=== PATIENT | female | born 1955 | race Caucasian/White ===

== ENCOUNTER 2019-07-06 14:00 | Outpatient (CLI) | payer MEDICARE, SELFPAY ==
--- NOTE | ~2019-07-06 | XR_ITS ---
XR tibia fibula RT 2V DATE: 07/06/2019 14:38 INDICATION: Pain, swelling at the posterior mid calf TECHNIQUE: AP and lateral views COMPARISON: None FINDINGS: There is enthesopathy of the superior pole of the patella at the quadriceps tendon insertio n. There is minimal periarticular spurring of the patella consistent with osteoarthritis. Minimal plantar calcaneal enthesopathy. No fracture, dislocation, periosteal reaction or bone destruction is detected. Normal alignment at th e knee and ankle joints. IMPRESSION: No radiographic etiology for posterior mid calf pain is identified Reviewed, dictated and finalized at location A.
--- NOTE | ~2019-07-06 | US_ITS ---
EXAMINATION: US venous doppler LE RT DATE: 07/06/2019 14:34 INDICATION: Lower limb pain, cramps and spasms TECHNIQUE: Grayscale ultrasound images without and with compression and Doppler ultrasound images of the right lower extremity veins were obtained. COMPARISON: None. FINDINGS: The visualized portions of right common femoral vein, profunda (deep) femoral vein, femoral vein, pop liteal vein, peroneal trunk, posterior tibial veins, peroneal veins, gastrocnemius vein and greater s aphenous vein outflow are patent. IMPRESSION: 1. No deep venous thrombosis in the right lower limb. Reviewed, dictated and finalized at location A.
[2019-07-06 14:56] LABS: Basophils Absolute Auto 0.1 K/mm3 (0.0-0.1); Basophils Percent Auto 0.8 % (0.2-1.2); Eosinophils Absolute Auto 0.3 K/mm3 (0-0.3); Eosinophils Percent Auto 2.4 % (0-4.4); Hematocrit 43.8 % (37.0-47.0); Immature Granulocyte Absolute 0.04 K/mm3 (0.00-0.031); Immature Granulocyte Percent A 0.3 % (0-0.5); Lymphocytes Absolute Auto 3.17 K/mm3 (0.9-3.2); Lymphocytes Percent Auto 27.3 % (18.3-44.2); Mean Corpuscular Hemoglobin 28.7 pg (26-34); Mean Corpuscular Volume 89.9 fl (80-100); Mean Platelet Volume 10.2 fl (7.4-10.4); Monocytes Absolute Auto 0.6 K/mm3 (0.1-0.6); Monocytes Percent Auto 5.1 % (2.6-8.5); Neutrophils Absolute Auto 7.5 K/mm3 (1.3-6.7); Neutrophils Percent Auto 64.1 % (45.5-73.1); Platelet Count Result 382 k/mm3 (150-375); Red Blood Count 4.87 M/mm3 (4.2-5.4); Red Cell Distribution Width 13.8 % (11.5-14.5); White Blood Count 11.6 K/mm3 (4.5-10.0)
[2019-07-06 15:05] LABS: Alanine Aminotransferase 92 U/L (4-35); Albumin Level 4.3 g/dL (3.5-5.1); Alkaline Phosphatase 110 U/L (38-126); Aspartate Amino Transferase 125 U/L (14-36); Bilirubin,Total 0.4 mg/dL (0.2-1.3); Blood Urea Nitrogen 16 mg/dL (7-17); CRP 2.5 mg/dL (<1.0); Carbon Dioxide 25 mmol/L (22-30); Chloride 105 mmol/L (98-107); Creatine Kinase 45 U/L (30-135); Estimated Glomerular Filt Rate > 60; Glucose 85 mg/dL (65-105); Lactate Dehydrogenase 658 U/L (313-618); Potassium 4.2 mmol/L (3.4-5.0); Sodium 138 mmol/L (137-145); Uric Acid 8.4 mg/dL (2.5-7.5)
[2019-07-06 15:45] LABS: Erythrocyte Sedimentation Rate 24 mm/hr (0-20)
[2019-07-10 02:12] LABS: Aldolase 14.1 U/L (<=8.1)
== END 2019-07-06 14:01 | disposition home or self-care (01) ==
PROVIDERS: PCP Family Medicine Adolescent Medicine; Visit Provider Internal Medicine
DX: M19.90 Unspecified osteoarthritis, unspecified site (principal); R25.2 Cramp and spasm; R89.9 Unspecified abnormal finding in specimens from other organs, systems and tissues; M79.89 Other specified soft tissue disorders
CPT/HCPCS: 36415; 73590; 80053; 82085; 82550; 83615; 83735; 84550; 85025; 85652; 86140; 93971

== ENCOUNTER 2019-07-14 08:29 | Outpatient (CLI) | payer MEDICARE, SELFPAY ==
--- NOTE | ~2019-07-14 | MR_ITS ---
EXAMINATION: MR lower leg RT wo/w con DATE: 07/14/2019 10:55 INDICATION: Right calf pain. TECHNIQUE: Magnetic resonance imaging (MRI) of the right tibia and fibula was performed without and w ith 19 mL MultiHance intravenous contrast. Sequences included coronal, axial, and sagittal T1-weighte d FSE and STIR FSE, axial T1-weighted FS FSE, and postcontrast axial and sagittal T1-weighted FS FSE. COMPARISON: Right tibia and fibula radiographs 07/06/2019 FINDINGS: Bone alignment is normal. No fracture. There is mild osteoarthritis of the knees. The muscl es are normal. There is subcutaneous edema at the anterior and lateral aspects of the right lower leg . IMPRESSION: 1. No etiology for right calf pain. Reviewed, dictated and finalized at location A.
--- NOTE | ~2019-07-14 | US_ITS ---
EXAMINATION: US abdomen complete DATE: 07/14/2019 11:11 INDICATION: Abnormal liver function tests. TECHNIQUE: Multiple grayscale and Doppler ultrasound images of the abdomen were obtained. COMPARISON: Chest CT 11/01/2018 FINDINGS: Abdominal aorta is normal in caliber. The visualized portions of the head, body, and tail o f the pancreas are normal. The inferior vena cava is normal. There is diffuse hepatic steatosis. Ther e is normal flow in main portal vein. The gallbladder is normal in size and contains sludge. No galls tones or gallbladder wall thickening. There was no sonographic Calero sign. The common duct is normal and measures 4 mm. The kidneys are normal in size. The spleen is normal in size. IMPRESSION: 1. Diffuse hepatic steatosis. 2. Gallbladder sludge. No evidence of acute cholecystitis. Reviewed, dictated and finalized at location A.
[2019-07-14 09:57] LABS: Estimated Glomerular Filt Rate > 60
== END 2019-07-14 08:30 | disposition home or self-care (01) ==
PROVIDERS: PCP Family Medicine Adolescent Medicine; Visit Provider Internal Medicine
DX: R25.2 Cramp and spasm (principal); R89.9 Unspecified abnormal finding in specimens from other organs, systems and tissues; M79.661 Pain in right lower leg; K76.0 Fatty (change of) liver, not elsewhere classified; K83.9 Disease of biliary tract, unspecified
CPT/HCPCS: 36415; 73720; 76700; 84182; 86235; A9577

== ENCOUNTER 2019-11-15 14:53 | Outpatient (CLI) | payer MEDICARE, SELFPAY ==
--- NOTE | ~2019-11-15 | CT_ITS ---
EXAMINATION:CT lung screening DATE: 11/15/2019 15:22 INDICATION: Personal history of tobacco dependence. Smoker who quit 5 years ago with 54 pack year his tory. TECHNIQUE: Computed tomography (CT) of the chest was performed without intravenous contrast. Automate d exposure control and iterative reconstruction technique were employed. The dose-length product (DLP ) was 163.19 mGy-cm. COMPARISON: Chest CT 11/01/2018 FINDINGS: There is mild emphysema. There is a 4 mm nodule in right lower lobe without change. There i s mild atelectasis bilaterally. There is a 4 mm nodule in lingula without change. No pleural effusion . The heart size is normal. There are coronary artery calcifications. No pericardial effusion. There is mild thoracic spondylosis. IMPRESSION: 1. Lung-RADS category 2: Benign appearance or behavior. Continue annual screening with noncontrast lo w-dose chest CT in 12 months. Reviewed, dictated and finalized at location A. IMPRESSION: 1. Lung-RADS category 2: Benign appearance or behavior. Continue annual screeni ng with noncontrast low-dose chest CT in 12 months.
== END 2019-11-15 14:54 | disposition home or self-care (01) ==
PROVIDERS: PCP Family Medicine Adolescent Medicine; Visit Provider Internal Medicine Critical Care Medicine
DX: Z12.2 Encounter for screening for malignant neoplasm of respiratory organs (principal); Z87.891 Personal history of nicotine dependence
CPT/HCPCS: G0297

== ENCOUNTER 2019-11-23 15:10 | Inpatient (IN) | payer MEDICARE, SELFPAY ==
[2019-11-23] VITALS (15 sets, daily range): BP systolic 120–163; BP diastolic 64–90; PULSE 71–96; RESP 14–19; TEMP 36.3–36.8; O2SAT 96–100; BMI 41.1
--- NOTE | ~2019-11-23 | XR_ITS ---
EXAMINATION: XR chest 1V portable INDICATION: Shortness of breath, STEMI TECHNIQUE: Portable AP chest at 0849 hours COMPARISON: 07/06/2017 FINDINGS: The lungs are free of acute opacities. There is no pleural effusion or pneumothorax. The ca rdiomediastinal silhouette is normal. Mild osteoarthritis is noted in the shoulders. IMPRESSION: 1. No acute cardiopulmonary abnormality. Reviewed, dictated and finalized at location B.
--- NOTE | 2019-11-23 15:13 | ECG_ITS ---
Measurements Intervals [place] Rate: 89 P: 91 [place]: 185 QRS: 101 QRSD: 94 T: 75 QT: 371 QTc: 452 Interpretive Statements SINUS RHYTHM LIMB LEAD REVERSAL RSR' IN V1 OR V2, CONSIDER RIGHT VENTRICULAR HYPERTROPHY OR RIGHT VCD BORDERLINE ST ABNORMALITY- ANTEROLATERAL LEADS BASELINE ARTIFACT- V1 BORDERLINE ECG Electronically Signed On 11-23-2019 16:02:12 CDT by Naveen Gant D.O.
--- NOTE | 2019-11-23 15:21 | ED.CHESTPAIN ---
HPI - Chest Pain General Chief Complaint: Chest Pain Stated Complaint: STEMI Source: RN notes reviewed History of Present Illness HPI narrative: Patient presents emergency department via EMS for chest pain. Patient states pain began approximately an hour ago located in the midsternal chest. Patient states pain is described as a pressure with radiation to left arm of the jaw. Patient became diaphoretic with the pain. States taking 324 mg aspirin prior to arrival. When EMS arrived EKG showed elevation in leads III and aVF with depression in leads I and V6 and STEMI was called. Patient denies any previous cardiac history Related Data Home Medications Medication Instructions Recorded Confirmed Lactobacillus acidophilus PO 02/04/19 ascorbic acid-multivit,mins 18 mg PO 02/04/19 1,000 mg-multivitamin with minerals no.18 tablet aspirin 81 mg tablet,delayed 81 mg PO DAILY 02/04/19 release fluticasone 232 mcg-salmeterol 14 1 puff INHALATION BID 02/04/19 mcg/actuation breath activated powdr fluticasone propionate 50 2 spray NASAL DAILY 02/04/19 mcg/actuation nasal spray,suspension furosemide 20 mg tablet 20 mg PO QAM 02/04/19 magnesium PO 02/04/19 potassium chloride PO 02/04/19 Allergies Allergy/AdvReac Type Severity Reaction Status Date / Time No Known Allergies Allergy Unverified 07/05/19 11:53 Review of Systems Review of Systems: Narrative: Gen.: Denies fevers or chills reports diaphoresis Eyes: Denies eye pain or visual change ENT: Denies congestion Respiratory: Reports shortness of breath CV: See HPI GI: Denies abdominal pain nausea, emesis or diarrhea Musculoskeletal: Denies back pain or muscle pain Neuro: Denies numbness, tingling, weakness or focal weakness Skin: Denies rash Except as documented, all other systems reviewed and negative FOR[facility]LY [facility] Past Medical History Medical History COPD (chronic obstructive pulmonary disease) Inflammatory arthritis Muscle cramps (~12/2018) RT lower extremity Surgical History Surgical History H/O: hysterectomy Family History Family History Mother Lung cancer Grandparent COPD (chronic obstructive pulmonary disease) Social History Social History Smoking packs per day: 1 Smoking cigarettes per day: 20.0 Years smoked: 54 Smoking pack-years: 54.00 Smoking status: Former smoker Alcohol intake: never Exam Narrative: Exam Narrative: APPEARANCE: No acute distress, nontoxic, resting in bed EYES: EOMI HEENT: Normocephalic, atraumatic, OMM RESPIRATORY: No respiratory distress Clear to auscultation bilaterally with no rhonchi wheezing or rales. CARDIOVASCULAR: Regular rate and rhythm without murmurs rubs or gallops. ABDOMINAL: Soft, nontender, nondistended, no rebound or guarding MUSCULOSKELETAl: Moves all extremities. No clubbing, cyanosis or edema. NEURO: Awake and alert. Following commands, speech normal, no focal deficits SKIN:: Warm, dry. No rashes lesions or abrasions PSYCHIATRIC: Normal affect/mood, Course Course Emergency Course: Code STEMI called upon EMS initial call. Dr goodwin and Dr. Burk are in the emergency department around the patient arrival to evaluate the patient. After review of the patient EKG and the patient's current symptoms Dr. Goodwin will take the patient to the Hospice Home Care Coordinator This with patient plan for Hospice Home Care Coordinator in agreement Vital Signs Vital signs: Vital Signs Temperature 97.6 F 11/23/19 15:10 Pulse Rate 90 11/23/19 15:10 Respiratory Rate 16 11/23/19 15:10 Blood Pressure 144/68 H 11/23/19 15:10 Pulse Oximetry 98 11/23/19 15:10 Temperature 97.6 F 11/23/19 15:10 Pulse Rate 88 11/23/19 15:21 Respiratory Rate 19 11/23/19 15:21 Blood Pressure 139/80 11/23/19 15:21 Pulse Oximetry
[2019-11-23 15:29] LABS: Basophils Absolute Auto 0.1 K/mm3 (0.0-0.1); Basophils Percent Auto 0.5 % (0.2-1.2); Eosinophils Absolute Auto 0.2 K/mm3 (0-0.3); Eosinophils Percent Auto 1.5 % (0-4.4); Hematocrit 42.2 % (37.0-47.0); Hemoglobin 13.8 g/dL (12.0-15.0); Immature Granulocyte Absolute 0.05 K/mm3 (0.00-0.031); Immature Granulocyte Percent A 0.5 % (0-0.5); Mean Corpuscular HGB Conc 32.7 g/dl (32-36); Mean Corpuscular Hemoglobin 29.4 pg (26-34); Mean Platelet Volume 10.3 fl (7.4-10.4); Monocytes Absolute Auto 0.6 K/mm3 (0.1-0.6); Monocytes Percent Auto 5.2 % (2.6-8.5); Neutrophils Percent Auto 72.3 % (45.5-73.1); Platelet Count Result 325 k/mm3 (150-375); Red Blood Count 4.69 M/mm3 (4.2-5.4); Red Cell Distribution Width 13.7 % (11.5-14.5)
--- NOTE | 2019-11-23 15:31 | PM.IMHP ---
H&P: HPI History of Present Illness Date/Time: 11/23/19 15:31 Chief complaint: STEMI Narrative: Date of service-11/23/2019 chief complaint: Chest pain HPI: Heather Solorzano is a 64 year old female with COPD;history of tobacco abuse; no known prior cardiac history. Patient was brought to [facility] ER on 11/23/2019 with complaints of chest discomfort. Patient states that she started having chest discomfort couple of days ago which lasted for about 15 minutes. Today, she had severe recurrent chest discomfort that started about an hour prior to arrival to the ER. She described the chest pain as severe chest discomfort in the anterior chest with radiation to the left arm and jaw. Her symptoms are associated with severe dizziness without syncope; diaphoresis, Nausea and dry heaves. Patient's EMS EKG showed sinus rhythm, subtle ST elevation in the inferior leads with ST depression in leads 1 and aVL. Repeat EKG in the ER did not show any significant ST-T abnormality. Due to patient's ongoing severe chest discomfort, cardiac catheterization lab was activated. Emergent coronary angiogram showed occluded proximal -mid [id number]-[id number]-[id number] vessel; no significant obstructive disease in the left coronary system. She underwent primary PCI/ YOLY x2 of proximal-mid RCA with episcopalian of YVAN 3 flow. Left ventriculogram showed overall preserved LV systolic function with inferior wall hypokinesis. Patient's chest pain improved after successful PCI. Review of Systems Review of Systems: Narrative: General: Negative for fever, chills, fatigue Psychological: Negative for anxiety, depression Ophthalmic: negative for loss of vision ENT: Negative for epistaxis, headaches Allergy and immunology: Negative for hives, nasal congestion Hematologic and lymphatic: Negative for overt bleeding problems Endocrine: Negative for hot flashes, palpitations Respiratory: Negative for cough, hemoptysis Cardiovascular: Positive for chest pain, shortness of breath, dizziness Gastrointestinal: Negative for abdominal pain, positive for nausea and dry heaves Musculoskeletal: Negative for myalgia, joint pains Neurological: Negative for weakness Dermatological: Negative for rash, skin discoloration PMFSH Past Medical History Medical History COPD (chronic obstructive pulmonary disease) Inflammatory arthritis Muscle cramps (~12/2018) RT lower extremity Surgical History Surgical History H/O: hysterectomy Family History Family History Mother Lung cancer Grandparent COPD (chronic obstructive pulmonary disease) Social History Social History Smoking packs per day: 1 Smoking cigarettes per day: 20.0 Years smoked: 54 Smoking pack-years: 54.00 Smoking status: Former smoker Alcohol intake: never Meds Home Medications and Allergies Home Medications Medication Instructions Recorded Confirmed Type Lactobacillus acidophilus PO 02/04/19 History ascorbic acid-multivit,mins 18 mg PO 02/04/19 History 1,000 mg-multivitamin with minerals no.18 tablet aspirin 81 mg tablet,delayed 81 mg PO DAILY 02/04/19 History release fluticasone 232 mcg-salmeterol 14 1 puff INHALATION BID 02/04/19 History mcg/actuation breath activated powdr fluticasone propionate 50 2 spray NASAL DAILY 02/04/19 History mcg/actuation nasal spray,suspension furosemide 20 mg tablet 20 mg PO QAM 02/04/19 History magnesium PO 02/04/19 History potassium chloride PO 02/04/19 History Allergies Allergy/AdvReac Type Severity Reaction Status Date / Time No Known Allergies Allergy Unverified 07/05/19 11:53 Exam Narrative: Exam Narrative: PHYSICAL EXAMINATION: GENERAL: obese, Alert, oriented, distress due to ongoing ch
[2019-11-23 15:39] LABS: Partial Thromboplastin Time 23.2 SECONDS (22.3-36.8); Prothrombin Time 13.2 Seconds (11.1-14.7)
[2019-11-23 15:40] LABS: Alanine Aminotransferase 114 U/L (4-35); Albumin Level 4.1 g/dL (3.5-5.1); Alkaline Phosphatase 108 U/L (38-126); Anion Gap 9 mmol/L (8-16); Aspartate Amino Transferase 160 U/L (14-36); Bilirubin,Total 0.3 mg/dL (0.2-1.3); Blood Urea Nitrogen 11 mg/dL (7-17); Calcium 9.2 mg/dL (8.4-10.2); Carbon Dioxide 25 mmol/L (22-30); Chloride 104 mmol/L (98-107); Estimated Glomerular Filt Rate 56; Glucose 126 mg/dL (65-105); Lipase 186 U/L (23-300); Potassium 3.7 mmol/L (3.4-5.0); Sodium 138 mmol/L (137-145)
--- NOTE | 2019-11-23 15:55 | PC.NURSE ---
1502 Stemi called overhead from the field via EMS 1510 Pt. arrived 1511 O2 placed on Pt. via nasal cannula at 2LPM 1512 EKG completed and shown to EDP 1513 Bag of NS was initiated at TKO rate via EMS IV 1514 paddles placed on Pt. chest 1515 second IV obtained, first IV obtained by EMS 1517 Pt. shaved bilaterally in groin area 1521 blood sent to lab 1521 Pt. left department with laboratory mechanical technician Pt. took a full strength aspirin (324mg) approx 1400 when their chest pain started.
[2019-11-23 16:07] LABS: Troponin I 0.402 ng/mL (0.000-0.034)
--- NOTE | 2019-11-23 16:23 | WPDCARDPROC ---
Cardiac Cath Procedure Note Date of procedure:: 11/23/19 Performing physician:: Jordan Hernandez MD Procedure Procedure note:: EMERGENT CARDIAC CATHETERIZATION AND PERCUTANEOUS CORONARY INTERVENTION REPORT DATE OF PROCEDURE: 11/23/2019 INDICATION FOR PROCEDURE: Acute coronary syndrome -inferior ST-elevation microinfarction BRIEF CLINICAL HISTORY:Heather Solorzano is a 64 year old female with COPD;history of tobacco abuse; no known prior cardiac history. Patient was brought to [facility] ER on 11/23/2019 with complaints of chest discomfort. Patient states that she started having chest discomfort couple of days ago which lasted for about 15 minutes. Today, she had severe recurrent chest discomfort that started about an hour prior to arrival to the ER. She described the chest pain as severe chest discomfort in the anterior chest with radiation to the left arm and jaw. Her symptoms are associated with severe dizziness without syncope; diaphoresis, Nausea and dry heaves. Patient's EMS EKG showed sinus rhythm, subtle ST elevation in the inferior leads with ST depression in leads 1 and aVL. Repeat EKG in the ER did not show any significant ST-T abnormality. Due to patient's ongoing severe chest discomfort, cardiac catheterization lab was activated for primary PCI. PROCEDURES PERFORMED: 1. Emergent Left heart catheterization- Selective left and right coronary angiogram; left ventriculogram and hemodynamic assessment 2. Primary percutaneous coronary intervention- balloon angioplasty and stenting of totally occluded proximal -mid RCA using 2 sirolimus eluting stents in an overlapping fashion ( 3.5 x 30 mm; 4.0 x 35 mm) with buddhism of YVAN 3 flow. 3. Selective right common femoral angiogram and deployment of Angio-Seal hemostatic device 4. Moderate sedation-CPT code 71587 MODERATE SEDATION: Midazolam 1 mg; fentanyl 25 mcg. Start time 1535 , Stop time 1615 ; Total owug-yr-wmbg time 40 minutes; Larry Lee RN was trained observer for moderate sedation. ACCESS SITE: Right common femoral artery PROCEDURE NOTE: After obtaining informed consent, patient was emergently brought to catheterization lab and prepped and draped in a usual sterile manner. After local anesthesia with lidocaine, right common femoral artery access was taken with micropuncture needle followed by insertion of a 6 Grenadian sheath. Selective left and right coronary angiogram was performed using 5 Grenadian JL4 diagnostic catheter and JR4 guide catheters respectively. Orthogonal views were taken. After completion of PCI, a 5 Grenadian pigtail catheter was advanced in the LV cavity and was flushed with normal saline. LV pressure measurement was performed. After this, left ventriculogram was performed. The catheter was flushed again, and gradient across the aortic valve was measured on the pullback of the catheter. Selective right common femoral angiogram was performed after PCI followed by successful deployment of Angio-Seal vascular closure device. Patient tolerated procedure well without any immediate procedure related complications. FINDINGS: LEFT MAIN CORONARY: the left main coronary artery is a medium caliber vessel, no significant focal stenosis seen. LEFT ANTERIOR DESCENDING ARTERY: The LAD is a medium caliber vessel, tortuous, tapers distally and reaches the LV apex. Diagonal branches are tortuous vessels. No significant focal stenosis is seen LEFT CIRCUMFLEX ARTERY: the LCX is the small to medium caliber, gives rise to medium caliber OM1 branch and small size OM2 branch. No significant focal stenosis seen. RIGHT CORONARY ARTERY: The right coronary artery is totally occluded in the proximal-mid nmkwuhq-jffiycq-[id number] vessel. There is also diffuse stenosis in the lower part of the mid segment and also proximal to the total occlusion. After PCI, the vessel is a large caliber vessel, dominant , and gives rise to medium-sized PDA and PL 1-PL 3 branches. LEFT VENTRICU
--- NOTE | 2019-11-23 17:55 | PC.NURSE ---
This patient, Heather Solorzano, was admitted to Intensive Care Unit-12. Patient/family oriented to hospital policies and general routines including ID bracelet, bed and alarms, visiting hours, pain management, procedures, bathroom and other care routines, personal items, smoking policy, room service/diet, and visiting hours. Valuables list has been completed. Information on how to activate the Rapid Response Team has been discussed. Patient/Family are encouraged to report perceived risks to care and to ask questions if they do not understand what they are told or what they should do.
[2019-11-23] MEDS: SODIUM CHLORIDE 0.9% IV 1,000 ML 125 ML IV CONT (18:42)
[2019-11-23] MEDS: TICAGRELOR 90 MG TABLET PO (20:35)
[2019-11-23] MEDS: METOPROLOL TARTRATE 12.5 MG TABLET PO (20:35)
[2019-11-24] VITALS (18 sets, daily range): BP systolic 67–128; BP diastolic 45–68; PULSE 57–95; RESP 12–25; TEMP 35.6–36.8; O2SAT 94–100
[2019-11-24] MEDS: NITROGLYCERIN SL 0.4 MG TABLET SUBLINGUAL (04:02)
[2019-11-24] MEDS: SODIUM CHLORIDE 0.9% IV 250 ML 999 ML IV CONT (04:05)
[2019-11-24 04:45] LABS: Anion Gap 5 mmol/L (8-16); Blood Urea Nitrogen 11 mg/dL (7-17); Calcium 8.4 mg/dL (8.4-10.2); Carbon Dioxide 24 mmol/L (22-30); Chloride 111 mmol/L (98-107); Estimated CRCL calculation 74 ml/min; Estimated Glomerular Filt Rate > 60; Glucose 93 mg/dL (65-105); Potassium 4.1 mmol/L (3.4-5.0); Sodium 140 mmol/L (137-145)
--- NOTE | 2019-11-24 08:00 | ECG_ITS ---
Measurements Intervals [place] Rate: 63 P: 77 DE: 176 QRS: 47 QRSD: 84 T: -23 QT: 437 QTc: 448 Interpretive Statements SINUS RHYTHM CANNOT RULE OUT SEPTAL INFARCT, AGE INDETERMINATE T WAVE ABNORMALITY IN INFERIOR LEADS- CONSIDER ISCHEMIA ABNORMAL ECG Electronically Signed On 11-24-2019 9:12:49 CDT by Naveen Gant D.O.
[2019-11-24] MEDS: ATORVASTATIN 40 MG TABLET 80 MG PO (08:23)
[2019-11-24] MEDS: ASPIRIN 81 MG ENTERIC TABLET PO (08:23)
[2019-11-24] MEDS: TICAGRELOR 90 MG TABLET PO ×2 (08:24→20:38)
--- NOTE | 2019-11-24 08:52 | ECHO_ITS ---
Patient Info Name: Heather Solorzano Age: 64 years : 1955 Gender: Female Ht: 64 in Wt: 239 lbs BSA: 2.27 m2 BP: 95 / 51 mmHg Heart Rhythm: Sinus Rhythm Technical Quality: Good Exam Date: 11/24/2019 9:38 AM Exam Location: [facility] Pulmonary Patient Status: Inpatient Admit Date: 11/23/2019 Staff Ordering Physician: Cathy Grove MD Stamp Pad Finisher: John Calero, GEORGINA, RT Attending Provider: Jordan Hernandez MD Exam Type: CA echo dop color flow w con Study Info Complete two-dimensional, color flow and Doppler transthoracic echocardiogram is performed with contrast to opacify the left ventricle and to improve the deliniation of the left ventricle endocardial borders. Summary 1. Left ventricular systolic function is normal, estimated at 65-70%. 2. There is mildly increased left ventricular wall thickness. 3. Hypokinesis of the basal inferior wall. 4. The left ventricular diastolic function is grade I diastolic dysfunction. 5. There is mild mitral valve stenosis. 6. There is trace tricuspid valve regurgitation. 7. No pulmonary hypertension, estimated pulmonary arterial systolic pressure is 34 mmHg. Left Ventricle Left ventricular chamber dimension is normal. Left ventricular systolic function is normal, estimated at 65-70%. There is mildly increased left ventricular wall thickness. The left ventricular diastolic function is grade I diastolic dysfunction. Hypokinesis of the basal inferior wall. Right Ventricle Right ventricular chamber dimension is normal. Right ventricular systolic function is normal. Left Atria Left atrial chamber dimension is normal. Right Atria Right atrial chamber dimension is normal. Aortic Valve The aortic valve is not well visualized. There is no aortic valve stenosis. There is no aortic valve regurgitation. Pulmonic Valve The pulmonic valve is not well visualized. Mitral Valve The mitral valve has normal leaflets. There is mild mitral valve stenosis. The mitral valve annulus is mildly calcified. Tricuspid Valve The tricuspid valve leaflets are normal. There is trace tricuspid valve regurgitation. No pulmonary hypertension, estimated pulmonary arterial systolic pressure is 34 mmHg. Pericardium/Pleural The pericardium appears normal. There is trivial pericardial effusion. Inferior Vena Cava Dilated inferior vena cava with >50% collapse upon inspiration consistent with elevated right atrial pressure, 10 mmHg. Aorta The aortic root size at the sinus of Valsalva is normal. There is mild aortic atherosclerosis. Left Ventricular Outflow Tract Name Value Normal LVOT 2D LVOT Diameter 1.87 cm LVOT Doppler LVOT Peak Gradient 6 mmHg LVOT Mean Gradient 3 mmHg LVOT VTI 25.20 cm LVOT VTI/AV VTI Ratio 0.66 LVOT Stroke Volume 69.12 ml LVOT CO 4.35 l/min LVOT CI 1.92 L/min/m2 Pulmonic Valve
[2019-11-24] MEDS: SODIUM CHLORIDE 0.9% IV 500 ML 999 ML (08:56)
[2019-11-24 09:15] LABS: Basophils Absolute Auto 0.1 K/mm3 (0.0-0.1); Basophils Percent Auto 0.5 % (0.2-1.2); Eosinophils Absolute Auto 0.1 K/mm3 (0-0.3); Eosinophils Percent Auto 1.2 % (0-4.4); Hematocrit 37.3 % (37.0-47.0); Hemoglobin 11.8 g/dL (12.0-15.0); Immature Granulocyte Absolute 0.03 K/mm3 (0.00-0.031); Immature Granulocyte Percent A 0.3 % (0-0.5); Lymphocytes Absolute Auto 2.05 K/mm3 (0.9-3.2); Lymphocytes Percent Auto 18.6 % (18.3-44.2); Mean Corpuscular HGB Conc 31.6 g/dl (32-36); Mean Corpuscular Hemoglobin 28.8 pg (26-34); Mean Platelet Volume 10.8 fl (7.4-10.4); Monocytes Absolute Auto 0.6 K/mm3 (0.1-0.6); Monocytes Percent Auto 5.2 % (2.6-8.5); Neutrophils Absolute Auto 8.2 K/mm3 (1.3-6.7); Neutrophils Percent Auto 74.2 % (45.5-73.1); Platelet Count Result 289 k/mm3 (150-375)
[2019-11-24 09:28] LABS: Lactic Acid Reflex 2.5 mmol/L (0.7-2.1)
[2019-11-24 09:30] LABS: Magnesium 1.9 mg/dL (1.6-2.3); Phosphorus 2.9 mg/dL (2.5-4.5)
[2019-11-24 09:32] LABS: Anion Gap 7 mmol/L (8-16); Blood Urea Nitrogen 10 mg/dL (7-17); Calcium 8.1 mg/dL (8.4-10.2); Carbon Dioxide 20 mmol/L (22-30); Chloride 112 mmol/L (98-107); Estimated CRCL calculation 74 ml/min; Estimated Glomerular Filt Rate > 60; Glucose 112 mg/dL (65-105); Sodium 139 mmol/L (137-145)
[2019-11-24] MEDS: PERFLUTREN LIPID MICROSPHERES 1.5 ML VIAL DILUTED TO 10 ML TOTAL VOLUME IV PUSH (10:24)
--- NOTE | 2019-11-24 11:07 | PM.PNCARD ---
Progress Note: A&P Assessment and Plan (1) ST elevation (STEMI) myocardial infarction: Code(s): I21.3 - ST elevation (STEMI) myocardial infarction of unspecified site Status: Acute Assessment and Plan: in regards of STEMI, status post 2 drug-eluting stent to proximal and mid RCA. Continue aspirin and Brilinta. she is having chest pain however repeat EKG does not show any ST elevations. no indication to repeat cardiac catheterization. please avoid sublingual nitroglycerin the due to hypotension. may use morphine as needed. awaiting echocardiogram. continue lisinopril and beta claudio blood pressure levels today. (2) COPD (chronic obstructive pulmonary disease): Code(s): J44.9 - Chronic obstructive pulmonary disease, unspecified Status: Acute Assessment and Plan: patient does have COPD and therefore recommend bronchodilators add albuterol add fluticasone salmeterol Subjective Date/time seen: Date of service:11/24/19 11:07 Interval history: patient states that since cardiac evaluation she feels some chest tightness 4/10 which is constant with no aggravating or relieving factors. Apparently last night received sublingual nitroglycerin and dropped down her blood pressure. Blood pressure currently 89/50. EKG this morning shows sinus rhythm with no ST elevation. Review of Systems Constitutional: Constitutional: Denies chills, Denies fever(s) and Denies poor appetite Eyes: Eyes: Denies eye discharge, Denies loss of vision, Denies eye pain and Denies photophobia ENT: Denies dizziness, Denies epistaxis, Denies nasal congestion and Denies sore throat Cardiovascular: Cardiovascular: Reports chest pain, Denies syncope, Denies pedal edema, Denies leg edema, Denies palpitations, Denies dyspnea, Denies dyspnea on exertion and Denies orthopnea Respiratory: Respiratory: Denies cough, Denies dyspnea, Denies dyspnea on exertion and Denies wheezing Gastrointestinal: Gastrointestinal: Denies abdominal pain, Denies diarrhea, Denies nausea and Denies vomiting Genitourinary: Genitourinary: Denies hematuria, Denies genital lesions and Denies dysuria Musculoskeletal: Musculoskeletal: Denies arthralgias, Denies joint swelling and Denies numbness Integumentary/Breasts: Skin/Breast: Denies pruritus and Denies rash Neurologic: Denies dizziness, Denies syncope, Denies loss of vision and Denies numbness Psychiatric: Psychiatric: Denies anxiety and Denies depression Endocrine: Endocrine: Denies cold intolerance, Denies heat intolerance and Denies palpitations Hematologic/Lymphatic: Hematologic/Lymphatic: Denies easy bleeding and Denies easy bruising Allergic/Immunologic: Allergic/Immunologic: Denies urticaria and Denies wheezing Exam Const: General: cooperative, comfortable, no acute distress, alert and awake Nutritional Appearance: well nourished Orientation/consciousness: patient oriented x3 HENMT: Head: normal to inspection, normocephalic and atraumatic Ears: hearing grossly normal bilaterally General nose exam: Normal external nose present, Normal nares present and no nasal discharge noted Face and sinus: normal facial exam and no erythema Mouth: No drooling and No restricted motion Throat: uvula midline Eyes: General: appearance normal, both eyes and all related structures Alignment and Position: position normal Conjunctivae: conjunctivae normal Sclera: sclerae normal Direct Ophthalmoscopy: No photophobia Neck: Neck: normal visual inspection and no JVD Thyroid: thyroid normal Carotids: no bruits Lymphatic: lymphedema not noted Chest: Chest palpation & inspection: normal inspection of the chest and no tenderness Resp: Effort & Inspection: normal respiratory effort and no nasal flaring Auscultation: clear to auscultation bilaterally, no crackles, no rales and no wheezes Cardio: Jugular venous distension: no JVD Rate: regular rate Rhythm: regular rhythm Heart sounds: S1 normal heart so
[2019-11-24 12:12] LABS: Reflex Lactic Acid Yes or No Add Lactic
[2019-11-24 13:14] LABS: Lactic Acid 1.6 mmol/L (0.7-2.1)
--- NOTE | 2019-11-24 13:48 | WPDCNINT ---
Assessment and Plan Assessment and plan (1) ST elevation (STEMI) myocardial infarction: Code(s): I21.3 - ST elevation (STEMI) myocardial infarction of unspecified site Status: Acute Assessment and Plan: patient presented with chest pain, retrosternal pressure radiating to left arm and jaw along with diaphoresis, shortness breath. Patient taken to the cardiac brine room laborer where she was found to have 100% occlusion RCA, status post successful PTCA/ PCI with YOLY x2 to proximal mid RCA, EF of 55-60% - continue Brilinta and aspirin, - patient also started on GHANSHYAM-inhibitor and beta-claudio which was held secondary to low blood pressure - static echocardiogram has been done and report is pending, concern for RV infarct given low blood pressures. Patient has been fluid-resuscitated - lactic acid is normal, patient is not anemic - no tachycardia noted (2) COPD (chronic obstructive pulmonary disease): Code(s): J44.9 - Chronic obstructive pulmonary disease, unspecified Status: Acute Assessment and Plan: patient with history of COPD continue albuterol and fluticasone inhalers (3) Hypotension: Qualifiers: Hypotension type: unspecified hypotension type Qualified Code(s): I95.9 - Hypotension, unspecified Code(s): I95.9 - Hypotension, unspecified Status: Acute Assessment and Plan: patient hypotensive post STEMI status post stent x2 to RCA. concern for RV infarct, echocardiogram has been done and pending results. - patient adequately fluid-resuscitated, will give additional IV fluid bolus - Repeat EKG did not show any acute ST-T changes - lactic acid is normal - discussed with cardiology Additional Plan discussed with patient at length and updated with her condition and plan of care. I answered all questions discuss with cardiology at length regarding a hypotension. code status: Full code critical care time spent: 47 minutes Due to a high probability of clinically significant, life threatening deterioration, the patient required my highest level of preparedness to intervene emergently and I personally spent this critical care time directly and personally managing the patient. This critical care time included obtaining a history; examining the patient; pulse oximetry; ordering and review of studies; arranging urgent treatment with development of a management plan; evaluation of patient's response to treatment; frequent reassessment; and discussions with other providers. It was exclusive of separately billable procedures and treating other patients and teaching time. Please see Assessment and Plan section and the rest of the note for further information on patient assessment and treatment Liquor Commissioner Consult Note Consult date: 11/24/19 Time Seen: 07:09 Reason for consult: STEMI status post PTCA/PCI with YOLY x2 to proximal mid RCA, EF 55-60% HPI: Heather Solorzano is a 64 year old female a past medical history of COPD, inflammatory arthritis presented to the ED via EMS on 11/23/2019 with complains chest pain that began hour prior to arrival to the hospital, midsternal with radiation to left arm and jaw. Patient also complained of diaphoresis and shortness of breath. EKG showed ST-elevation in leads 3 and AVF, patient was taken to the cardiac brine room laborer where she was found to under% occlusion of the RCA status post PTCA/PCI with YOLY x2 to proximal mid RCA, EF 55-60%. Patient was transfer the ICU for further management. Overnight patient did have some chest pain, , received nitroglycerin dropped her blood pressure. Received 750 mL in fluids overnight and received a 500 mL In IV fluids this morning. patient complained of some chest pressure but denies any shortness of breath, diaphoresis, nausea vomiting at this time. Review of Systems Review of Systems: All systems reviewed & are unremarkable except as noted in HPI and below PMFSH Past Medical History Medical History (Revi
[2019-11-24] MEDS: hetaSTARCH 6%/NACL 500 ML 250 ML IV CONT (14:12)
[2019-11-24] MEDS: ALPRAZolam 0.25 MG TABLET PO (14:48)
[2019-11-24] MEDS: ALBUTEROL SULFATE (*SP) AEROSOL 1 PUFF 2 PUFF INHALATION ×2 (14:52→20:19)
--- NOTE | 2019-11-24 19:31 | PC.NURSE ---
This patient, Heather Solorzano, was transferred to [[id number]] on 11/24/19 at 1931. Personal belongings sent with patient. Belongings list checked and signed with receiving [ ]. Report given to [FAY RN]. Appropriate documentation sent with patient.
[2019-11-24] MEDS: FLUTICASONE/SALMETEROL 230-21 MCG INHALER 1 PUFF 2 PUFF INHALATION (20:19)
[2019-11-24] MEDS: ACETAMINOPHEN 500 MG TABLET 1000 MG PO (20:38)
[2019-11-25] VITALS (12 sets, daily range): BP systolic 112–148; BP diastolic 49–77; PULSE 57–94; RESP 16–22; TEMP 35.8–36.6; O2SAT 94–99
--- NOTE | 2019-11-25 00:55 | PC.NURSE ---
This patient, Heather Solorzano, was received from ICU-12 on 11/24/19 at 1935. Personal belongings list checked and signed. Patient/family oriented to unit policies and routines
[2019-11-25 04:29] LABS: Basophils Absolute Auto 0.1 K/mm3 (0.0-0.1); Basophils Percent Auto 0.6 % (0.2-1.2); Eosinophils Absolute Auto 0.2 K/mm3 (0-0.3); Eosinophils Percent Auto 2.2 % (0-4.4); Hematocrit 35.4 % (37.0-47.0); Hemoglobin 11.2 g/dL (12.0-15.0); Immature Granulocyte Absolute 0.03 K/mm3 (0.00-0.031); Immature Granulocyte Percent A 0.4 % (0-0.5); Lymphocytes Absolute Auto 2.38 K/mm3 (0.9-3.2); Lymphocytes Percent Auto 28.8 % (18.3-44.2); Mean Corpuscular HGB Conc 31.6 g/dl (32-36); Mean Corpuscular Hemoglobin 29.5 pg (26-34); Mean Corpuscular Volume 93.2 fl (80-100); Mean Platelet Volume 10.6 fl (7.4-10.4); Monocytes Absolute Auto 0.5 K/mm3 (0.1-0.6); Monocytes Percent Auto 6.4 % (2.6-8.5); Neutrophils Absolute Auto 5.1 K/mm3 (1.3-6.7); Neutrophils Percent Auto 61.6 % (45.5-73.1); Platelet Count Result 234 k/mm3 (150-375); Red Cell Distribution Width 14.1 % (11.5-14.5); White Blood Count 8.3 K/mm3 (4.5-10.0)
[2019-11-25 04:56] LABS: Anion Gap 2 mmol/L (8-16); Blood Urea Nitrogen 10 mg/dL (7-17); Calcium 8.2 mg/dL (8.4-10.2); Carbon Dioxide 24 mmol/L (22-30); Chloride 113 mmol/L (98-107); Estimated CRCL calculation 71 ml/min; Estimated Glomerular Filt Rate > 60; Glucose 89 mg/dL (65-105); Magnesium 1.9 mg/dL (1.6-2.3); Phosphorus 3.9 mg/dL (2.5-4.5); Sodium 139 mmol/L (137-145)
[2019-11-25] MEDS: ALBUTEROL SULFATE (*SP) AEROSOL 1 PUFF 2 PUFF INHALATION ×3 (06:30→21:15)
[2019-11-25] MEDS: FLUTICASONE/SALMETEROL 230-21 MCG INHALER 1 PUFF 2 PUFF INHALATION ×2 (08:10→21:15)
[2019-11-25] MEDS: ATORVASTATIN 40 MG TABLET 80 MG PO (08:56)
[2019-11-25] MEDS: ASPIRIN 81 MG ENTERIC TABLET PO (08:57)
[2019-11-25] MEDS: TICAGRELOR 90 MG TABLET PO ×2 (08:57→21:32)
--- NOTE | 2019-11-25 11:21 | PM.PNCARD ---
Progress Note: A&P Assessment and Plan (1) ST elevation (STEMI) myocardial infarction: Code(s): I21.3 - ST elevation (STEMI) myocardial infarction of unspecified site Status: Acute Assessment and Plan: Inferior STEMI, status post 2 drug-eluting stent to proximal and mid RCA. Continue aspirin and Brilinta. Discussed the utmost importance of compliance with this medication. Shortness of breath may be exacerbated by Brilinta. Discussed this mechanism in detail. Alternative clopidogrel if necessary but would recommend continuation of Brilinta for as long as possible/ tolerated. Patient verbalized understanding. - Avoid sublingual nitroglycerin due to hypotension. - RV size and function preserved on echo, preserved LV systolic function with basal inferior hypokinesis. -Resume Metoprolol 12.5mg BID today and observe tolerance -Continue statin goal LDL <70. Cardiac rehab as outpatient. -Follow up with Dr. Hernandez as outpatient. -Anticipate discharge tomorrow if tolerating medications. (2) COPD (chronic obstructive pulmonary disease): Code(s): J44.9 - Chronic obstructive pulmonary disease, unspecified Status: Acute Assessment and Plan: Sees Dr. Fierro for COPD, continue bronchodilators. Monitor BB tolerance. Subjective Date/time seen: Date of service: 11/25/19 11:21 Follow-up for inferior ST-elevation [place] Interval history: denies chest pain. Notes a vague sensation around her ribs and back. Complains of intermittent shortness of breath, faint wheezing. otherwise states she feels much better today. Eating well. Received anxiolytic last night slept much better which she feels sleep has made the difference for her. No dizziness, bleeding. Started back on inhalers yesterday which is helping her as well. Wants to walk more, tolerating activity much better. Review of Systems Review of Systems: All systems reviewed & are unremarkable except as noted in HPI and below Constitutional: Constitutional: Reports as per HPI, Reports no additional constitutional complaints, Denies chills, Denies fever(s) and Denies poor appetite Eyes: Eyes: Reports as per HPI, Reports no additional eye complaints, Denies eye discharge, Denies loss of vision, Denies eye pain and Denies photophobia ENT: Reports system reviewed and no additional complaints, except as documented, Reports as per HPI, Denies dizziness, Denies epistaxis, Denies nasal congestion and Denies sore throat Cardiovascular: Cardiovascular: Reports as per HPI, Reports no additional cardiovascular complaints, Denies chest pain, Denies syncope, Denies pedal edema, Denies leg edema, Denies palpitations, Denies dyspnea, Denies dyspnea on exertion and Denies orthopnea Respiratory: Respiratory: Reports as per HPI, Reports no additional respiratory complaints, Denies cough, Denies dyspnea, Denies dyspnea on exertion and Denies wheezing Gastrointestinal: Gastrointestinal: Denies abdominal pain, Denies diarrhea, Denies nausea and Denies vomiting Genitourinary: Genitourinary: Reports no additional female genitourinary complaints, Reports as per HPI, Denies hematuria, Denies genital lesions and Denies dysuria Musculoskeletal: Musculoskeletal: Reports no additional musculoskeletal complaints, Reports as per HPI, Reports arthralgias (R ankle), Denies joint swelling and Denies numbness Integumentary/Breasts: Skin/Breast: Reports system reviewed and no additional complaints, except as docu, Reports as per HPI, Denies pruritus and Denies rash Neurologic: Reports system reviewed and no additional complaints, except as documented, Reports as per HPI, Denies Abnormal speech present, Denies confusion, Denies dizziness, Denies syncope, Denies loss of vision and Denies numbness Psychiatric: Psychiatric: Reports no additional psychiatric complaints, Reports as per HPI, Reports anxiety, Denies confusion and Denies depression Endocrine: Endocrine: Denies cold intolerance, Denies heat in
[2019-11-25] MEDS: METOPROLOL TARTRATE 12.5 MG TABLET PO ×2 (14:43→21:32)
[2019-11-25] MEDS: ALPRAZolam 0.25 MG TABLET PO (17:18)
[2019-11-26] VITALS (9 sets, daily range): BP systolic 133–145; BP diastolic 53–65; PULSE 70–88; RESP 16–18; TEMP 36–36.5; O2SAT 93–100
[2019-11-26 05:37] LABS: Hematocrit 34.9 % (37.0-47.0); Hemoglobin 11.4 g/dL (12.0-15.0); Mean Corpuscular HGB Conc 32.7 g/dl (32-36); Mean Corpuscular Hemoglobin 29.2 pg (26-34); Mean Corpuscular Volume 89.3 fl (80-100); Mean Platelet Volume 10.8 fl (7.4-10.4); Platelet Count Result 260 k/mm3 (150-375); Red Blood Count 3.91 M/mm3 (4.2-5.4); Red Cell Distribution Width 13.8 % (11.5-14.5); White Blood Count 9.7 K/mm3 (4.5-10.0)
[2019-11-26 05:50] LABS: Potassium 3.7 mmol/L (3.4-5.0)
[2019-11-26 06:08] LABS: Anion Gap 6 mmol/L (8-16); Blood Urea Nitrogen 9 mg/dL (7-17); Calcium 8.3 mg/dL (8.4-10.2); Carbon Dioxide 23 mmol/L (22-30); Chloride 109 mmol/L (98-107); Estimated CRCL calculation 80 ml/min; Estimated Glomerular Filt Rate > 60; Glucose 92 mg/dL (65-105); Sodium 138 mmol/L (137-145)
--- NOTE | 2019-11-26 07:14 | PC.NURSE ---
This patient, Heather Solorzano, was transferred to room 261 on 11/26/19 at 0714 via wheelchair. Personal belongings sent with patient. Belongings list checked and signed with receiving. Report given to OLAYINKA Moreland. Appropriate documentation sent with patient.
--- NOTE | 2019-11-26 07:58 | PCDIET ---
pt transferred from [facility] at 0715.
[2019-11-26] MEDS: ATORVASTATIN 40 MG TABLET 80 MG PO (09:29)
[2019-11-26] MEDS: ASPIRIN 81 MG ENTERIC TABLET PO (09:29)
[2019-11-26] MEDS: METOPROLOL TARTRATE 12.5 MG TABLET PO (09:30)
[2019-11-26] MEDS: TICAGRELOR 90 MG TABLET PO (09:30)
[2019-11-26] MEDS: ALBUTEROL SULFATE (*SP) AEROSOL 1 PUFF 2 PUFF INHALATION (09:40)
[2019-11-26] MEDS: FLUTICASONE/SALMETEROL 230-21 MCG INHALER 1 PUFF 2 PUFF INHALATION (09:42)
--- NOTE | 2019-11-26 14:44 | PM.DS ---
DS: Admitting Diagnosis Admitting Diagnosis Admitting Diagnosis: STEMI DS: Summary Hospital Course Reason for hospitalization: Acute ST-elevation [place] Hospital Course: this is a 64-year-old patient who was presented to the emergency room on the day of admission with chest pain the patient was describing retrosternal pressure-like chest pain and had electrocardiographic evidence of subtle inferior current of injury. STEMI was activated and she was brought to the medical laboratory manager emergently by Dr. Hernandez performed emergency angiography and percutaneous revascularization of the RCA. According to the report the left coronary artery was not significantly disease. The right coronary artery was totally occluded and I believe 2 drug-eluting stents were deployed in the mid right coronary artery with ultimately a good angiographic anatomical result. The details of the procedure are the separately dictated catheterization report. Patient was kept in the hospital for 3 days following discharge with no significant problems. Because of some symptoms of lightheadedness and shortness of breath she was not discharged. She does have some exertional dyspnea that is still noticeable today it has been attributed to heal likely related to combination of her underlying COPD as well as Brilinta which she is taking as part of her dual anti-platelet therapy. Patient was started on modest dose of beta-claudio therapy a on the 2nd post [place] day she was not started on GHANSHYAM-inhibitor because of good left ventricular ejection fraction and low blood pressure. Today she appears to be essentially comfortable and appears to be a good candidate for discharge. Status at Discharge Functional status at discharge: independent ambulation Overall status at discharge: patient is back to baseline Time Spent with Patient Time attestation: Total time spent providing and/or coordinating discharge services: Time spent: Less than 30 minutes Exam Const: General: comfortable and no acute distress HENMT: Mouth: Yes moist mucous membranes Eyes: Sclera: sclerae normal Pupils: Equal, round and reactive pupils present Neck: Neck: supple and no JVD Thyroid: thyroid normal Resp: Effort & Inspection: normal respiratory effort Auscultation: clear to auscultation bilaterally Cardio: Rate: regular rate Rhythm: regular rhythm Other: No murmur no gallop no rub GI: GI Palp: Yes Soft to palpation Auscultation: normal bowel sounds Skin: General skin exam: normal color Neuro: Other: normal cognition Extrem: General: normal to inspection DS: Data Data Completed and Pending Labs on day of discharge: Labs from last 24 hours 11/26/19 11/26/19 04:58 04:58 WBC 9.7 RBC 3.91 L Hgb 11.4 L Hct 34.9 L MCV 89.3 MCH 29.2 MCHC 32.7 RDW 13.8 Plt Count 260 MPV 10.8 H Sodium 138 Potassium 3.7 Chloride 109 H Carbon Dioxide 23 Anion Gap 6 L BUN 9 Creatinine 0.70 Estim Creat Clear Calc 80 Estimated GFR > 60 Glucose 92 Calcium 8.3 L Discharge Plan Discharge Attending physician on discharge: Jordan Hernandez Consulting providers: Scooter Burk ; Cathy Grove ; Jere Onofre ; Ulises Benjamin ; Naveen Gant ; Jordan Hernandez Discharging Clinician: Dagoberto Corado Patient Disposition: Home, Self-Care Activity: no straining and other - see discharge instructions Diet: heart healthy Discharge Instructions: ACTIVITY: No driving until Thursday, November 30, 2019. This is for short distances only.No lifting, pushing or pulling more than 10 pounds for 1 week. No strenuous exercise or activity until you are released to do so. May start gentle walking program in 1 week. May shower but no tub baths or swimming pool for 1 week. Avoid commercial hot tubs. They are too hot. Avoid the heat of the day. DO NOT STOP YOUR MEDICATIONS! ONLY YOUR REAMING MACHINE TENDER CAN STOP THE FOLLOWING MEDICATIONS: Aspirin Brilinta Atorvastatin
== END 2019-11-26 16:55 | disposition home or self-care (01) | DRG 247 ==
LOC: ANHED 15:26 → ANHICU 21:53 → ANHIMU 11-25 03:31 → ANH2MED 11-26 14:52 → ANHICU 11-28 12:09 → ANHIMU 11-28 12:09
PROVIDERS: Internal Medicine; Internal Medicine Cardiovascular Disease; Admitting Provider Internal Medicine Cardiovascular Disease; Emergency Provider Emergency Medicine; PCP Family Medicine Adolescent Medicine; Visit Provider Specialist
PROC: 4A023N7 Measurement of Cardiac Sampling and Pressure, Left Heart, Percutaneous Approach (ICD-10-PCS; CPT 93452; principal; 2019-11-23 15:20)
PROC: 027035Z Dilation of Coronary Artery, One Artery with Two Drug-eluting Intraluminal Devices, Percutaneous Approach (ICD-10-PCS; 2019-11-23 15:20)
PROC: 027035Z Dilation of Coronary Artery, One Artery with Two Drug-eluting Intraluminal Devices, Percutaneous Approach (ICD-10-PCS; 2019-11-23 15:20)
DX: I21.3 ST elevation (STEMI) myocardial infarction of unspecified site (principal); J44.9 Chronic obstructive pulmonary disease, unspecified; M19.90 Unspecified osteoarthritis, unspecified site; I95.9 Hypotension, unspecified; E66.9 Obesity, unspecified; Z68.38 Body mass index [BMI] 38.0-38.9, adult; Z87.891 Personal history of nicotine dependence; Z90.710 Acquired absence of both cervix and uterus
CPT/HCPCS: 36415; 71045; 80048; 80076; 83605; 83690; 83735; 84100; 84484; 85025; 85027; 85610; 85730; 93005; 93458; 94640; 99291; A9270; C1725; C1760; C1769; C1874; C1887; C1894; C8929; C9606; G0269; J0583; J1644; J2250; J2405; J3010; J7030; J7040; J7050; Q9957

== ENCOUNTER 2019-12-09 10:22 | Outpatient (CLI) | payer MEDICARE, SELFPAY ==
--- NOTE | ~2019-12-09 | XR_ITS ---
EXAMINATION: XR chest 2V DATE: 12/09/2019 10:45 INDICATION: Dyspnea on exertion. TECHNIQUE: Frontal and lateral views of the chest were obtained. COMPARISON: Chest single view 11/24/2019 FINDINGS: The chest demonstrates clear lungs without pneumonia, pleural effusion, or pneumothorax. Th e heart size is normal. IMPRESSION: 1. No acute cardiopulmonary disease. Reviewed, dictated and finalized at location A.
[2019-12-09 12:20] LABS: Troponin I < 0.012 ng/mL (0.000-0.034)
== END 2019-12-09 10:23 | disposition home or self-care (01) ==
LOC: ANHIMG 10:32
PROVIDERS: PCP Family Medicine Adolescent Medicine; Visit Provider Nurse Practitioner Adult Health
DX: R06.00 Dyspnea, unspecified (principal)
CPT/HCPCS: 36415; 71046; 84484

== ENCOUNTER 2019-12-15 10:11 | Outpatient (CLI) | payer MEDICARE, SELFPAY ==
[2019-12-15 11:38] LABS: NT Pro B Type Natriuretic Pept 188 PG/ML (5-100)
== END 2019-12-15 10:12 | disposition home or self-care (01) ==
PROVIDERS: PCP Family Medicine Adolescent Medicine; Visit Provider Nurse Practitioner Adult Health
DX: R06.00 Dyspnea, unspecified (principal)
CPT/HCPCS: 36415; 83880

== ENCOUNTER 2019-12-16 16:53 | Outpatient (CLI) | payer MEDICARE, SELFPAY ==
--- NOTE | ~2019-12-16 | CT_ITS ---
EXAMINATION: CTA chest PE protocol DATE: 12/16/2019 17:45 INDICATION: Shortness of breath. Cough. Dyspnea on exertion. TECHNIQUE: Computed tomography (CT) pulmonary angiogram of the chest was performed with 100 mL Omnipa que-350 intravenous contrast. Additional 3D reconstructions utilizing coronal maximum intensity proje ction (MIP) were performed. Automated exposure control and iterative reconstruction technique were em ployed. The dose-length product was 815.37 mGy-cm. COMPARISON: 11/15/2019 and 11/01/2018 FINDINGS: Excellent contrast opacification of the pulmonary arteries. There is mild streak artifact from dense contrast in the superior vena cava and right atrium. Mild scattered respiratory motion artifact does not significantly limit evaluation. No pulmonary embolism. Mild emphysema. Unchanged 4 mm nodule in t he right lower lobe. No pneumonia, pulmonary edema, pleural effusion or pneumothorax. Heart size is n ormal. Atherosclerotic coronary artery calcification. No pericardial effusion. Thoracic aorta is norm al in caliber with no dissection. No pathologically enlarged thoracic lymphadenopathy. Visualized upp er abdomen is unremarkable. Mild thoracic spondylosis. IMPRESSION: 1. No pulmonary embolism or other acute cardiopulmonary disease. 2. Mild emphysema. Reviewed, dictated and finalized at location A.
[2019-12-16 17:35] LABS: Estimated Glomerular Filt Rate > 60
[2019-12-16 18:30] LABS: D Dimer 0.46 ug/mL (<0.48)
== END 2019-12-16 16:54 | disposition home or self-care (01) ==
PROVIDERS: PCP Family Medicine Adolescent Medicine; Visit Provider Nurse Practitioner Adult Health
DX: R06.00 Dyspnea, unspecified (principal); J43.9 Emphysema, unspecified
CPT/HCPCS: 36415; 71275; 85380; Q9967

== ENCOUNTER 2020-02-08 11:03 | Outpatient (CLI) | payer MEDICARE, SELFPAY ==
[2020-02-08 11:40] LABS: Basophils Absolute Auto 0.1 K/mm3 (0.0-0.1); Basophils Percent Auto 0.6 % (0.2-1.2); Eosinophils Absolute Auto 0.3 K/mm3 (0-0.3); Eosinophils Percent Auto 2.7 % (0-4.4); Hematocrit 40.9 % (37.0-47.0); Hemoglobin 13.5 g/dL (12.0-15.0); Immature Granulocyte Absolute 0.04 K/mm3 (0.00-0.031); Immature Granulocyte Percent A 0.4 % (0-0.5); Lymphocytes Percent Auto 25.3 % (18.3-44.2); Mean Corpuscular Hemoglobin 29.5 pg (26-34); Mean Corpuscular Volume 89.5 fl (80-100); Mean Platelet Volume 10.2 fl (7.4-10.4); Monocytes Absolute Auto 0.6 K/mm3 (0.1-0.6); Monocytes Percent Auto 5.3 % (2.6-8.5); Neutrophils Absolute Auto 7.3 K/mm3 (1.3-6.7); Neutrophils Percent Auto 65.7 % (45.5-73.1); Platelet Count Result 369 k/mm3 (150-375); Red Blood Count 4.57 M/mm3 (4.2-5.4); Red Cell Distribution Width 14.4 % (11.5-14.5); White Blood Count 11.1 K/mm3 (4.5-10.0)
[2020-02-08 11:55] LABS: Alanine Aminotransferase 42 U/L (4-35); Albumin Level 4.1 g/dL (3.5-5.1); Alkaline Phosphatase 105 U/L (38-126); Anion Gap 9 mmol/L (8-16); Aspartate Amino Transferase 54 U/L (14-36); Bilirubin,Total 0.7 mg/dL (0.2-1.3); Blood Urea Nitrogen 13 mg/dL (7-17); Calcium 9.7 mg/dL (8.4-10.2); Carbon Dioxide 28 mmol/L (22-30); Chloride 103 mmol/L (98-107); Estimated Glomerular Filt Rate > 60; Glucose 132 mg/dL (65-105); Sodium 140 mmol/L (137-145)
[2020-02-08 12:02] LABS: Potassium 4.6 mmol/L (3.4-5.0)
== END 2020-02-08 11:04 | disposition home or self-care (01) ==
LOC: ANHLAB 11:05
PROVIDERS: PCP Family Medicine Adolescent Medicine; Visit Provider Internal Medicine Cardiovascular Disease
DX: I25.2 Old myocardial infarction (principal)
CPT/HCPCS: 36415; 80053; 85025

== ENCOUNTER 2020-03-18 11:57 | Emergency (ER) | payer MEDICARE, SELFPAY ==
--- NOTE | ~2020-03-18 | XR_ITS ---
EXAMINATION: XR chest 1V portable DATE: 03/18/2020 12:54 INDICATION: Shortness of breath and mid chest pressure TECHNIQUE: frontal view of the chest was obtained. COMPARISON: Chest radiograph dated 12/09/[address] dated 12/16/2019 FINDINGS: Mild hyperexpansion of lungs consistent with mild emphysema but appreciated on prior CT . No focal ai rspace opacities, pulmonary edema, pleural effusion or pneumothorax. Cardiomediastinal silhouette is normal with small bilateral paracardial fat pads. IMPRESSION: 1. Mild emphysema. No acute cardiopulmonary disease. Reviewed, dictated and finalized at location A. EDGE PAINTER
--- NOTE | 2020-03-18 11:59 | ECG_ITS ---
Measurements Intervals [place] Rate: 92 P: 76 SC: 164 QRS: 54 QRSD: 82 T: 65 QT: 334 QTc: 414 Interpretive Statements SINUS RHYTHM POSSIBLE LEFT ATRIAL ENLARGEMENT BORDERLINE ST-T WAVE ABNORMALITY- DIFFUSE LEADS BORDERLINE ECG Electronically Signed On 03-18-2020 12:27:37 DATA PROCESSING AUDITOR by Naveen Gant D.O.
[2020-03-18 12:06] VITALS: BP 132/74; PULSE 87; RESP 20; TEMP 36.5; O2SAT 96
--- NOTE | 2020-03-18 12:21 | ED.CHESTPAIN ---
HPI - Chest Pain General Chief Complaint: Chest Pain Stated Complaint: chest pressure Time Seen by Provider: 03/18/20 12:17 Source: patient History of Present Illness HPI narrative: Patient is 64 years old white female presents with chest pressure, retrosternal for the last 5 days, constant. Patient denies any fever, chills, nausea, vomiting, shortness of breath, sore throat, headache, back pain. History of 2 coronary stents 4 months ago. Patient denies any aggravating factors. Patient report that the pain gets better with walking. Patient's daughter was tested positive for Covid yesterday. Last time were together on March 09 and the daughter had headache at that time. MD complaint: chest pain Related Data Home Medications Medication Instructions Recorded Confirmed ascorbic acid (vit C) 1,000 1,000 mg PO DAILY 02/04/19 02/06/20 mg-multivitamin with minerals no.18 tablet aspirin 81 mg tablet,delayed 81 mg PO DAILY 02/04/19 02/06/20 release albuterol sulfate 90 mcg INHALATION QID PRN 11/23/19 02/06/20 clopidogrel 75 mg tablet 75 mg PO DAILY 12/21/19 02/06/20 docusate sodium [Colace] mg PO 01/16/20 02/06/20 magnesium PO 01/16/20 02/06/20 Allergies Allergy/AdvReac Type Severity Reaction Status Date / Time CILANTRO Allergy Vomiting Verified 03/18/20 13:34 Review of Systems Review of Systems: Narrative: CONSTITUTIONAL: Denies fever, chills, or sweats. EYES: Denies visual changes, redness, or discharge. ENT: Denies rhinorrhea, congestion, sore throat, or otalgia. CARDIOVASCULAR: Denies chest pain, palpitations, or edema. RESPIRATORY: Denies cough or dyspnea. GASTROINTESTINAL: Denies abdominal pain, nausea, vomiting, or diarrhea. GENITOURINARY: Denies dysuria or hematuria. SKIN: Denies rash or itching. MUSCULOSKELETAL: Denies back pain, joint pain, or myalgia. NEUROLOGIC: Denies headache, numbness, or weakness. PSYCHIATRIC: Denies anxiety or depression. [facility] Past Medical History Medical History (Updated 03/18/20 @ 15:10 by Henrry Light MD) COPD (chronic obstructive pulmonary disease) Inflammatory arthritis Muscle cramps (~12/2018) RT lower extremity Surgical History Surgical History H/O: hysterectomy Family History Family History Mother Lung cancer Grandparent COPD (chronic obstructive pulmonary disease) Father Acute myocardial infarction Lung cancer Grandparent Congestive heart failure Social History Social History Smoking packs per day: 2 Smoking cigarettes per day: 40.0 Years smoked: 40 Smoking pack-years: 80.00 Smoking status: Current every day smoker Tobacco type: cigarettes Alcohol intake: never Substance use: never Spiritual care concerns: No Exam Narrative: Exam Narrative: General appearance: Well-developed, well-nourished Skin: Normal color Head: Normocephalic, nontraumatic Eyes: Clear conjunctiva ENT: Oropharynx normal, ears normal, nose normal Neck: Supple, nontender Chest and respiratory: Airway patent, no respiratory distress, no accessory muscle use Heart: Regular rate/rhythm Abdomen: Soft, nontender, no organomegaly, quiet bowel sounds Vascular: Normal peripheral pulses, normal capillary refill. Musculoskeletal: Normal range of motion, nontender back Neurologic: Alert and oriented ?3, MEASUREMENT SUPERINTENDENT is normal as tested, no gross motor deficit Course Course Emergency Course: Stable Consultations Consultation #1: Dr. Burk. Patient can go home and follow-up with her family physician as outpatient. Date: 03/18/20 Time:
[2020-03-18 12:29] VITALS: PULSE 91
[2020-03-18 12:37] LABS: Basophils Absolute Auto 0.1 K/mm3 (0.0-0.1); Basophils Percent Auto 0.7 % (0.2-1.2); Eosinophils Absolute Auto 0.3 K/mm3 (0-0.3); Eosinophils Percent Auto 2.7 % (0-4.4); Hematocrit 41.9 % (37.0-47.0); Hemoglobin 13.6 g/dL (12.0-15.0); Immature Granulocyte Absolute 0.03 K/mm3 (0.00-0.031); Immature Granulocyte Percent A 0.3 % (0-0.5); Lymphocytes Absolute Auto 2.95 K/mm3 (0.9-3.2); Lymphocytes Percent Auto 29.3 % (18.3-44.2); Mean Corpuscular HGB Conc 32.5 g/dl (32-36); Mean Corpuscular Hemoglobin 28.8 pg (26-34); Mean Corpuscular Volume 88.6 fl (80-100); Mean Platelet Volume 10.3 fl (7.4-10.4); Monocytes Absolute Auto 0.5 K/mm3 (0.1-0.6); Monocytes Percent Auto 4.8 % (2.6-8.5); Neutrophils Absolute Auto 6.3 K/mm3 (1.3-6.7); Neutrophils Percent Auto 62.2 % (45.5-73.1); Platelet Count Result 351 k/mm3 (150-375); Red Blood Count 4.73 M/mm3 (4.2-5.4); Red Cell Distribution Width 13.7 % (11.5-14.5); White Blood Count 10.1 K/mm3 (4.5-10.0)
[2020-03-18 12:46] LABS: INR 0.9; Prothrombin Time 13.1 Seconds (11.1-14.7)
[2020-03-18 12:47] LABS: Partial Thromboplastin Time 24.9 SECONDS (22.3-36.8)
[2020-03-18 12:48] LABS: Alanine Aminotransferase 37 U/L (4-35); Albumin Level 4.2 g/dL (3.5-5.1); Alkaline Phosphatase 102 U/L (38-126); Anion Gap 12 mmol/L (8-16); Aspartate Amino Transferase 50 U/L (14-36); Bilirubin,Total 0.5 mg/dL (0.2-1.3); Blood Urea Nitrogen 13 mg/dL (7-17); Calcium 9.7 mg/dL (8.4-10.2); Carbon Dioxide 24 mmol/L (22-30); Chloride 103 mmol/L (98-107); Estimated CRCL calculation 57 ml/min; Estimated Glomerular Filt Rate 56; Glucose 162 mg/dL (65-105); Potassium 4.2 mmol/L (3.4-5.0); Sodium 139 mmol/L (137-145)
[2020-03-18 12:49] LABS: D Dimer 0.34 ug/mL (<0.48)
[2020-03-18 13:00] LABS: NT Pro B Type Natriuretic Pept 51 PG/ML (5-100); Troponin I < 0.012 ng/mL (0.000-0.034)
[2020-03-18 13:09] VITALS: BP 130/70; PULSE 86; RESP 19; O2SAT 98
[2020-03-18] MEDS: ASPIRIN 81 MG CHEWABLE TABLET 324 MG PO (13:10)
[2020-03-18 14:20] VITALS: BP 122/72; PULSE 79; RESP 16; O2SAT 95
[2020-03-18 14:34] LABS: D Dimer 0.39 ug/mL (<0.48)
[2020-03-18 15:00] VITALS: BP 113/69; PULSE 77; RESP 17; O2SAT 95
[2020-03-18 15:26] VITALS: BP 116/57; PULSE 80; RESP 18; O2SAT 98
[2020-03-18 15:44] LABS: Troponin I < 0.012 ng/mL (0.000-0.034)
[2020-03-19 18:50] LABS: SARS-CoV-2 RNA PCR Negative
== END 2020-03-18 15:35 | disposition home or self-care (01) ==
PROVIDERS: Emergency Provider Emergency Medicine; PCP Family Medicine Adolescent Medicine
DX: R07.89 Other chest pain (principal); Z20.822 Contact with and (suspected) exposure to COVID-19; J43.9 Emphysema, unspecified; M19.90 Unspecified osteoarthritis, unspecified site; Z95.5 Presence of coronary angioplasty implant and graft; Z79.82 Long term (current) use of aspirin; F17.210 Nicotine dependence, cigarettes, uncomplicated; R94.31 Abnormal electrocardiogram [ECG] [EKG]
CPT/HCPCS: 36415; 71045; 80053; 83880; 84484; 85025; 85380; 85610; 85730; 93005; 99284; A9270; C9803; U0003

== ENCOUNTER 2020-03-20 18:59 | Emergency (ER) | payer MEDICARE, SELFPAY ==
[2020-03-20 19:04] VITALS: BP 172/72; PULSE 86; RESP 18; O2SAT 98
--- NOTE | 2020-03-20 19:32 | ED.GENADULT ---
HPI - General Adult General Chief complaint: Chest Pain <Javi Cook PA-C - Last Filed: 03/20/20 20:05> Stated complaint: HTN <Javi Cook PA-C - Last Filed: 03/20/20 20:05> Time Seen by Provider: 03/20/20 19:10 <Javi Cook PA-C - Last Filed: 03/20/20 20:05> Source: patient <Javi Cook PA-C - Last Filed: 03/20/20 20:05> Mode of arrival: ambulatory <DEMETRIS Sanders Last Filed: 03/20/20 20:05> Limitations: no limitations <DEMETRIS Sanders Last Filed: 03/20/20 20:05> History of Present Illness HPI narrative: Patient presents with chief complaint of elevated blood pressure reading while at home. Patient states that she noticed that her blood pressure was 168/86 and she was not sure if she was supposed to take her 0.1 mg clonidine as it was prescribed to her prior to having her 2 stents placed 4 months ago. Patient states she is not here for chest pain as her retrosternal pain has actually improved and has been worked up by her conference center manager as well as the emergency department on 03-18-2020. Patient denies any diaphoresis, fever, chills, nausea, vomiting, diarrhea, shortness of breath, syncope or any other emergent symptoms. <DEMETRIS Sanders Last Filed: 03/20/20 20:05> Related Data Home medications: Home Medications Medication Instructions Recorded Confirmed ascorbic acid (vit C) 1,000 1,000 mg PO DAILY 02/04/19 02/06/20 mg-multivitamin with minerals no.18 tablet aspirin 81 mg tablet,delayed 81 mg PO DAILY 02/04/19 02/06/20 release albuterol sulfate 90 mcg INHALATION QID PRN 11/23/19 02/06/20 clopidogrel 75 mg tablet 75 mg PO DAILY 12/21/19 02/06/20 docusate sodium [Colace] mg PO 01/16/20 02/06/20 magnesium PO 01/16/20 02/06/20 <Javi Cook PA-C - Last Filed: 03/20/20 20:05> Allergies/adverse reactions: Allergies Allergy/AdvReac Type Severity Reaction Status Date / Time CILANTRO Allergy Vomiting Verified 03/18/20 13:34 <Javi Cook PA-C - Last Filed: 03/20/20 20:05> Review of Systems Review of Systems: Narrative: CONSTITUTIONAL: Denies fever, chills, or sweats. EYES: Denies visual changes, redness, or discharge. ENT: Denies rhinorrhea, congestion, sore throat, or otalgia. CARDIOVASCULAR: Denies chest pain, palpitations, or edema. RESPIRATORY: Denies cough or dyspnea. GASTROINTESTINAL: Denies abdominal pain, nausea, vomiting, or diarrhea. GENITOURINARY: Denies dysuria or hematuria. SKIN: Denies rash or itching. MUSCULOSKELETAL: Denies back pain, myalgia, or joint pain NEUROLOGIC: Denies headache, numbness, dizziness, or weakness. PSYCHIATRIC: Denies anxiety or depression. <Javi Cook PA-C - Last Filed: 03/20/20 20:05> [facility] Past Medical History Medical History: Medical History (Updated 03/20/20 @ 19:56 by Javi Cook PA-C) COPD (chronic obstructive pulmonary disease) Inflammatory arthritis Muscle cramps (~12/2018) RT lower extremity <Javi Cook PA-C - Last Filed: 03/20/20 20:05> Surgical History Surgical History: Surgical History H/O: hysterectomy <Javi Cook PA-C - Last Filed: 03/20/20 20:05> Family History Family History: Family History Mother Lung cancer Grandparent COPD (chronic obstructive pulmonary disease) Father Acute myocardial infarction Lung cancer Grandparent Congestive heart failure <Javi Cook PA-C - Last Filed: 03/20/20 20:05> Social History Social History: Social History Smoking packs per day: 2 Smoking cigarettes per day: 40.0 Years smoked: 40 Smoking pack-years: 80.00 Smoking status: Current every day smoker Tobacco type: cigarettes Alcohol intake: never Substance use: never Gender identity (if verbalized by the patient): Female Spiritual care demarcus
--- NOTE | 2020-03-20 19:36 | ECG_ITS ---
Measurements Intervals [place] Rate: 82 P: 82 SC: 170 QRS: 52 QRSD: 90 T: 40 QT: 359 QTc: 422 Interpretive Statements SINUS RHYTHM NONSPECIFIC ST & T-WAVE ABNORMALITY- INF/LAT LEADS BASELINE ARTIFACT- AVR, AVL, V1 BORDERLINE ECG Electronically Signed On 03-20-2020 20:31:52 PRESS BREAKER by Naveen Gant D.O.
[2020-03-20 19:50] VITALS: BP 136/71; PULSE 82; RESP 18; O2SAT 98
== END 2020-03-20 20:13 | disposition home or self-care (01) ==
PROVIDERS: Emergency Provider General Practice; PCP Family Medicine Adolescent Medicine
DX: R03.0 Elevated blood-pressure reading, without diagnosis of hypertension (principal); J44.9 Chronic obstructive pulmonary disease, unspecified; M19.90 Unspecified osteoarthritis, unspecified site
CPT/HCPCS: 93005; 99283

== ENCOUNTER 2020-04-12 16:30 | Outpatient (RCR) | payer MEDICARE, SELFPAY ==
[2020-01-16 12:24] VITALS: PULSE 78
--- NOTE | 2020-01-25 15:19 | PCCPR ---
Addendum entered by Vicky Velez RN 01/30/20 09:42: Elaina called with an update she is still on antibiotics for a couple of more days. She still has a cough and runny nose. Encouraged her to hold off for a couple more days to see if the symptoms go away. Original Note: Absent-per patient MD diagnosed her with a sinus infection. She is on antibiotics. She states her MD did not think she needed to be COVID tested but we asked that she be symptom free for alteast 24 hours before she returns as COVID symptoms are very broad.
--- NOTE | 2020-02-02 14:42 | PCCPR ---
Amy Delaney called states she had a in her family hopes to return on Thursday.
--- NOTE | 2020-02-07 16:08 | PCCPR ---
Pt called and LM, plans to suspend CR until she is approved for FA. Attempted to call patient back; will move her to a hold status until she plans to return.
--- NOTE | 2020-03-06 15:19 | PCCPR ---
called to check on FA brendon status. Pt states she turned everything in, but has not heard back. Emailed Tianna Soliz for update on status of FA.
--- NOTE | 2020-03-07 10:52 | PCCPR ---
Spoke to Tianna Soliz Pt has completed the FA brendon and it is under review. Review could take up to 6 weeks. Updated pt on status.
== END 2020-04-12 23:59 | disposition home or self-care (01) ==
LOC: ANHCPREHAB 16:30
PROVIDERS: PCP Family Medicine Adolescent Medicine; Visit Provider Nurse Practitioner Adult Health
DX: Z95.5 Presence of coronary angioplasty implant and graft (principal); I25.2 Old myocardial infarction
CPT/HCPCS: 93798; 97150; G0424

== ENCOUNTER 2020-04-13 09:06 | Outpatient (CLI) | payer MEDICARE, SELFPAY ==
--- NOTE | 2020-04-15 13:43 | WPDSIXMINUTE ---
Six Minute Walk Six Minute Walk: The patients O2 sats started at 96% and dropped as low as 91% Total walk distance 335.28 meters conclusion: This patient does not qualify for home oxygen therapy.
== END 2020-04-13 09:07 | disposition home or self-care (01) ==
PROVIDERS: PCP Family Medicine Adolescent Medicine; Visit Provider Nurse Practitioner Family
DX: R06.02 Shortness of breath (principal)
CPT/HCPCS: 94618

== ENCOUNTER 2020-04-16 14:54 | Outpatient (RCR) | payer MEDICARE, SELFPAY ==
--- NOTE | 2020-04-25 14:29 | PCCPR ---
Absent-weather is affecting her breathing/COPD
--- NOTE | 2020-04-30 13:20 | PCCPR ---
Absent today due to inclement weather.
--- NOTE | 2020-05-03 14:37 | PCCPR ---
Absent due to not feeling well Elaina called LM with our Coordinator she received a flu shot yesterday and has a runny nose .
--- NOTE | 2020-05-14 15:39 | PCCPR ---
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
--- NOTE | 2020-05-17 14:28 | PCCPR ---
Pt cxl today due to having an apt during class time.
--- NOTE | 2020-05-30 14:17 | PCCPR ---
Heather called today, she received her covid vaccine yesterday and is not feeling well. She will be absent today and tomorrow.
--- NOTE | 2020-06-14 17:09 | PCCPR ---
Absent-no call/no show all week (06/11-06/14). Left patient a message to check in.
--- NOTE | 2020-06-21 15:14 | PCCPR ---
Absent- called & spoke to Brenda and stated she is SOB. Brenda encouraged her to call her MD.
== END 2020-07-12 17:10 | disposition home or self-care (01) ==
LOC: ANHCPREHAB 14:54
PROVIDERS: PCP Family Medicine Adolescent Medicine; Visit Provider Nurse Practitioner Adult Health
DX: Z95.5 Presence of coronary angioplasty implant and graft (principal)
CPT/HCPCS: 99199

== ENCOUNTER 2020-07-12 14:10 | Outpatient (CLI) | payer MEDICARE, SELFPAY ==
--- NOTE | ~2020-07-12 | XR_ITS ---
EXAMINATION: XR chest 2V 07/12/2020 14:54 INDICATION: Chronic obstructive pulmonary disease PROCEDURE: 2 view chest COMPARISON: No prior studies for comparison. FINDINGS: The lungs are clear. The cardiomediastinal silhouette is within normal limits. There are no pleural effusions. There is no pneumothorax suspected. IMPRESSION: 1: NO ACUTE CARDIOPULMONARY DISEASE. Reviewed, dictated and finalized at location B.
--- NOTE | ~2020-07-12 | MM_ITS ---
EXAMINATION: MM screening chris BI w claire HISTORY: Screening mammogram TECHNIQUE: Craniocaudal and mediolateral oblique 3-D tomosynthesis images were obtained and synthetic 2-D images were generated. CAD analysis was submitted and interpreted. COMPARISON: 07/05/2018, 07/02/2017, 01/24/2015 bilateral digital screening mammogram examinations BREAST PARENCHYMAL COMPOSITION: The breasts are almost entirely fatty. FINDINGS: There is no evidence of suspicious mass, calcification, or architectural distortion to sugg est malignancy in either breast. There has been no suspicious interval change. IMPRESSION: 1. No mammographic evidence of malignancy. 2. Recommend routine screening mammography in one year. BI-RADS Category 1: Negative Reviewed, dictated and finalized at location A.
== END 2020-07-12 14:11 | disposition home or self-care (01) ==
PROVIDERS: PCP Family Medicine Adolescent Medicine; Referring Provider Internal Medicine Critical Care Medicine; Visit Provider Family Medicine Adolescent Medicine
DX: Z12.31 Encounter for screening mammogram for malignant neoplasm of breast (principal); J44.9 Chronic obstructive pulmonary disease, unspecified; R06.02 Shortness of breath
CPT/HCPCS: 71046; 77063; 77067

== ENCOUNTER 2020-11-28 20:22 | Emergency (ER) | payer MEDICARE, SELFPAY ==
--- NOTE | ~2020-11-28 | XR_ITS ---
XR chest 1V portable DATE: 11/28/2020 23:14 INDICATION: Dyspnea and viral symptoms for 3 days TECHNIQUE: Portable AP chest on 11/26/2020 at 2311 hours COMPARISON: 07/12/2020 2 view chest FINDINGS: Heart size is normal. Aortic arch calcification. No hilar or mediastinal enlargement. No pulmonary infiltrate or consolidation, pleural effusion or pulmonary vascular congestion or pneumo thorax. IMPRESSION: No active cardiopulmonary disease Reviewed, dictated and finalized at location A.
--- NOTE | ~2020-11-28 | CT_ITS ---
EXAMINATION: CTA chest PE protocol DATE: 11/29/2020 01:33 INDICATION: Elevated d-dimer, upper respiratory infection TECHNIQUE: Computed tomography angiography (CTA) of the chest was performed with 100 mL Omnipaque-350 intravenous contrast timed to evaluate the pulmonary arteries. Coronal maximum intensity projection 3D-reconstructions were created by the technologist. The dose-length product (DLP) was 928.97 mGy-cm. Automated exposure control and iterative reconstruction technique were employed. COMPARISON: 12/16/2019 FINDINGS: Respiratory motion artifact somewhat limits the examination. The pulmonary arteries are wel l-opacified. No pulmonary embolism is identified. There is moderate emphysema. There is a new 6 mm no dule of the right upper lobe on image 48. A 4 mm nodule of the right lower lobe on image 64 previousl y measured 3 mm. There is a mildly enlarged right axillary lymph node. The heart size is normal. Ther e is no pleural effusion or pneumothorax. There is moderate thoracic spondylosis. IMPRESSION: 1. No pulmonary embolism identified, sensitivity limited by respiratory motion artifact. 2. Right lung nodules which may be infectious or inflammatory. Follow-up CT in 3-6 months is recommen ded. 3. Mildly enlarged right axillary lymph node, possibly reactive. Recommend correlation for recent COV ID vaccination in the right arm which can cause transient lymphadenopathy. Attention on follow-up exa mination is recommended. Reviewed, dictated and finalized at location A. IMPRESSION: 1. No pulmonary embolism identified, sensitivity limited by respiratory motion artifact. 2. Right lung nodules which may be infectious or inflammatory. Follow-up CT in 3-6 months is recommended. 3. Mildly enlarged right axillary lymph node, possibly reactive. Recommend marshall elation for recent COVID vaccination in the right arm which can cause transient lymphadenopathy. Attention on follow-up examination is recommended.
[2020-11-28 20:26] VITALS: BP 202/88; PULSE 102; RESP 20; TEMP 37.1; O2SAT 98
--- NOTE | 2020-11-28 20:30 | ECG_ITS ---
Measurements Intervals [place] Rate: 76 P: 62 VA: 156 QRS: 46 QRSD: 92 T: 26 QT: 386 QTc: 436 Interpretive Statements SINUS RHYTHM CANNOT RULE OUT SEPTAL INFARCT, AGE INDETERMINATE ABNORMAL ECG Electronically Signed On 11-29-2020 7:52:48 CDT by Naveen Gant D.O.
--- NOTE | 2020-11-28 23:01 | ED.URI ---
HPI - URI/Sore Throat General Chief Complaint: Upper Respiratory Infection Stated Complaint: SOB, COVID SYMPTOMS SINCE THURSDAY Time Seen by Provider: 11/28/20 23:01 Source: patient Mode of arrival: ambulatory Limitations: no limitations History of Present Illness HPI Narrative: Patient is a 65-year-old female with a history of COPD, coronary artery disease, myocardial infarction in 2019, who presents for evaluation of fever, cough, shortness of breath. Patient states she has been feeling unwell over the past 5 days. Initially started with rhinorrhea, nasal congestion, progressed to vomiting and diarrhea Thursday, now with a cough and shortness of breath. SHe reports muscle pain 'all over. 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 She is vaccinated with the Moderna vaccine. She reports fever of 100 Fahrenheit, chills, myalgias. She reports mild headache. No recent known sick contacts. Related Data Home Medications Medication Instructions Recorded Confirmed ascorbic acid (vit C) 1,000 1,000 mg PO DAILY 02/04/19 04/26/20 mg-multivitamin with minerals no.18 tablet aspirin 81 mg tablet,delayed 81 mg PO DAILY 02/04/19 04/26/20 release albuterol sulfate 90 mcg INHALATION QID PRN 11/23/19 04/26/20 clopidogrel 75 mg tablet 75 mg PO DAILY 12/21/19 04/26/20 docusate sodium [Colace] 100 mg PO DAILY 01/16/20 04/26/20 magnesium 500 mg PO DAILY 01/16/20 04/26/20 fluticasone furoate-vilanterol 1 inh INHALATION DAILY 04/26/20 04/26/20 [Breo Ellipta] metoprolol tartrate 25 mg PO Q12HR 04/26/20 04/26/20 Allergies Allergy/AdvReac Type Severity Reaction Status Date / Time CILANTRO Allergy Vomiting Verified 11/15/20 11:48 Review of Systems Review of Systems: CONSTITUTIONAL: Reports fever and chills EYES: Denies visual changes, redness, or discharge. ENT: Reports rhinorrhea, congestion CARDIOVASCULAR: Reports mild chest achiness without palpitations or edema RESPIRATORY: Reports cough and shortness of breath GASTROINTESTINAL: Denies current abdominal pain, nausea, vomiting, or diarrhea. GENITOURINARY: Denies dysuria or hematuria. SKIN: Denies rash or itching. MUSCULOSKELETAL: Denies back pain, joint pain, reports diffuse myalgias NEUROLOGIC: Reports headache without numbness, or weakness. [facility] Past Medical History Medical History COPD (chronic obstructive pulmonary disease) Inflammatory arthritis Muscle cramps (~12/2018) RT lower extremity Obstructive sleep apnea Shortness of Breath SOB (shortness of breath) Surgical History Surgical History H/O: hysterectomy Family History Family History Mother Lung cancer Grandparent COPD (chronic obstructive pulmonary disease) Father Acute myocardial infarction Lung cancer Grandparent Congestive heart failure Social History Social History Social History: Quit 2016 Smoking packs per day: 2 Smoking cigarettes per day: 40.0 Years smoked: 40 Smoking pack-years: 80.00 Smoking status: Never smoker Tobacco type: cigarettes Alcohol intake: never Substance use: never Gender identity (if verbalized by the patient): Female Spiritual care concerns: No Exam Narrative: GENERAL: Awake, alert, conversant, fatigued appearing HEAD: Normocephalic, atraumatic. EYES: PERRLA and EOMI. ENT: Nares clear, no rhinorrhea or epistaxis. Mucous membranes moist. NECK: Supple. CHEST: No respiratory distress, breathing even and non labored, lungs are clear to auscultation bilaterally without wheezing, rales, no rhonchi HEART: Tachycardic, sinus rhythm ABDOMEN:Non distended, non tender EXTREMITIES: Normal range of motion. No edema. SKIN: Warm, dry, no rash. NEURO:No focal deficits. Alert and oriented x3
[2020-11-28] MEDS: ACETAMINOPHEN 500 MG TABLET 1000 MG PO (23:46)
[2020-11-28] MEDS: IBUPROFEN 400 MG TABLET PO (23:47)
[2020-11-28] MEDS: SODIUM CHLORIDE 0.9% IV 1,000 ML 999 ML IV CONT (23:55)
[2020-11-29 00:27] LABS: Basophils Percent Auto 0.6 % (0.2-1.2); Eosinophils Absolute Auto 0.1 K/mm3 (0-0.3); Eosinophils Percent Auto 1.4 % (0-4.4); Hematocrit 40.9 % (37.0-47.0); Immature Granulocyte Absolute 0.03 K/mm3 (0.00-0.031); Immature Granulocyte Percent A 0.4 % (0-0.5); Lymphocytes Absolute Auto 1.81 K/mm3 (0.9-3.2); Lymphocytes Percent Auto 25.9 % (18.3-44.2); Mean Corpuscular HGB Conc 31.8 g/dl (32-36); Mean Corpuscular Hemoglobin 28.9 pg (26-34); Mean Corpuscular Volume 90.9 fl (80-100); Mean Platelet Volume 10.6 fl (7.4-10.4); Monocytes Absolute Auto 0.6 K/mm3 (0.1-0.6); Monocytes Percent Auto 8.6 % (2.6-8.5); Neutrophils Absolute Auto 4.4 K/mm3 (1.3-6.7); Neutrophils Percent Auto 63.1 % (45.5-73.1); Platelet Count Result 321 k/mm3 (150-375); Red Cell Distribution Width 15.4 % (11.5-14.5)
[2020-11-29 00:29] VITALS: O2SAT 95
[2020-11-29 00:39] LABS: Alanine Aminotransferase 21 U/L (4-35); Albumin Level 4.1 g/dL (3.5-5.1); Alkaline Phosphatase 102 U/L (38-126); Anion Gap 11 mmol/L (8-16); Aspartate Amino Transferase 27 U/L (14-36); Bilirubin,Total 0.7 mg/dL (0.2-1.3); Blood Urea Nitrogen 12 mg/dL (7-17); Calcium 9.2 mg/dL (8.4-10.2); Carbon Dioxide 25 mmol/L (22-30); Chloride 106 mmol/L (98-107); Estimated CRCL calculation 66 ml/min; Estimated Glomerular Filt Rate > 60; Glucose 101 mg/dL (65-110); Potassium 3.8 mmol/L (3.4-5.0); Sodium 142 mmol/L (137-145)
[2020-11-29 00:50] LABS: D Dimer 0.54 ug/mL (<0.48)
[2020-11-29 00:51] LABS: Troponin I 0.019 ng/mL (0.000-0.034)
[2020-11-29 02:06] LABS: Troponin I 0.018 ng/mL (0.000-0.034)
[2020-11-29 02:21] VITALS: BP 142/70; PULSE 77; RESP 14; O2SAT 94
[2020-11-29 02:53] VITALS: BP 153/72; PULSE 73; RESP 14; O2SAT 94
[2020-11-29 19:52] LABS: SARS-CoV-2 RNA PCR Negative
== END 2020-11-29 02:52 | disposition home or self-care (01) ==
PROVIDERS: Emergency Provider Emergency Medicine; PCP Family Medicine Adolescent Medicine
DX: J06.9 Acute upper respiratory infection, unspecified (principal); J44.9 Chronic obstructive pulmonary disease, unspecified; Z20.822 Contact with and (suspected) exposure to COVID-19; I25.10 Atherosclerotic heart disease of native coronary artery without angina pectoris; I25.2 Old myocardial infarction; G47.33 Obstructive sleep apnea (adult) (pediatric); M19.90 Unspecified osteoarthritis, unspecified site; Z79.82 Long term (current) use of aspirin; R94.31 Abnormal electrocardiogram [ECG] [EKG]; R91.8 Other nonspecific abnormal finding of lung field
CPT/HCPCS: 36415; 71045; 71275; 80053; 84484; 85025; 85380; 93005; 96360; 99284; A9270; C9803; J7030; Q9967; U0003; U0005

== ENCOUNTER 2020-12-12 10:27 | Outpatient (CLI) | payer MEDICARE, SELFPAY ==
--- NOTE | ~2020-12-12 | XR_ITS ---
EXAMINATION: XR chest 2V 12/12/2020 11:07 INDICATION: Shortness of breath PROCEDURE: 2 View chest COMPARISON: Comparison to multiple prior studies sequentially, with oldest reviewed study dated 12/08. FINDINGS: The lungs are clear. The cardiomediastinal silhouette is within normal limits. There are no pleural effusions. There is no pneumothorax suspected. IMPRESSION: 1: NO ACUTE CARDIOPULMONARY DISEASE. Reviewed, dictated and finalized at location A.
--- NOTE | ~2020-12-12 | NM_ITS ---
EXAMINATION: NM pulmonary perfusion DATE: 12/12/2020 11:29 INDICATION: Shortness of breath TECHNIQUE: 5.5 mCi Tc-99m MAA by intravenous route. Scintigraphic images of the chest were obtained. COMPARISON: Chest radiograph dated 12/12/2020 FINDINGS: There is relatively homogeneous perfusion throughout the lungs. No discrete perfusion defects identi fied. IMPRESSION: 1. Low probability for pulmonary embolism. Reviewed, dictated and finalized at location A.
== END 2020-12-12 10:28 | disposition home or self-care (01) ==
PROVIDERS: PCP Family Medicine Adolescent Medicine; Visit Provider Internal Medicine Critical Care Medicine
DX: R06.02 Shortness of breath (principal)
CPT/HCPCS: 71046; 78580; A9540

== ENCOUNTER 2020-12-16 16:47 | Emergency (ER) | payer MEDICARE, SELFPAY ==
[2020-12-16] VITALS (16 sets, daily range): BP systolic 104–149; BP diastolic 71–75; PULSE 87–130; RESP 15–27; TEMP 37.6–38.5; O2SAT 94–99
--- NOTE | ~2020-12-16 | XR_ITS ---
EXAMINATION: XR chest 2V DATE: 12/16/2020 17:23 INDICATION: Shortness of breath, fever and chills TECHNIQUE: AP and lateral views of the chest are obtained. COMPARISON: 12/12/2020 FINDINGS: Airspace opacities have developed in the left upper lobe. There is no pleural effusion or p neumothorax. The cardiomediastinal silhouette is normal. There is mild thoracic spondylosis. IMPRESSION: 1. New airspace opacities of the left upper lobe, consistent with pneumonia. Reviewed, dictated and finalized at location A.
--- NOTE | 2020-12-16 16:54 | ECG_ITS ---
Measurements Intervals [place] Rate: 119 P: 73 [place]: 208 QRS: 53 QRSD: 81 T: 63 QT: 296 QTc: 417 Interpretive Statements SINUS TACHYCARDIA POSSIBLE LEFT ATRIAL ENLARGEMENT DELAYED PRECORDIAL R/S TRANSITION BORDERLINE ST-T WAVE ABNORMALITY- INFERIOR LEADS BASELINE ARTIFACT- V5 ABNORMAL ECG Electronically Signed On 12-16-2020 19:47:17 CDT by Naveen Gant D.O.
[2020-12-16 17:03] LABS: Basophils Absolute Auto 0.1 K/mm3 (0.0-0.1); Basophils Percent Auto 0.3 % (0.2-1.2); Eosinophils Absolute Auto 0.1 K/mm3 (0-0.3); Eosinophils Percent Auto 0.3 % (0-4.4); Hemoglobin 12.4 g/dL (12.0-15.0); Immature Granulocyte Absolute 0.09 K/mm3 (0.00-0.031); Immature Granulocyte Percent A 0.5 % (0-0.5); Lymphocytes Absolute Auto 1.38 K/mm3 (0.9-3.2); Mean Corpuscular HGB Conc 32.6 g/dl (32-36); Mean Corpuscular Hemoglobin 29.1 pg (26-34); Mean Corpuscular Volume 89.2 fl (80-100); Monocytes Absolute Auto 1.5 K/mm3 (0.1-0.6); Monocytes Percent Auto 7.7 % (2.6-8.5); Neutrophils Absolute Auto 16.7 K/mm3 (1.3-6.7); Neutrophils Percent Auto 84.2 % (45.5-73.1); Platelet Count Result 323 k/mm3 (150-375); Red Blood Count 4.26 M/mm3 (4.2-5.4); Red Cell Distribution Width 15.4 % (11.5-14.5); White Blood Count 19.8 K/mm3 (4.5-10.0)
[2020-12-16 17:12] LABS: Anion Gap 11 mmol/L (8-16); Blood Urea Nitrogen 9 mg/dL (7-17); Calcium 8.9 mg/dL (8.4-10.2); Carbon Dioxide 21 mmol/L (22-30); Chloride 103 mmol/L (98-107); Estimated CRCL calculation 61 ml/min; Estimated Glomerular Filt Rate > 60; Glucose 152 mg/dL (65-110); Potassium 4.1 mmol/L (3.4-5.0); Sodium 135 mmol/L (137-145)
[2020-12-16 17:24] LABS: Troponin I < 0.012 ng/mL (0.000-0.034)
--- NOTE | 2020-12-16 18:02 | ED.SOB ---
HPI - SOB/Dyspnea General Chief Complaint: Shortness of Breath/Dyspnea Stated Complaint: difficulty breathing/fever Time Seen by Provider: 12/16/20 17:22 Source: patient Mode of arrival: ambulatory Limitations: no limitations History of Present Illness HPI Narrative: 65-year-old female with history of COPD, CAD and NH in 2019 arrives complaining of fever, and productive cough. For the last 2 days, or since this morning. Patient called her primary doctor who started her on Levaquin for presumed pneumonia. Patient denies chest pain, denies wheezing, she is not currently on prednisone and she is not out of any of her medications. Patient had Covid vaccination x2 and no history of Covid diagnosis. Patient arrives febrile and tachycardic speaking full sentences without difficulty. Shortness of breath worse with exertion, improves with rest. Not worse with lying flat. 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 MD elicited complaint: shortness of breath and cough Pertinent past history: COPD, pneumonia and other (CAD) Onset (ago): day(s) (2) Related Data Home Medications Medication Instructions Recorded Confirmed ascorbic acid (vit C) 1,000 1,000 mg PO DAILY 02/04/19 04/26/20 mg-multivitamin with minerals no.18 tablet aspirin 81 mg tablet,delayed 81 mg PO DAILY 02/04/19 04/26/20 release albuterol sulfate 90 mcg INHALATION QID PRN 11/23/19 04/26/20 clopidogrel 75 mg tablet 75 mg PO DAILY 12/21/19 04/26/20 docusate sodium [Colace] 100 mg PO DAILY 01/16/20 04/26/20 magnesium 500 mg PO DAILY 01/16/20 04/26/20 fluticasone furoate-vilanterol 1 inh INHALATION DAILY 04/26/20 04/26/20 [Breo Ellipta] metoprolol tartrate 25 mg PO Q12HR 04/26/20 04/26/20 levofloxacin 500 mg 12/16/20 Allergies Allergy/AdvReac Type Severity Reaction Status Date / Time CILANTRO Allergy Vomiting Verified 12/16/20 18:09 Review of Systems Review of Systems: CONSTITUTIONAL: positive for fever, no weight loss, no confusion EYES: no vision changes, no eye pain ENT: no rhinorrhea, no sore throat, no difficulty swallowing CARDIOVASCULAR: no chest pain, no leg edema, no palpitations RESPIRATORY: positive for cough, positive for shortness of breath, no hemoptysis GASTROINTESTINAL: no abdominal pain, no nausea, no vomiting, no diarrhea GENITOURINARY: no flank pain, no dysuria, no hematuria SKIN: no rash, no jaundice MUSCULOSKELETAL: no back pain, no trauma NEUROLOGIC: No headache, no dizziness, no focal weakness PSYCHIATRIC: No hallucinations, no suicidal ideation PMFSH Past Medical History Medical History COPD (chronic obstructive pulmonary disease) Inflammatory arthritis Muscle cramps (~12/2018) RT lower extremity Obstructive sleep apnea Shortness of Breath SOB (shortness of breath) Surgical History Surgical History H/O: hysterectomy Family History Family History Mother Lung cancer Grandparent COPD (chronic obstructive pulmonary disease) Father Acute myocardial infarction Lung cancer Grandparent Congestive heart failure Social History Social History Social History: Quit 2016 Smoking packs per day: 2 Smoking cigarettes per day: 40.0 Years smoked: 40 Smoking pack-years: 80.00 Smoking status: Never smoker Tobacco type: cigarettes Alcohol intake: never Substance use: never Gender identity (if verbalized by the patient): Female Spiritual care concerns: No Exam Narrative: General: alert, febrile, answering all questions appropriately Head: normocephalic, atraumatic Eyes: EOMI bilaterally, anicteric, no injection ENT: moist mucous membranes, oropharynx patent, no rhinorrhea Neck: supple, trachea midline, no JVD Chest: equal chest rise bilaterally, no chest wall trauma no
[2020-12-16] MEDS: ACETAMINOPHEN 500 MG TABLET 1000 MG PO (18:08)
[2020-12-16] MEDS: LACTATED RINGERS 1,000 ML 999 ML IV CONT (18:08)
[2020-12-16 18:30] LABS: Lactic Acid Reflex 1.5 mmol/L (0.7-2.1)
[2020-12-16 18:41] LABS: Troponin I < 0.012 ng/mL (0.000-0.034)
[2020-12-16 18:44] LABS: INR 1.1; Prothrombin Time 13.9 Seconds (11.1-14.7)
[2020-12-16 18:45] LABS: Partial Thromboplastin Time 28.2 SECONDS (22.3-36.8)
[2020-12-16] MEDS: ONDANSETRON INJ 4 MG/2 ML VIAL IV PUSH (18:56)
== END 2020-12-16 21:33 | disposition home or self-care (01) ==
PROVIDERS: Emergency Medicine; Emergency Provider Emergency Medicine; PCP Family Medicine Adolescent Medicine
DX: J18.9 Pneumonia, unspecified organism (principal); I25.10 Atherosclerotic heart disease of native coronary artery without angina pectoris; J44.9 Chronic obstructive pulmonary disease, unspecified; I25.2 Old myocardial infarction; M19.90 Unspecified osteoarthritis, unspecified site; G47.33 Obstructive sleep apnea (adult) (pediatric); Z87.891 Personal history of nicotine dependence; R00.0 Tachycardia, unspecified; R94.31 Abnormal electrocardiogram [ECG] [EKG]; Z79.82 Long term (current) use of aspirin; R06.02 Shortness of breath
CPT/HCPCS: 36415; 71046; 80048; 83605; 84484; 85025; 85610; 85730; 87040; 93005; 96365; 96367; 96375; 99284; A9270; J0456; J0696; J2405; J7120

== ENCOUNTER 2021-01-19 14:09 | Emergency (ER) | payer MEDICARE, SELFPAY ==
--- NOTE | ~2021-01-19 | US_ITS ---
US venous doppler [facility] DATE: 01/19/2021 15:31 INDICATION: Swelling of lower extremities TECHNIQUE: Real-time and color flow imaging and Doppler analysis of the veins of the lower examinatio ns COMPARISON: None FINDINGS: There is spontaneous and phasic flow and normal augmentation and color flow signal and norm al compression of the deep veins of the lower extremities. The greater saphenous veins are patent. IMPRESSION: Negative examination; no evidence of deep venous thrombosis of the lower extremities Reviewed, dictated and finalized at Location A. Reviewed, dictated and finalized at location A.
--- NOTE | ~2021-01-19 | XR_ITS ---
XR chest 2V DATE: 01/19/2021 15:36 INDICATION: Lower extremity edema. COPD. Hypertension. History of microinfarction. TECHNIQUE: AP and lateral views COMPARISON: 12/16/2020 AP and lateral chest FINDINGS: There is minimal residual infiltrate or atelectasis in the left mid lung, improved since . The lungs are moderately hyperinflated but otherwise clear of infiltrate or consolidation. No pleural effusion or pulmonary vascular congestion or pneumothorax is detected. Normal heart size. Aortic arch calcification. Diffuse osteopenia. IMPRESSION: Minimal residual infiltrate, atelectasis or scarring in the left midlung, left upper lobe Reviewed, dictated and finalized at location A. IMPRESSION: Minimal residual infiltrate, atelectasis or scarring in the left mi dlung, left upper lobe
[2021-01-19 14:18] VITALS: BP 133/76; PULSE 77; RESP 18; TEMP 36.6; O2SAT 96
--- NOTE | 2021-01-19 14:46 | ED.LOWEXIN ---
HPI - Extremity Injury (Lower) General Chief Complaint: Extremity Injury, Lower Stated Complaint: leg swelling, pain Time Seen by Provider: 01/19/21 14:28 Source: patient Mode of arrival: ambulatory Limitations: no limitations History of Present Illness HPI Narrative: This is a 65 year old female that presents to the ER for lower extremity myalgias. Ongoing over the last week. Also reports swelling to the lower extremities. Denies fever, chest pain, shortness of breath, erythema, or recent travel or surgery. Related Data Home Medications Medication Instructions Recorded Confirmed ascorbic acid (vit C) 1,000 1,000 mg PO DAILY 02/04/19 04/26/20 mg-multivitamin with minerals no.18 tablet aspirin 81 mg tablet,delayed 81 mg PO DAILY 02/04/19 04/26/20 release albuterol sulfate 90 mcg INHALATION QID PRN 11/23/19 04/26/20 clopidogrel 75 mg tablet 75 mg PO DAILY 12/21/19 04/26/20 docusate sodium [Colace] 100 mg PO DAILY 01/16/20 04/26/20 magnesium 500 mg PO DAILY 01/16/20 04/26/20 fluticasone furoate-vilanterol 1 inh INHALATION DAILY 04/26/20 04/26/20 [Breo Ellipta] metoprolol tartrate 25 mg PO Q12HR 04/26/20 04/26/20 levofloxacin 500 mg 12/16/20 Allergies Allergy/AdvReac Type Severity Reaction Status Date / Time CILANTRO Allergy Vomiting Verified 12/16/20 18:09 nitroglycerin AdvReac Hypotension Verified 01/19/21 14:26 Review of Systems Review of Systems: CONSTITUTIONAL: Denies fever CARDIOVASCULAR: Reports edema. Denies chest pain RESPIRATORY: Denies dyspnea. MUSCULOSKELETAL: Reports myalgia. NEUROLOGIC: Denies numbness All systems reviewed & are unremarkable except as noted in HPI and below PMFSH Past Medical History Medical History COPD (chronic obstructive pulmonary disease) Inflammatory arthritis Muscle cramps (~12/2018) RT lower extremity Obstructive sleep apnea Shortness of Breath SOB (shortness of breath) Surgical History Surgical History H/O: hysterectomy Family History Family History Mother Lung cancer Grandparent COPD (chronic obstructive pulmonary disease) Father Acute myocardial infarction Lung cancer Grandparent Congestive heart failure Social History Social History Social History: Quit 2016 Smoking packs per day: 2 Smoking cigarettes per day: 40.0 Years smoked: 40 Smoking pack-years: 80.00 Smoking status: Never smoker Tobacco type: cigarettes Alcohol intake: never Substance use: never Gender identity (if verbalized by the patient): Female Spiritual care concerns: No Exam Narrative: GENERAL: Well-appearing, well-nourished, and in no acute distress. HEAD: Normocephalic, atraumatic. EYES: EOMI. CHEST: Clear to auscultation. No respiratory distress. No wheezes rales or rhonchi HEART: Regular rate and rhythm. No murmur heard. Normal peripheral pulses. EXTREMITIES: Normal range of motion. No edema or erythema. Normal DP pulses. Normal sensation. Tender to palpation of the calf musculature bilaterally. Compartments are soft. SKIN: Warm, dry, no rash. NEURO: No focal deficits. Alert and oriented x3. PSYCH: Normal mood and affect Course Consultations Consultation #1: Spoke with Dr. Murillo about patient and work-up. Agrees with trial of stopping atorvastatin to see if this is causing her myalgias. She is to follow-up in clinic. Date: 01/19/21 Time: 16:34 Vital Signs Vital signs: Vital Signs Temperature 97.9 F 01/19/21 14:18 Pulse Rate 77 01/19/21 14:18 Respiratory Rate 18 01/19/21 14:18 Blood Pressure 133/76 01/19/21 14:18 Pulse Oximetry 96 01/19/21 14:18 Temperature 97.9 F 01/19/21 14:18 Pulse Rate 77 01/19/21 14:18 Respiratory Rate 18 01/19/21 14:18 Blood Pressure 133/76 01/19/21 14
[2021-01-19] MEDS: HYDROcodone/acetaminophen (*CRX) 5-325 MG TABLET 1 TAB PO (14:57)
[2021-01-19 15:09] LABS: Add Urine Microscopic? YES; Appearance Urine Cloudy (Clear); Bilirubin Urine Negative (Negative); Blood Urine Negative (Negative); Color Urine Yellow (Yellow); Glucose Urine UA Negative (Negative); Ketones Urine Negative (Negative); Leukocyte Esterase Ur Negative LEU/UL (Negative); Mucus Urine Rare /lpf; Nitrate Urine Negative (Negative); Protein Urine Negative (Negative); Specific Grav Ur 1.016 (1.001-1.035); Squamous Epithelial Cell Urine Few /hpf (Few); WBC Urine 0-3 /hpf
[2021-01-19 15:15] LABS: Basophils Absolute Auto 0.1 K/mm3 (0.0-0.1); Basophils Percent Auto 0.7 % (0.2-1.2); Eosinophils Absolute Auto 0.2 K/mm3 (0-0.3); Eosinophils Percent Auto 1.6 % (0-4.4); Hematocrit 39.3 % (37.0-47.0); Hemoglobin 12.5 g/dL (12.0-15.0); Immature Granulocyte Absolute 0.03 K/mm3 (0.00-0.031); Immature Granulocyte Percent A 0.2 % (0-0.5); Lymphocytes Percent Auto 23.3 % (18.3-44.2); Mean Corpuscular HGB Conc 31.8 g/dl (32-36); Mean Corpuscular Hemoglobin 28.9 pg (26-34); Mean Corpuscular Volume 90.8 fl (80-100); Mean Platelet Volume 10.2 fl (7.4-10.4); Monocytes Absolute Auto 0.7 K/mm3 (0.1-0.6); Monocytes Percent Auto 6.1 % (2.6-8.5); Neutrophils Absolute Auto 8.2 K/mm3 (1.3-6.7); Neutrophils Percent Auto 68.1 % (45.5-73.1); Platelet Count Result 325 k/mm3 (150-375); Red Blood Count 4.33 M/mm3 (4.2-5.4); Red Cell Distribution Width 14.9 % (11.5-14.5)
[2021-01-19 15:25] LABS: Partial Thromboplastin Time 24.8 SECONDS (22.3-36.8); Prothrombin Time 13.1 Seconds (11.1-14.7)
[2021-01-19 15:30] LABS: Alanine Aminotransferase 21 U/L (4-35); Albumin Level 4.2 g/dL (3.5-5.1); Alkaline Phosphatase 99 U/L (38-126); Anion Gap 9 mmol/L (8-16); Aspartate Amino Transferase 26 U/L (14-36); Bilirubin,Total 0.7 mg/dL (0.2-1.3); Blood Urea Nitrogen 14 mg/dL (7-17); Calcium 9.6 mg/dL (8.4-10.2); Carbon Dioxide 28 mmol/L (22-30); Chloride 105 mmol/L (98-107); Creatine Kinase 39 U/L (30-135); Estimated CRCL calculation 56 ml/min; Estimated Glomerular Filt Rate 55; Glucose 95 mg/dL (65-110); Magnesium 1.8 mg/dL (1.6-2.3); Potassium 3.9 mmol/L (3.4-5.0); Sodium 142 mmol/L (137-145)
[2021-01-19 15:54] LABS: NT Pro B Type Natriuretic Pept 179 pg/mL (5-100)
== END 2021-01-19 16:42 | disposition home or self-care (01) ==
PROVIDERS: Physician Assistant; Emergency Provider Emergency Medicine; PCP Family Medicine Adolescent Medicine
DX: M79.10 Myalgia, unspecified site (principal); J44.9 Chronic obstructive pulmonary disease, unspecified; G47.33 Obstructive sleep apnea (adult) (pediatric); Z87.891 Personal history of nicotine dependence; M79.89 Other specified soft tissue disorders; Z79.82 Long term (current) use of aspirin
CPT/HCPCS: 36415; 71046; 80053; 81001; 82550; 83735; 83880; 85025; 85610; 85730; 93970; 99284; A9270

== ENCOUNTER 2021-02-18 10:14 | Outpatient (CLI) | payer MEDICARE, SELFPAY ==
--- NOTE | ~2021-02-18 | CT_ITS ---
EXAMINATION: CT diagnostic chest wo con DATE: 02/18/2021 10:32 INDICATION: Solitary pulmonary nodule TECHNIQUE: Computed tomography (CT) of the chest was performed without intravenous contrast. The dose -length product (DLP) was 191.44 mGy-cm. Automated exposure control and iterative reconstruction tech nique were employed. COMPARISON: 11/29/2020, 12/16/2019 FINDINGS: An 8 mm nodule of the right upper lobe persists and demonstrates slight increase in size (i mage 48). There is a stable 4 mm nodule of the right lower lobe. There is mild atelectasis of the yesica gula. Mild emphysema is noted. The previously described mildly enlarged right axillary lymph node is no longer identified. No pathologically enlarged thoracic lymph nodes are present. The heart size is normal. There is calcified coronary artery atherosclerosis. There is moderate thoracic spondylosis. IMPRESSION: 1. Right upper lobe nodule with slight increase in size. CT-guided biopsy is recommended. Reviewed, dictated and finalized at location A. EED MEAT PRESSER IMPRESSION: 1. Right upper lobe nodule with slight increase in size. CT-guided biopsy is re commended.
== END 2021-02-18 10:15 | disposition home or self-care (01) ==
LOC: ANHIMG 10:17
PROVIDERS: PCP Family Medicine Adolescent Medicine; Visit Provider Nurse Practitioner Family
DX: R91.1 Solitary pulmonary nodule (principal); I25.10 Atherosclerotic heart disease of native coronary artery without angina pectoris
CPT/HCPCS: 71250

== ENCOUNTER 2021-03-04 08:36 | Outpatient (CLI) | payer MEDICARE, SELFPAY ==
[2021-02-22 12:08] VITALS: BMI 34.3
--- NOTE | 2021-02-22 12:23 | PC.NURSE ---
Report to the Outpatient Waiting Room, entrance under the green pavilion located off [facility], at time 0900 on date 03/04/21. OR Time: 1100. - You and your visitor will be asked a series of questions to screen for COVID 19 for your protection. - A mask is required within the hospital. - Only one visitor is allowed at this time. Patient visitors will be guided where to wait when not with patient. Preoperative COVID Testing Requirements: No COVID Test needed if: (proof is required; if not received patient will have Rapid Test prior to entry) - Patient has received COVID Vaccine at least 14 days prior to procedure date or - Patient has positive COVID test result within last 90 days of surgery date. COVID Test needed if above criteria is not met If not COVID vaccinated a COVID test must be conducted within 72 hours of surgery and patient is asked to isolate self from time of testing until procedure. You will go to the [facility] for your COVID testing. The [facility] site is located at the corner of [address] [facility]. You will only be called if COVID results are positive and your surgeon may reschedule your elective surgery date. - No food OR DRINK FOR 6 HOURS PRIOR TO PROCEDURE Take the following medications with a SIP of water the morning of surgery: INHALERS IF NEEDED Medications to discontinue per physician: ASPIRIN 7 DAYS PRIOR TO PROCEDURE, PLAVIX 5 DAYS PRIOR TO PROCEDURE Please no make-up, nail serbian, hairspray, perfume, deodorant, or body powder the day of surgery. No jewelry (including any body piercings) or valuables the day of surgery, leave them at home. Please take a shower or bath the night before, or the morning of, surgery with an antibacterial soap. Wear comfortable, loose fitting clothing. Children are encouraged to wear pajamas. - Jewelry must be removed prior to entering the operating room. Rings and piercings that are not removed may be cut off. - The hospital will not accept responsibility for valuables. - Please leave all valuables, including medications, at home the day of surgery. If you are going home after surgery, a licensed ready mix truck driver must drive you home. - NO public transportation without another adult. - We recommend that an adult stay with you for 24 hours following discharge. - We also recommend that you do not drive, make important decision, drink alcoholic beverages, or take any drugs that were not prescribed by your health care provider for at least 24 hours after your discharge time. Follow any additional instructions given to you from your surgeon. Telephone instructions given to BLANCA CHURCHILL and asked if any additional questions and then verbalized understanding. Patient advised to call surgeon office or pre surgery nurse liaison [phone] if any additional questions.
[2021-03-04] VITALS (10 sets, daily range): BP systolic 116–148; BP diastolic 64–80; PULSE 72–82; RESP 16–18; TEMP 36.2; O2SAT 97–100
--- NOTE | ~2021-03-04 | XR_ITS ---
EXAMINATION: XR chest 1V DATE: 03/04/2021 10:44 INDICATION: Right lung nodule status post percutaneous biopsy. TECHNIQUE: A single frontal view of the chest was obtained. COMPARISON: Chest 2 views 01/19/2021 FINDINGS: There is a nodule in right lung upper lobe. No pleural effusion or pneumothorax. The heart size is normal. IMPRESSION: 1. Nodule in right lung upper lobe, consistent with postbiopsy hemorrhage. Reviewed, dictated and finalized at location A. OWS SERVER ADMINISTRATOR
--- NOTE | ~2021-03-04 | CT_ITS ---
EXAMINATION: CT biopsy lung w/imaging DATE: 03/04/2021 10:41 INDICATION: Solitary pulmonary nodule. TECHNIQUE: The procedure including the risks, benefits, and alternatives and possibility of chest tub e placement were discussed with the patient. Risks discussed included infection, approximately 1/20 r isk of symptomatic hemorrhage beyond mild hemoptysis, approximately 1/3 risk of pneumothorax, approxi mately 1/10 risk of pneumothorax severe enough to warrant chest tube placement, and rarely . The patient understood the risks and agreed to proceed. The patient was placed supine. The skin overlyi ng the right lung was prepped and draped in sterile fashion. Anesthetic was administered with 1% lid ocaine subcutaneously. A 19 gauge outer needle was advanced under CT guidance to the lesion of inter est. A 20 gauge core biopsy needle was then used to obtain 3 core biopsy specimens. The needle was re moved and the entry site was cleaned and dressed. The mA was adjusted according to patient size. Iter ative reconstruction technique was employed. The dose-length product was 171.57 mGy-cm. There were n o immediate complications. FINDINGS: CT images demonstrate the outer needle tip adjacent to a 9 mm nodule in right upper lobe. IMPRESSION: 1. CT-guided core needle biopsy of a 9 mm nodule in right lung upper lobe. Reviewed, dictated and finalized at location A. PLATE PLYWOOD PRESS FEEDER
--- NOTE | ~2021-03-04 | XR_ITS ---
EXAMINATION: XR chest 1V portable DATE: 03/04/2021 13:53 INDICATION: Right lung nodule status post percutaneous biopsy. TECHNIQUE: A single frontal view of the chest was obtained. COMPARISON: Chest single view at 11:36 AM FINDINGS: There is a nodule in right upper lobe. No pleural effusion or pneumothorax. The heart size is normal. IMPRESSION: 1. Stable nodule in right lung upper lobe, consistent post biopsy hemorrhage. Reviewed, dictated and finalized at location A. S BUCKER
--- NOTE | ~2021-03-04 | XR_ITS ---
XR chest 1V portable 03/04/2021 11:44 Indication: Post image guided biopsy Procedure: AP portable chest Comparison: Comparison to multiple prior studies sequentially, with oldest reviewed study dated 08/2020. Findings: Stable right upper lobe nodule. Heart size normal. No acute focal pneumonia, edema or pneum othorax. No significant pleural effusion. Impression: 1: No pneumothorax identified post biopsy right upper lobe nodule. Reviewed, dictated and finalized at location A. RVISOR VENEER Impression: 1: No pneumothorax identified post biopsy right upper lobe nodule.
--- NOTE | 2021-03-04 13:18 | SUR.PHASEII ---
1310- Patient called this RN into room and complaining of pain to middle of chest and back. Notified Dr. Ibrahim of patient's complaints and he will evaluate at bedside. 1318- Dr. Ibrahim at bedside and evaluating patient. Vitals are stable at this time. He said OK for patient to change positions in stretcher for what is more comfortable and to see how the patient's next scheduled chest x-ray looks at 1340.
--- NOTE | 2021-03-04 13:54 | SUR.PHASEII ---
1354- Notified Dr. Ibrahim patient's 3 hour chest x-ray complete at this time. Per Dr. Ibrahim imaging looks good and patient is OK for discharge home.
== END 2021-03-04 13:59 | disposition home or self-care (01) ==
PROVIDERS: Radiology Diagnostic Radiology; PCP Family Medicine Adolescent Medicine; Visit Provider Internal Medicine Critical Care Medicine
PROC: BB24ZZZ Computerized Tomography (CT Scan) of Bilateral Lungs (ICD-10-PCS; CPT 32408; principal; 2021-03-04 11:00)
DX: R91.1 Solitary pulmonary nodule (principal); C34.11 Malignant neoplasm of upper lobe, right bronchus or lung
CPT/HCPCS: 32408; 71045; 88305; 88342

== ENCOUNTER 2021-07-22 15:15 | Outpatient (CLI) | payer MEDICARE, SELFPAY ==
--- NOTE | ~2021-07-22 | US_ITS ---
EXAMINATION: US venous doppler [facility] DATE: 07/22/2021 16:06 INDICATION: Right lower limb pain TECHNIQUE: Grayscale ultrasound images without and with compression and Doppler ultrasound images of the bilateral lower extremity veins were obtained. COMPARISON: None. FINDINGS: The visualized portions of right common femoral vein, profunda (deep) femoral vein, femoral vein, pop liteal vein, posterior tibial veins, peroneal veins, gastrocnemius vein, lesser saphenous vein and gr eater saphenous vein outflow are patent. The visualized portions of left common femoral vein, profunda femoral vein, femoral vein, popliteal v ein, posterior tibial veins, peroneal veins, gastrocnemius vein, lesser saphenous vein and greater sa phenous vein outflow are patent. IMPRESSION: 1. No deep venous thrombosis in either lower limb. Reviewed, dictated and finalized at location A.
== END 2021-07-22 15:16 | disposition home or self-care (01) ==
LOC: ANHIMG 15:18
PROVIDERS: PCP Family Medicine Adolescent Medicine; Visit Provider Physician Assistant
DX: M79.661 Pain in right lower leg (principal); M79.662 Pain in left lower leg
CPT/HCPCS: 93970

== ENCOUNTER 2021-07-27 08:28 | Outpatient (CLI) | payer MEDICARE, SELFPAY ==
--- NOTE | ~2021-07-27 | MM_ITS ---
EXAMINATION: MM screening chris BI w claire HISTORY: Screening mammogram TECHNIQUE: Craniocaudal and mediolateral oblique 3-D tomosynthesis images were obtained and synthetic 2-D images were generated. CAD analysis was submitted and interpreted. COMPARISON: 07/12/2020, 07/05/2018, 07/02/2017 bilateral screening mammogram examinations BREAST PARENCHYMAL COMPOSITION: The breasts are almost entirely fatty.. FINDINGS: Benign stable calcification noted on the right. There is no evidence of suspicious mass, ca lcification, or architectural distortion to suggest malignancy in either breast. There has been no marcos spicious interval change. IMPRESSION: 1. No mammographic evidence of malignancy. 2. Recommend routine screening mammography in one year. BI-RADS Category 1: Negative Reviewed, dictated and finalized at location A.
== END 2021-07-27 08:29 | disposition home or self-care (01) ==
PROVIDERS: PCP Family Medicine Adolescent Medicine; Visit Provider Family Medicine Adolescent Medicine
DX: Z12.31 Encounter for screening mammogram for malignant neoplasm of breast (principal)
CPT/HCPCS: 77063; 77067

== ENCOUNTER 2021-09-11 18:18 | Emergency (ER) | payer MEDICARE, SELFPAY ==
--- NOTE | ~2021-09-11 | CT_ITS ---
EXAMINATION: CTA chest PE protocol DATE: 09/12/2021 07:33 CDT INDICATION: Chest heaviness. TECHNIQUE: Computed tomographic angiography (CTA) of the chest was performed with 100 mL Omnipaque-35 0 intravenous contrast. The dose-length product was 575.87 mGy-cm. Maximum intensity projection 3D-re constructions of the aorta and other arteries were constructed by the technologist on a separate work station. Automated exposure control and iterative reconstruction technique were employed. COMPARISON: CT dated 02/18/2021. FINDINGS: No significant change to 6 mm nodule right upper lobe there is a 5 mm nodule in the right l ower lobe, image 61, which may be slightly larger than on prior examination, although this could be r elated to partial volume averaging. No endobronchial lesions. There are groundglass opacities in the right upper lobe, suspicious for pneumonia. No endobronchial lesions. No pneumothorax. Study is techn ically adequate without evidence for pulmonary embolism. No significant pleural or pericardial effusi on. No thoracic lymphadenopathy. The upper abdomen is unremarkable. IMPRESSION: 1. Groundglass opacities right upper lobe with nodular configuration abutting the fissure, suspicious for pneumonia. 2: Right upper and lower lobe nodules. Right lower lobe nodule slightly increased in size compared wi th prior study, possibly related to technique. Follow-up low dose CT chest in 6 months recommended to assess stability of these nodules and the resolution of nodular consolidation in the right upper lob e. 3: No evidence for pulmonary embolism. Reviewed, dictated and finalized at location A. IMPRESSION: 1. Groundglass opacities right upper lobe with nodular configuration abutting t he fissure, suspicious for pneumonia. 2: Right upper and lower lobe nodules. Right lower lobe nodule slightly increas ed in size compared with prior study, possibly related to technique. Follow-up low dose CT chest in 6 months recommended to assess stability of these nodules and the resolution of nodular consolidation in the right upper lobe. 3: No evidence for pulmonary embolism.
--- NOTE | ~2021-09-11 | XR_ITS ---
EXAMINATION: XR chest 2V Exam Date/Time: 09/11/2021 18:40 CDT HISTORY: CP AND SOB, HX PR, 2 STENTS PLACED, COPD Comparison: 03/04/2021. RESULT: Lines, tubes, and devices: None. Lungs and pleura: Clear. Cardiomediastinal silhouette: Stable cardiomediastinal silhouette. Other: No acute osseous or upper abdominal finding. IMPRESSION: No acute cardiopulmonary process. Reviewed, dictated and finalized at location K.
--- NOTE | 2021-09-11 18:19 | ECG_ITS ---
Measurements Intervals [place] Rate: 82 P: 73 PA: 162 QRS: 57 QRSD: 91 T: 52 QT: 363 QTc: 426 Interpretive Statements SINUS RHYTHM COMPARED TO ECG 12/16/2020 17:04:44 SINUS RHYTHM NOW PRESENT Electronically Signed On 09-11-2021 22:51:31 CDT by Kezia Orta M.D.
[2021-09-11 18:21] VITALS: BP 153/71; PULSE 84; RESP 18; TEMP 36.7; O2SAT 98
[2021-09-11 18:51] LABS: Basophils Absolute Auto 0.1 K/mm3 (0.0-0.1); Basophils Percent Auto 0.6 % (0.2-1.2); Eosinophils Absolute Auto 0.2 K/mm3 (0-0.3); Eosinophils Percent Auto 1.7 % (0-4.4); Hemoglobin 13.4 g/dL (12.0-15.0); Immature Granulocyte Absolute 0.03 K/mm3 (0.00-0.031); Immature Granulocyte Percent A 0.2 % (0-0.5); Lymphocytes Absolute Auto 2.54 K/mm3 (0.9-3.2); Lymphocytes Percent Auto 20.2 % (18.3-44.2); Mean Corpuscular HGB Conc 31.9 g/dl (32-36); Mean Corpuscular Hemoglobin 28.2 pg (26-34); Mean Corpuscular Volume 88.4 fl (80-100); Monocytes Absolute Auto 0.6 K/mm3 (0.1-0.6); Monocytes Percent Auto 4.8 % (2.6-8.5); Neutrophils Absolute Auto 9.1 K/mm3 (1.3-6.7); Neutrophils Percent Auto 72.5 % (45.5-73.1); Platelet Count Result 317 k/mm3 (150-375); Red Blood Count 4.75 M/mm3 (4.2-5.4); Red Cell Distribution Width 14.1 % (11.5-14.5); White Blood Count 12.6 K/mm3 (4.5-10.0)
[2021-09-11 19:02] LABS: Prothrombin Time 13.1 Seconds (11.1-14.7)
[2021-09-11 19:03] LABS: Partial Thromboplastin Time 25.9 SECONDS (22.3-36.8)
[2021-09-11 19:05] LABS: Alanine Aminotransferase 23 U/L (6-35); Albumin Level 4.5 g/dL (3.5-5.1); Alkaline Phosphatase 99 U/L (38-126); Anion Gap 10 mmol/L (8-16); Aspartate Amino Transferase 32 U/L (14-36); Bilirubin,Total 0.5 mg/dL (0.2-1.3); Blood Urea Nitrogen 12 mg/dL (7-17); Calcium 9.6 mg/dL (8.4-10.2); Carbon Dioxide 28 mmol/L (22-30); Chloride 103 mmol/L (98-107); Estimated CRCL calculation 58 ml/min; Estimated Glomerular Filt Rate > 60; Glucose 118 mg/dL (65-110); Lipase 118 U/L (23-300); Sodium 141 mmol/L (137-145)
[2021-09-11 19:15] LABS: Troponin I < 0.012 ng/mL (0.000-0.034)
[2021-09-12 00:18] LABS: Troponin I < 0.012 ng/mL (0.000-0.034)
[2021-09-12 00:21] VITALS: BP 134/82; PULSE 79; RESP 18; O2SAT 100
[2021-09-12 00:24] VITALS: PULSE 80; O2SAT 100
--- NOTE | 2021-09-12 00:33 | ED.CHESTPAIN ---
HPI - Chest Pain General Chief Complaint: Chest Pain Stated Complaint: chest pain, dyspnea Time Seen by Provider: 09/12/21 00:21 History of Present Illness HPI narrative: 66-year-old female with history of coronary disease, hypertension presented to the emergency department for evaluation of of substernal chest pain and chest tightness since 5 PM. Patient states she was at rest when she had onset of the chest pain. Patient states she does not describe it as a pain but states it is more of a chest tightness. Patient did have an MS approximately 2 years ago and received 2 stents. Patient follows up with Dr. Saab. Patient also had lung cancer and had her last radiation therapy in May. Patient just received the information that she is cancer free. Related Data Home Medications Medication Instructions Recorded Confirmed aspirin 81 mg tablet,delayed 81 mg PO DAILY 02/04/19 07/22/21 release (Adult Aspirin Regimen) metoprolol tartrate 25 mg tablet 25 mg PO BID 07/22/21 07/22/21 multivitamin (Daily Multi-Vitamin 1 tablet PO DAILY 07/22/21 07/22/21 tablet) rosuvastatin 40 mg tablet 40 mg PO DAILY 07/22/21 07/22/21 Allergies Allergy/AdvReac Type Severity Reaction Status Date / Time CILANTRO Allergy Vomiting Verified 07/22/21 13:36 nitroglycerin AdvReac Hypotension Verified 07/22/21 13:36 Review of Systems Review of Systems: CONSTITUTIONAL: Denies fever, chills, or sweats. EYES: Denies visual changes, redness, or discharge. ENT: Denies rhinorrhea, congestion, sore throat, or otalgia. CARDIOVASCULAR: See HPI RESPIRATORY: Denies cough or dyspnea. GASTROINTESTINAL: Denies abdominal pain, nausea, vomiting, or diarrhea. GENITOURINARY: Denies dysuria or hematuria. SKIN: Denies rash or itching. MUSCULOSKELETAL: Denies back pain, joint pain, or myalgia. NEUROLOGIC: Denies headache, numbness, or weakness. [facility] Past Medical History Medical History COPD (chronic obstructive pulmonary disease) Inflammatory arthritis Muscle cramps (~12/2018) RT lower extremity Obstructive sleep apnea Shortness of Breath SOB (shortness of breath) Surgical History Surgical History H/O: hysterectomy Family History Family History Mother Lung cancer Grandparent COPD (chronic obstructive pulmonary disease) Father Acute myocardial infarction Lung cancer Grandparent Congestive heart failure Social History Social History (Updated 07/22/21 @ 13:45 by Bette Woods MA) Social History: Quit 2016 Smoking packs per day: 2 Smoking cigarettes per day: 40.0 Years smoked: 30 Smoking pack-years: 60.00 Smoking status: Former smoker Tobacco type: cigarettes Second hand tobacco smoke exposure: No Smoking end date: 03/16/16 Alcohol intake: never Substance use: never Substance use type: does not use Gender identity (if verbalized by the patient): Female Sexual Orientation (if Verbalized by the Patient): Straight or Heterosexual Spiritual care concerns: No Agree to blood products: Yes Exam Narrative: APPEARANCE: Well appearing, no pain, no distress, well-nourished. HEAD: normocephalic, atraumatic. EYES: PERRLA/EOMI, conjunctivae clear. NOSE: Normal no drainage THROAT: Pharynx clear, no exudate. NECK: Supple. No adenopathy, no masses. RESPIRATORY: Airway patent, respirations nonlabored. Clear to auscultation bilaterally, no rales, rhonchi, wheezing. CARDIOVASCULAR: Regular rate and rhythm without murmurs rubs or gallops. ABDOMINAL: Soft, nontender, nondistended, normal bowel sounds MUSCULOSKELETAL: Moves all extremities. Strength/ROM intact, No edema, No calf tenderness. NEURO: Alert. Cranial nerves II through XII intact. Grossly intact SKIN: Warm, dry. Normal Color Course Course Emergency Course: Patient will be treated with as
[2021-09-12] MEDS: ASPIRIN 81 MG CHEWABLE TABLET 324 MG PO (00:35)
[2021-09-12] MEDS: MORPHINE SULFATE (*CRX) 4 MG/ML INJ IV PUSH (01:17)
[2021-09-12 02:14] VITALS: BP 133/74; PULSE 70; RESP 18; O2SAT 94
[2021-09-12 02:24] LABS: SARS-CoV-2 RNA PCR Negative
[2021-09-12 03:37] VITALS: BP 134/70; PULSE 69; RESP 18; O2SAT 95
[2021-09-12 04:32] VITALS: BP 127/56; PULSE 75; RESP 18; O2SAT 96
[2021-09-12 05:08] VITALS: BP 127/56; PULSE 78; RESP 18; O2SAT 98
== END 2021-09-12 05:09 | disposition home or self-care (01) ==
PROVIDERS: Emergency Medicine; Emergency Provider Emergency Medicine; PCP Family Medicine Adolescent Medicine
DX: J18.9 Pneumonia, unspecified organism (principal); R09.1 Pleurisy; Z20.822 Contact with and (suspected) exposure to COVID-19; J44.9 Chronic obstructive pulmonary disease, unspecified; M19.90 Unspecified osteoarthritis, unspecified site; G47.30 Sleep apnea, unspecified
CPT/HCPCS: 36415; 71046; 71275; 80053; 83690; 84484; 85025; 85610; 85730; 93005; 96365; 96375; 99284; A9270; C9803; J0456; J2270; Q9967; U0003; U0005

== ENCOUNTER 2021-10-14 11:09 | Emergency (ER) | payer MEDICARE, SELFPAY ==
[2021-10-14 11:19] VITALS: BP 98/83; PULSE 68; RESP 16; TEMP 36.9; O2SAT 98
--- NOTE | 2021-10-14 11:37 | ED.NAVMDI ---
HPI - Nausea/Vomiting/Diarrhea General Chief complaint: Nausea/Vomiting/Diarrhea Stated complaint: Throwing Up,Chills Time Seen by Provider: 10/14/21 11:37 Source: patient and RN notes reviewed Mode of arrival: ambulatory Limitations: no limitations History of Present Illness HPI Narrative: 66 y/o female presented for c/o nausea and vomiting since yesterday. About 5 -6 episodes of vomiting yesterday. Able to tolerate toast last night and oatmeal today without vomiting. Low grade fever under 100 yesterday. No emesis today but continues to endorse nausea and abdominal cramping. Endorses fatigue and ear ringing with headache. Denies sick contacts . Hx lung cancer remission for 3 months. Denies cough, sob, wheezing. Related Data Home Medications Medication Instructions Recorded Confirmed aspirin 81 mg tablet,delayed 81 mg PO DAILY 02/04/19 10/14/21 release (Adult Aspirin Regimen) metoprolol tartrate 25 mg tablet 25 mg PO BID 07/22/21 10/14/21 multivitamin (Daily Multi-Vitamin 1 tablet PO DAILY 07/22/21 10/14/21 tablet) rosuvastatin 40 mg tablet 40 mg PO DAILY 07/22/21 10/14/21 Allergies Allergy/AdvReac Type Severity Reaction Status Date / Time CILANTRO Allergy Vomiting Verified 10/14/21 11:20 nitroglycerin AdvReac Hypotension Verified 10/14/21 11:20 Review of Systems Review of Systems: CONSTITUTIONAL: Denies body aches ENT: Denies rhinorrhea, congestion CARDIOVASCULAR: Denies chest pain, palpitations, or edema. RESPIRATORY: Denies cough or dyspnea. GASTROINTESTINAL: Endorses abdominal pain, nausea, vomiting, Denies hematochezia, melena, hematemesis, diarrhea. GENITOURINARY: Denies dysuria, hematuria, or CVA tenderness. SKIN: Denies rash, itching, or wounds. MUSCULOSKELETAL: Denies back pain, joint pain, or myalgia. NEUROLOGIC: Denies headache, numbness, tingling, or weakness. All systems reviewed & are unremarkable except as noted in HPI and below PMFSH Past Medical History Medical History COPD (chronic obstructive pulmonary disease) Inflammatory arthritis Muscle cramps (~12/2018) RT lower extremity Obstructive sleep apnea Shortness of Breath SOB (shortness of breath) Surgical History Surgical History H/O: hysterectomy Family History Family History Mother Lung cancer Grandparent COPD (chronic obstructive pulmonary disease) Father Acute myocardial infarction Lung cancer Grandparent Congestive heart failure Social History Social History Social History: Quit 2016 Smoking packs per day: 2 Smoking cigarettes per day: 40.0 Years smoked: 30 Smoking pack-years: 60.00 Smoking status: Former smoker Tobacco type: cigarettes Second hand tobacco smoke exposure: No Smoking end date: 03/16/16 Alcohol intake: never Substance use: never Substance use type: does not use Gender identity (if verbalized by the patient): Female Sexual Orientation (if Verbalized by the Patient): Straight or Heterosexual Spiritual care concerns: No Agree to blood products: Yes Comments At time of signature, I have reviewed and agree with nursing past medical, surgical, social and family history unless otherwise noted. Please see nursing chart for further information. There is no relevant family history pertinent to the presenting complaint Exam Narrative: GENERAL: ill-appearing, nontoxic in no acute distress. EYES: EOMI. Conjunctivae normal. ENT: Mucous membranes pink and moist. CHEST: No respiratory distress. Clear to auscultation. HEART: Regular rate and rhythm. No murmur appreciated. Normal peripheral pulses. ABDOMEN: abd soft, nondistended,decreased active bowel sounds. Tender abdomen to bilateral upper quadrants and epigastric area; No guarding, rebound t
[2021-10-14] MEDS: ONDANSETRON HCL ODT 4 MG TABLET SUBLINGUAL (11:47)
== END 2021-10-14 12:13 | disposition home or self-care (01) ==
PROVIDERS: Emergency Provider Nurse Practitioner Family; PCP Family Medicine Adolescent Medicine
DX: R11.2 Nausea with vomiting, unspecified (principal); Z20.822 Contact with and (suspected) exposure to COVID-19; Z87.891 Personal history of nicotine dependence; J44.9 Chronic obstructive pulmonary disease, unspecified; M13.80 Other specified arthritis, unspecified site; G47.33 Obstructive sleep apnea (adult) (pediatric)
CPT/HCPCS: 87426; 99213; A9270; C9803; G0463

== ENCOUNTER 2021-11-05 09:57 | Outpatient (CLI) | payer MEDICARE, SELFPAY ==
[2021-11-05 10:41] LABS: Appearance Urine Clear (Clear); Bilirubin Urine Negative (Negative); Blood Urine Trace-lysed (Negative); Color Urine Yellow (Yellow); Glucose Urine UA Negative (Negative); Ketones Urine Negative (Negative); Leukocyte Esterase Ur Negative LEU/UL (Negative); Nitrate Urine Negative (Negative); Protein Urine Negative (Negative); Urobilinogen Urine 0.2 mg/dL (<2.0); pH Urine 5.5 (5.0-9.0)
[2021-11-05 10:42] LABS: Hematocrit 40.8 % (37.0-47.0); Hemoglobin 12.7 g/dL (12.0-15.0); Mean Corpuscular HGB Conc 31.1 g/dl (32-36); Mean Corpuscular Hemoglobin 28.4 pg (26-34); Mean Corpuscular Volume 91.3 fl (80-100); Platelet Count Result 336 k/mm3 (150-375); Red Blood Count 4.47 M/mm3 (4.2-5.4); Red Cell Distribution Width 14.9 % (11.5-14.5); White Blood Count 9.6 K/mm3 (4.5-10.0)
[2021-11-05 10:47] LABS: Add Urine Microscopic? YES; Mucus Urine Rare /lpf; Squamous Epithelial Cell Urine Occasional /hpf (Few); WBC Urine 0-3 /hpf
[2021-11-05 11:01] LABS: Alanine Aminotransferase 26 U/L (6-35); Albumin Level 4.4 g/dL (3.5-5.1); Alkaline Phosphatase 94 U/L (38-126); Anion Gap 11 mmol/L (8-16); Aspartate Amino Transferase 30 U/L (14-36); Bilirubin,Total 0.7 mg/dL (0.2-1.3); Blood Urea Nitrogen 16 mg/dL (7-17); Calcium 9.5 mg/dL (8.4-10.2); Carbon Dioxide 26 mmol/L (22-30); Chloride 103 mmol/L (98-107); Creatine Kinase 39 U/L (30-135); Estimated Glomerular Filt Rate > 60; Glucose 97 mg/dL (65-110); Potassium 4.3 mmol/L (3.4-5.0); Sodium 140 mmol/L (137-145)
[2021-11-05 11:15] LABS: Erythrocyte Sedimentation Rate 32 mm/hr (0-20)
[2021-11-08 04:06] LABS: Aldolase 5.4 U/L (<=8.1)
== END 2021-11-05 09:58 | disposition home or self-care (01) ==
PROVIDERS: PCP Family Medicine Adolescent Medicine; Visit Provider Internal Medicine
DX: M19.90 Unspecified osteoarthritis, unspecified site (principal); C34.90 Malignant neoplasm of unspecified part of unspecified bronchus or lung; R25.2 Cramp and spasm; R70.0 Elevated erythrocyte sedimentation rate
CPT/HCPCS: 36415; 80053; 81001; 82085; 82550; 84443; 85027; 85652; 86140

== ENCOUNTER 2022-02-12 18:48 | Observation (INO) | payer MEDICARE, SELFPAY ==
[2022-02-12] VITALS (19 sets, daily range): BP systolic 136–182; BP diastolic 55–83; PULSE 66–85; RESP 14–29; TEMP 36.1; O2SAT 99
--- NOTE | ~2022-02-12 | XR_ITS ---
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 RESULT: Lines, tubes, and devices: None. Lungs and pleura: Diffuse reticulonodular pattern. No focal consolidation, pneumothorax, or large ef fusion. Mild emphysematous/senescent change. Cardiomediastinal silhouette: Stable. Other: No acute osseous or upper abdominal finding. IMPRESSION: Pulmonary opacities may represent bronchiolitis, as can be seen with atypical infection, asthma, aspi ration, and small airways disease. Reviewed, dictated and finalized at location K. ING MACHINE SET UP MECHANIC IMPRESSION: Pulmonary opacities may represent bronchiolitis, as can be seen with atypical i nfection, asthma, aspiration, and small airways disease.
--- NOTE | ~2022-02-12 | CT_ITS ---
EXAMINATION: CTA brain carotid DATE: 02/12/2022 22:25 INDICATION: Dizziness / R hand dystaxia, headache TECHNIQUE: Computed tomographic angiography (CTA) of the head was performed without and with 100 mL O mnipaque-350 intravenous contrast. CTA of the neck was performed with intravenous contrast. The dose- length product was 1729.46 mGy-cm. Maximum intensity projection and volume rendered 3D-reconstruction s were created by the technologist on a separate workstation. COMPARISON: CT brain 12/18/2012. FINDINGS: CT BRAIN: No acute large vessel infarct, intracranial hemorrhage, mass, or hydrocephalus. Mild chronic white ma tter change. Bilateral lens replacements. CTA HEAD: No large vessel occlusion, aneurysm, high flow vascular malformation, nidus or extravasation. Calcifi cations in the bilateral cavernous carotids, without significant stenosis. CTA NECK: Aortic arch and proximal great vessels: Atherosclerotic calcifications at the visualized aortic arch and proximal great vessels. Right common carotid, carotid bifurcation, and internal carotid artery: Calcified and noncalcified pl aque at the right carotid bifurcation.There is 23% stenosis of the proximal right internal carotid ar marcial relative to normal distal artery lumen diameter (NASCET criteria). Left common carotid, carotid bifurcation, and internal carotid artery: Calcified and noncalcified dennis que at the left carotid bifurcation.There is 19% stenosis of the proximal left internal carotid arter y relative to normal distal artery lumen diameter (NASCET criteria). Vertebral arteries: Noncalcified plaque at the origin of the left vertebral artery causing stenosis. No significant stenosis noted distally in the left vertebral artery origin the entirety of the right vertebral artery. Left vertebral artery is dominant. Other findings: Multiple subcentimeter thyroid hypodensities that require no additional workup. Apica l pleural blebs and scarring. Emphysematous changes. Degenerative changes in the cervical spine. IMPRESSION: 1. No acute large vessel infarct. 2. Calcified and noncalcified plaques in the right and left carotid bifurcations causing 20% and 19% stenoses, respectively. 3. Moderate stenosis of the left vertebral artery origin. Reviewed, dictated and finalized at location K. IC PHYSICIAN IMPRESSION: 1. No acute large vessel infarct. 2. Calcified and noncalcified plaques in the right and left carotid bifurcation s causing 20% and 19% stenoses, respectively. 3. Moderate stenosis of the left vertebral artery origin.
--- NOTE | ~2022-02-12 | US_ITS ---
EXAMINATION: US carotid duplex BI DATE: 02/13/2022 14:16 INDICATION: TIA TECHNIQUE: Grayscale, color Doppler, and pulsed Doppler images of the cervical carotid arteries were obtained. The degree of vessel stenosis is placed in one of the following categories: normal, <50%, 5 0-69%, >=70% but less than near-occlusion, near-occlusion, or total occlusion. Note that percent sten osis relative to normal distal artery lumen diameter is indirectly measured from velocity measurement s as described by Evgeny, et al. Radiology 2003; 229:340-346. Notes: Normal: Peak systolic velocity <125 centimeters/sec and no plaque <50%. Peak systolic velocity <125 ( EDV <40; ICA/CCA PSV ratio <2.0; used these factors only a tandem lesions or low cardiac output or co ntralateral disease) 50-69 %: PSV 125-230 (EDV 40-100; ratio 2-4) >= 70% but less than near occlusion: PSV greater than 230 (EDV > 100; ratio> 4.0) Near Occlusion: PSV that is variable; markedly narrowed lumen Occlusion: Absent flow on color/spectral Doppler and no lumen on sanders scale. COMPARISON: None. FINDINGS: RIGHT: The right common carotid artery (CCA) peak systolic velocity (PSV) is 60 cm/s. The right internal car otid artery (ICA) PSV is 80 cm/s. The right ICA end-diastolic velocity (EDV) is 19 cm/s. The right IC A/CCA PSV ratio is 1.3. The external carotid artery (ECA) PSV is 147 cm/s. There is antegrade flow in the right vertebral artery. LEFT: The left CCA PSV is 58 cm/s. The left ICA PSV is 81 cm/s. The left ICA EDV is 16 cm/s. The left ICA/C CA PSV ratio is 1.4. The ECA PSV is 200 cm/s. There is antegrade flow in the left vertebral artery. IMPRESSION: 1. Less than 50% stenosis in the right internal carotid artery by sonographic criteria. 2. Less than 50% stenosis in the left internal carotid artery by sonographic criteria. Reviewed, dictated and finalized at location A. THERAPY TEACHER IMPRESSION: 1. Less than 50% stenosis in the right internal carotid artery by sonographic lita herrera. 2. Less than 50% stenosis in the left internal carotid artery by sonographic marge loera.
--- NOTE | 2022-02-12 18:59 | ECG_ITS ---
Measurements Intervals [place] Rate: 72 P: 70 CT: 185 QRS: 63 QRSD: 87 T: 62 QT: 377 QTc: 415 Interpretive Statements SINUS RHYTHM NORMAL ECG COMPARED TO ECG 09/11/2021 18:28:49 NO SIGNIFICANT CHANGES Electronically Signed On 02-12-2022 21:03:03 MENTAL HEALTH SPECIALIST by Naveen Gant D.O.
[2022-02-12 19:17] LABS: Basophils Absolute Auto 0.1 K/mm3 (0.0-0.1); Basophils Percent Auto 0.6 % (0.2-1.2); Eosinophils Absolute Auto 0.1 K/mm3 (0-0.3); Eosinophils Percent Auto 1.5 % (0-4.4); Hematocrit 41.7 % (37.0-47.0); Hemoglobin 13.6 g/dL (12.0-15.0); Immature Granulocyte Absolute 0.02 K/mm3 (0.00-0.031); Immature Granulocyte Percent A 0.2 % (0-0.5); Lymphocytes Absolute Auto 2.58 K/mm3 (0.9-3.2); Lymphocytes Percent Auto 26.8 % (18.3-44.2); Mean Corpuscular HGB Conc 32.6 g/dl (32-36); Mean Corpuscular Hemoglobin 29.1 pg (26-34); Mean Corpuscular Volume 89.3 fl (80-100); Mean Platelet Volume 10.2 fl (7.4-10.4); Monocytes Absolute Auto 0.7 K/mm3 (0.1-0.6); Monocytes Percent Auto 7.6 % (2.6-8.5); Neutrophils Absolute Auto 6.1 K/mm3 (1.3-6.7); Neutrophils Percent Auto 63.3 % (45.5-73.1); Platelet Count Result 321 k/mm3 (150-375); Red Blood Count 4.67 M/mm3 (4.2-5.4); Red Cell Distribution Width 14.4 % (11.5-14.5); White Blood Count 9.6 K/mm3 (4.5-10.0)
[2022-02-12 19:28] LABS: Prothrombin Time 13.1 Seconds (11.1-14.7)
[2022-02-12 19:29] LABS: Partial Thromboplastin Time 27.3 SECONDS (22.3-36.8)
[2022-02-12 19:37] LABS: Alanine Aminotransferase 30 U/L (6-35); Albumin Level 4.5 g/dL (3.5-5.1); Alkaline Phosphatase 89 U/L (38-126); Anion Gap 8 mmol/L (8-16); Aspartate Amino Transferase 31 U/L (14-36); Bilirubin,Total 0.5 mg/dL (0.2-1.3); Blood Urea Nitrogen 16 mg/dL (7-17); Calcium 9.4 mg/dL (8.4-10.2); Carbon Dioxide 27 mmol/L (22-30); Chloride 105 mmol/L (98-107); Estimated CRCL calculation 53 ml/min; Estimated Glomerular Filt Rate 55; Glucose 97 mg/dL (65-110); Lipase 152 U/L (23-300); Potassium 3.7 mmol/L (3.4-5.0); Sodium 140 mmol/L (137-145)
[2022-02-12 19:49] LABS: Troponin I 0.015 ng/mL (0.000-0.034)
--- NOTE | 2022-02-12 21:43 | ED.GENADULT ---
HPI - General Adult General Chief complaint: Recheck/Abnormal Lab/Rx Stated complaint: high blood pressure/dizziness Time Seen by Provider: 02/12/22 20:57 History of Present Illness HPI narrative: This is a 66-year-old female with a history of hypertension, coronary artery disease and hypercholesteremia presenting to ED with 2 days of dizziness. Patient's last known normal was Thursday night when she went to bed. When she woke up Thursday she was feeling dizzy and having difficulty walking without holding onto things. She was able to go up along throughout her day and then woke up this morning with worse dizziness. At this point she also has a bitemporal headache that she describes as an achy, nonradiating 5/10 in intensity it is gradually getting worse. She has never experienced pain like this before. She says it is improved by closing her eyes because moving her eyes makes her nauseous. She denies double vision, difficulty speaking swallowing. Patient notes that her blood pressure has been elevated the last 2 days and she has been taking her medication as directed. Patient has had vertigo in the past and says this does not feel similar to that. Related Data Home Medications Medication Instructions Recorded Confirmed aspirin 81 mg tablet,delayed 81 mg PO DAILY 02/04/19 11/20/21 release (Adult Aspirin Regimen) rosuvastatin 40 mg tablet 40 mg PO DAILY 07/22/21 11/20/21 Allergies Allergy/AdvReac Type Severity Reaction Status Date / Time CILANTRO Allergy Vomiting Verified 12/03/21 10:41 ciprofloxacin [From Cipro] AdvReac Unknown Rash Verified 12/03/21 10:41 Penicillins AdvReac Unknown Rash Verified 12/03/21 10:41 nitroglycerin AdvReac Hypotension Verified 12/03/21 10:41 propanolol AdvReac Unknown Unknown Uncoded 12/03/21 10:41 Review of Systems Review of Systems: CONSTITUTIONAL: Denies night sweats. EYES: No eye pain ENT: Denies rhinorrhea CARDIOVASCULAR: Denies palpitations RESPIRATORY: Denies hemoptysis GASTROINTESTINAL: Denies hematemesis GENITOURINARY: Denies hematuria. SKIN: Denies rash MUSCULOSKELETAL: Denies myalgia. NEUROLOGIC: Denies weakness. PSYCHIATRIC: Denies delusions PMFSH Past Medical History Medical History COPD (chronic obstructive pulmonary disease) ESR raised History of trigger finger (~01/2017) right Inflammatory arthritis Muscle cramps (~12/2018) RT lower extremity Obstructive sleep apnea Right calf pain Shortness of Breath SOB (shortness of breath) Surgical History Surgical History H/O: hysterectomy History of carpal tunnel release (~07/2016) Right History of carpal tunnel release (~08/2016) left Family History Family History Mother Lung cancer Grandparent COPD (chronic obstructive pulmonary disease) Father Acute myocardial infarction Lung cancer Grandparent Congestive heart failure Social History Social History Social History: Quit 2016 Smoking packs per day: 2 Smoking cigarettes per day: 40.0 Years smoked: 30 Smoking pack-years: 60.00 Smoking status: Former smoker Tobacco type: cigarettes Second hand tobacco smoke exposure: No Smoking end date: 03/16/16 Alcohol intake: never Substance use: never Substance use type: does not use Gender identity (if verbalized by the patient): Female Sexual Orientation (if Verbalized by the Patient): Straight or Heterosexual Spiritual care concerns: No Agree to blood products: Yes Exam Narrative: APPEARANCE: No apparent distress. Patient appears uncomfortable Head: atraumatic. EYES: EOMI, extraocular eye movement makes patient nauseous. NOSE: Atraumatic NECK: Trachea midline RESPIRATORY: No increased rate of breathing CARDIOVASCULAR: RRR, ABDOMINAL: Non-distended MUSCU
[2022-02-12] MEDS: ASPIRIN 81 MG CHEWABLE TABLET 324 MG PO (22:25)
[2022-02-12] MEDS: MECLIZINE HCL 25 MG TABLET PO (22:26)
[2022-02-12 23:38] LABS: Troponin I 0.021 ng/mL (0.000-0.034)
[2022-02-13] VITALS (42 sets, daily range): BP systolic 114–170; BP diastolic 45–95; PULSE 68–102; RESP 11–31; TEMP 36.6–37; O2SAT 96–100; BMI 34.0
--- NOTE | 2022-02-13 | ECHO_ITS ---
Patient Info Name: Heather Solorzano Age: 66 years : 1955 Gender: Female Ht: 64 in Wt: 198 lbs BSA: 2.05 m2 HR: 78 bpm BP: 140 / 74 mmHg Heart Rhythm: Sinus Rhythm Technical Quality: Fair Exam Date: 02/13/2022 2:26 PM Exam Location: [facility] Pulmonary Exam Room: 311 Patient Status: Inpatient Admit Date: 02/13/2022 Staff Ordering Physician: Dagoberto Sadler MD Computational Theory Scientist: Yolande James RCS Attending Provider: Viv Chilel MD Referring Physician: Doroteo DOYLE; Exam Type: CA echo doppler color flow Study Info Indications - TIA HX/O HTN CAD STENT Complete two-dimensional, color flow and Doppler transthoracic echocardiogram is performed. Summary 1. Complete two-dimensional, color flow and Doppler transthoracic echocardiogram is performed. 2. Left ventricular systolic function is normal, estimated at 65-70%. 3. The left ventricular diastolic function is grade I diastolic dysfunction. 4. Right ventricular systolic function is normal. 5. No significant valvular disease. Left Ventricle Left ventricular chamber dimension is normal. Left ventricular systolic function is normal, estimated at 65-70%. There is no increased left ventricular wall thickness. The left ventricular diastolic function is grade I diastolic dysfunction. Right Ventricle Right ventricular chamber dimension is normal. Right ventricular systolic function is normal. Left Atria Left atrial chamber dimension is normal. Right Atria Right atrial chamber dimension is normal. Atrial Septum Intact interatrial septum visualized by color flow imaging. Aortic Valve The aortic valve is not well visualized. There is no aortic valve stenosis. There is no aortic valve regurgitation. Pulmonic Valve The pulmonic valve is not well visualized. Mitral Valve The mitral valve has normal leaflets. There is no mitral valve stenosis. There is trace mitral valve regurgitation. Tricuspid Valve There is trace tricuspid valve regurgitation. Pericardium/Pleural There is no pericardial effusion. Inferior Vena Cava Normal inferior vena cava with <50% collapse upon inspiration consistent with elevated right atrial pressure. Aorta The aortic root size at the sinus of Valsalva is not well visualized. Left Ventricular Outflow Tract Name Value Normal LVOT 2D LVOT Diameter 2.0 cm LVOT Doppler LVOT Peak Gradient 6 mmHg LVOT Mean Gradient 3 mmHg LVOT VTI 26 cm LVOT VTI/AV VTI Ratio 0.7 LVOT Stroke Volume 80 ml LVOT CO 15.9 l/min LVOT CI 7.7 l/min/m2 Pulmonic Valve Name Value Normal PV Doppler PV Peak Gradient 5 mmHg Mitr
[2022-02-13 01:55] LABS: Influenza A QL RT-PCR Negative (Negative); Influenza B QL RT-PCR Negative (Negative); SARS-CoV-2 RNA PCR Negative
[2022-02-13 02:26] LABS: Troponin I 0.019 ng/mL (0.000-0.034)
--- NOTE | 2022-02-13 03:00 | ECG_ITS ---
Measurements Intervals [place] Rate: 86 P: 79 MT: 158 QRS: 75 QRSD: 98 T: 47 QT: 396 QTc: 475 Interpretive Statements SINUS RHYTHM NONSPECIFIC ST & T-WAVE ABNORMALITY ABNORMAL ECG COMPARED TO ECG 02/12/2022 19:05:24 T-WAVE ABNORMALITY NOW PRESENT Electronically Signed On 02-13-2022 11:20:55 FISHING [employer]OD TRIMMER by Saurabh Salazar M.D.
--- NOTE | 2022-02-13 06:00 | PC.NURSE ---
Awaiting bed assignment to floor. Patient resting well.
--- NOTE | 2022-02-13 08:16 | ADMGEN ---
ADMISSION PROCESS DONE IN ED WHILE PT AWAITS BED ON FLOOR. This patient, Heather Solorzano, was admitted to Virtual Bed 3rd Floor-4. Patient/family oriented to hospital policies and general routines including ID bracelet, bed and alarms, visiting hours, pain management, procedures, bathroom and other care routines, personal items, smoking policy, room service/diet, and visiting hours. Information on how to activate the Rapid Response Team has been discussed. Patient IS are encouraged to report perceived risks to care and to ask questions if they do not understand what they are told or what they should do.
--- NOTE | 2022-02-13 10:06 | PC.NURSE ---
lunch tray ordered
--- NOTE | 2022-02-13 12:24 | PM.IMHP ---
H&P: HPI History of Present Illness Date/Time: 02/13/22 12:24 Chief Complaint: This is a 66-year-old female with a history of hypertension, coronary artery disease and hypercholesteremia presenting to ED with 2 days of dizziness.? Patient's last known normal was Thursday night when she went to bed.? When she woke up Thursday she was feeling dizzy and having difficulty walking without holding onto things.? She was able to go up along throughout her day and then woke up this morning with worse dizziness.? At this point she also has a bitemporal headache that she describes as an achy, nonradiating 5/10 in intensity it is gradually getting worse.? She has never experienced pain like this before.? She says it is improved by closing her eyes because moving her eyes makes her nauseous.? She denies double vision, difficulty speaking swallowing.? Patient notes that her blood pressure has been elevated the last 2 days and she has been taking her medication as directed.? Patient has had vertigo in the past and says this does not feel similar to that. FOR[facility]LY [facility] Past Medical History Medical History COPD (chronic obstructive pulmonary disease) ESR raised History of trigger finger (~01/2017) right Inflammatory arthritis Muscle cramps (~12/2018) RT lower extremity Obstructive sleep apnea Right calf pain Shortness of Breath SOB (shortness of breath) Surgical History Surgical History H/O: hysterectomy History of carpal tunnel release (~07/2016) Right History of carpal tunnel release (~08/2016) left Family History Family History Mother Lung cancer Grandparent COPD (chronic obstructive pulmonary disease) Father Acute myocardial infarction Lung cancer Grandparent Congestive heart failure Social History Social History Social History: Quit 2016 Smoking packs per day: 2 Smoking cigarettes per day: 40.0 Years smoked: 30 Smoking pack-years: 60.00 Smoking status: Never smoker Tobacco type: cigarettes Second hand tobacco smoke exposure: No Smoking end date: 01/01/17 Alcohol intake: never Substance use: never Substance use type: does not use Lack of Transportation: No Lack of Food: Never True Current Housing: I Have Housing Concerned About Future Housing: No Difficulty Paying Gas/Electric Bills: No Difficulty Paying for Meds: No Currently Unemployed: No Education: Don't Know Difficulty w/ Childcare or Family Care: No Gender identity (if verbalized by the patient): Female Sexual Orientation (if Verbalized by the Patient): Straight or Heterosexual Spiritual care concerns: No Agree to blood products: Yes Meds Home Medications and Allergies Home Medications Medication Instructions Recorded Confirmed Type aspirin 81 mg tablet,delayed 81 mg PO DAILY 02/04/19 02/13/22 History release (Adult Aspirin Regimen) albuterol sulfate 90 mcg/actuation 1 inh inhalation QID PRN shortness 05/13/21 02/13/22 Rx aerosol inhaler (Ventolin HFA) of breath or wheezing 90 days #25.5 grams ipratropium bromide 17 1 puff inhalation QID PRN 05/13/21 02/13/22 Rx mcg/actuation HFA aerosol inhaler shortness of breath or wheezing 90 days #38.7 grams fluticasone furoate 100 See Rx Instructions .Route 10/28/21 02/13/22 Rx mcg-vilanterol 25 mcg/dose .COMPLEX #180 ea inhalation powder (Breo Ellipta) metoprolol tartrate 25 mg tablet 25 mg PO BID #180 tabs 11/20/21 02/13/22 Rx multivitamin with minerals-folic 1 tablet PO DAILY 02/13/22 02/13/22 History acid 0.4 mg tablet potassium 75 mg tablet 75 mg PO DAILY 02/13/22 02/13/22 History Allergies Allergy/AdvReac Type Severity Reaction Status Date / Time CILANTRO Allergy Vomiting Verified 02/13/22 08:19 ciprofloxacin [From C
[2022-02-13 13:17] LABS: Cholesterol 199 mg/dL (0-200); HDL Direct 46 mg/dL; Triglycerides 122 mg/dL (<150)
[2022-02-13 13:29] LABS: LDL Cholesterol Direct 107 mg/dL
--- NOTE | 2022-02-13 14:04 | WPDNEURCNPN ---
Assessment and Plan Assessment and plan (1) TIA involving vertebral artery: Code(s): G45.0 - Vertebro-basilar artery syndrome Status: Acute Plan 1 Left vertebral artery stenosis will need to be referred to vascular surgeon for the 2nd opinion with the possible stenting being continued on aspirin and Plavix. Consult date: 02/14/22 HPI: Heather Solorzano is a 66 year old female admitted to the hospital through the emergency room where she presented with complaints of dizziness of 48 hours duration reportedly she was last normal on Thursday night when she went to bed and she woke up Thursday feeling dizzy and difficulties in walking without holding on to things she was able to go up along throughout her day and then woke up in the morning with worse dizziness. At that time she noted the by temporal headache a 5/10 intensity but gradually getting worse she felt better when she closed her eyes she complained of nausea when moved her eyes though she did not have double vision or any difficulties in swallowing or speech her blood pressure had been elevated over 48 hours she has had vertigo in the past but not this time. Her outpatient medications included aspirin 81 mg daily and rosuvastatin 40 mg daily she has history of multiple drug allergies as outlined, she has ongoing history of COPD, inflammatory arthritis, and history of muscle cramps, she has history of smoking cigarettes per day for 40 with years smoked 30 his smoking pack year 60 but former smoker with end date of March 16, 2016 and also no alcohol consumption initial exam in the emergency room was negative vital signs were with blood pressure 182/70 CT of the head negative for the acute bleed CTA of the head and neck calcified and noncalcified plaque in the right and left carotid bifurcation causing 20 and 19% stenosis in addition to moderate stenosis of the left vertebral artery origin EKG without atrial fibrillation stable vital signs, normal CBC and BMP. Patient has been started on 81 mg of aspirin. Review of Systems Review of Systems: All systems reviewed & are unremarkable except as noted in HPI and below PMFSH Past Medical History Medical History COPD (chronic obstructive pulmonary disease) ESR raised History of trigger finger (~01/2017) right Inflammatory arthritis Muscle cramps (~12/2018) RT lower extremity Obstructive sleep apnea Right calf pain Shortness of Breath SOB (shortness of breath) Surgical History Surgical History H/O: hysterectomy History of carpal tunnel release (~07/2016) Right History of carpal tunnel release (~08/2016) left Family History Family History Mother Lung cancer Grandparent COPD (chronic obstructive pulmonary disease) Father Acute myocardial infarction Lung cancer Grandparent Congestive heart failure Social History Social History Social History: Quit 2016 Smoking packs per day: 2 Smoking cigarettes per day: 40.0 Years smoked: 30 Smoking pack-years: 60.00 Smoking status: Never smoker Tobacco type: cigarettes Second hand tobacco smoke exposure: No Smoking end date: 03/16/16 Alcohol intake: never Substance use: never Substance use type: does not use Lack of Transportation: No Lack of Food: Never True Current Housing: I Have Housing Concerned About Future Housing: No Difficulty Paying Gas/Electric Bills: No Difficulty Paying for Meds: No Currently Unemployed: No Education: Don't Know Difficulty w/ Childcare or Family Care: No Gender identity (if verbalized by the patient): Female Sexual Orientation (if Verbalized by the Patient): Straight or Heterosexual Spiritual care concerns: No Agree to blood products: Yes Meds Home Medications and Aller
--- NOTE | 2022-02-13 14:33 | ADMGEN ---
This patient, Heather Solorzano, was admitted to [facility] Surg Room 311-01 at 1410. Patient/family oriented to hospital policies and general routines including ID bracelet, bed and alarms, visiting hours, pain management, procedures, bathroom and other care routines, personal items, smoking policy, room service/diet, and visiting hours. Information on how to activate the Rapid Response Team has been discussed. Patient/Family are encouraged to report perceived risks to care and to ask questions if they do not understand what they are told or what they should do.
[2022-02-14 00:40] VITALS: PULSE 101; RESP 14; O2SAT 94
[2022-02-14 06:15] VITALS: BP 110/46; PULSE 101; RESP 16; TEMP 36.3; O2SAT 94
[2022-02-14 06:38] LABS: Basophils Percent Auto 0.7 % (0.2-1.2); Eosinophils Absolute Auto 0.2 K/mm3 (0-0.3); Eosinophils Percent Auto 2.8 % (0-4.4); Hematocrit 40.8 % (37.0-47.0); Hemoglobin 13.2 g/dL (12.0-15.0); Immature Granulocyte Absolute 0.02 K/mm3 (0.00-0.031); Immature Granulocyte Percent A 0.3 % (0-0.5); Lymphocytes Absolute Auto 1.65 K/mm3 (0.9-3.2); Lymphocytes Percent Auto 27.5 % (18.3-44.2); Mean Corpuscular HGB Conc 32.4 g/dl (32-36); Mean Corpuscular Hemoglobin 29.2 pg (26-34); Mean Corpuscular Volume 90.3 fl (80-100); Mean Platelet Volume 10.4 fl (7.4-10.4); Monocytes Absolute Auto 0.5 K/mm3 (0.1-0.6); Monocytes Percent Auto 7.7 % (2.6-8.5); Neutrophils Absolute Auto 3.7 K/mm3 (1.3-6.7); Platelet Count Result 292 k/mm3 (150-375); Red Blood Count 4.52 M/mm3 (4.2-5.4); Red Cell Distribution Width 14.6 % (11.5-14.5)
[2022-02-14 06:54] LABS: Anion Gap 7 mmol/L (8-16); Blood Urea Nitrogen 12 mg/dL (7-17); Calcium 8.7 mg/dL (8.4-10.2); Carbon Dioxide 25 mmol/L (22-30); Chloride 110 mmol/L (98-107); Estimated CRCL calculation 65 ml/min; Estimated Glomerular Filt Rate > 60; Glucose 96 mg/dL (65-110); Potassium 4.1 mmol/L (3.4-5.0); Sodium 142 mmol/L (137-145)
[2022-02-14 09:00] VITALS: O2SAT 92
[2022-02-14 09:48] VITALS: PULSE 78
[2022-02-14] MEDS: METOPROLOL TARTRATE 50 MG TAB PO (09:48)
[2022-02-14] MEDS: ASPIRIN 81 MG ENTERIC TABLET PO (09:49)
[2022-02-14] MEDS: THERAPEUTIC MULTIVITAMINS/MINERALS TAB (*BKC) 1 TABLET PO (09:49)
--- NOTE | 2022-02-14 12:32 | PM.DS ---
DS: Admitting Diagnosis Discharge Date February 14, 2022 Admitting Diagnosis TIA, dizziness DS: Discharge Diagnosis Discharge Diagnosis (1) Dizziness: Code(s): R42 - Dizziness and giddiness Status: Acute Assessment and Plan: improved today. Patient was not complaining any dizziness whenever I spoke with her this morning. Blood pressure is improved. Heart rate is okay. Tolerating change in dose of beta-claudio (2) CAD (coronary artery disease): Code(s): I25.10 - Atherosclerotic heart disease of [place] coronary artery without angina pectoris Status: Acute Assessment and Plan: No chest pain (3) HTN (hypertension): Code(s): I10 - Essential (primary) hypertension Status: Acute Assessment and Plan: Adjust medications keep blood pressure under control (4) Lung cancer: Code(s): C34.90 - Malignant neoplasm of unspecified part of unspecified bronchus or lung Status: Acute DS: Summary Hospital Course Hospital Course: patient is a 66-year-old female who over the last week or 2 has developed some dizziness vertigo. She has a history of benign vertigo. Nonetheless she was evaluated in the ER found to be hypertensive and was admitted for TIA and stroke rule out. Workup was relatively unrevealing with the exception of moderate vertebral stenosis on left. This will need to be followed by Neurology as an outpatient. I spoke with neurologist who also evaluated the patient and felt the patient could go home his lungs are blood pressure is under better control and she can be sent home on aspirin. Patient is to follow up with Dr. Paula Time Spent with Patient Time attestation: Total time spent providing and/or coordinating discharge services: Exam Narrative: APPEARANCE: No apparent distress. Patient appears uncomfortable Head: atraumatic. EYES: EOMI, extraocular eye movement makes patient nauseous. NOSE: Atraumatic NECK: Trachea midline RESPIRATORY: No increased rate of breathing CARDIOVASCULAR: RRR, ABDOMINAL: Non-distended MUSCULOSKELETAl: No obvious deformities NEURO: Alert. Cranial nerves 2-12 grossly intact. SKIN:: Warm, dry. Normal color PSYCHIATRIC: Normal affect DS: Data Data Completed and Pending Labs on day of discharge: Labs from last 24 hours 02/14/22 02/14/22 02/13/22 06:17 06:17 13:01 WBC 6.0 RBC 4.52 Hgb 13.2 Hct 40.8 MCV 90.3 MCH 29.2 MCHC 32.4 RDW 14.6 H Plt Count 292 MPV 10.4 Immature Gran % (Auto) 0.3 Neut % (Auto) 61.0 Lymph % (Auto) 27.5 [place] % (Auto) 7.7 Eos % (Auto) 2.8 Baso % (Auto) 0.7 Lymph # (Auto) 1.65 [place] # (Auto) 0.5 Eos # (Auto) 0.2 Baso # (Auto) 0.0 Abs Immat Gran (auto) 0.02 Absolute Neuts (auto) 3.7 Absolute Nucleated RBC 0.0 Nucleated RBC % 0.0 Sodium 142 Potassium 4.1 Chloride 110 H Carbon Dioxide 25 Anion Gap 7 L BUN 12 Creatinine 0.80 Estim Creat Clear Calc 65 Estimated GFR > 60 Glucose 96 Calcium 8.7 Triglycerides Cholesterol LDL Cholesterol Direct HDL Direct TSH (Reflex) 1.330 02/13/22 13:01 WBC RBC Hgb Hct MCV MCH MCHC RDW Plt Count MPV Immature Gran % (Auto) Neut % (Auto) Lymph % (Auto) [place] % (Auto) Eos % (Auto) Baso % (Auto) Lymph # (Auto) [place] # (Auto) Eos # (Auto) Baso # (Auto) Abs Immat Gran (auto) Absolute Neuts (auto) Absolute Nucleated RBC Nucleated RBC % Sodium Potassium Chloride Carbon Dioxide Anion Gap BUN Creatinine Estim Creat Clear Calc Estimated GFR Glucose Calcium Triglycerides 122 Cholesterol 199 LDL Cholesterol Direct 107 HDL Direct 46 TSH (Reflex) Discharge Plan Discharge Attending physician on discharge: Dagoberto Sadler Consulting providers: Andrea Paula Discharging Clinician: Dagoberto Sadler Patient Disposition: Home, Self-Care
== END 2022-02-14 14:38 | disposition home or self-care (01) ==
LOC: ANHED 02-13 01:49 → ANH3MEDSUR 02-13 04:01
PROVIDERS: Emergency Medicine; Admitting Provider Chiropractor; Emergency Provider Emergency Medicine; PCP Family Medicine Adolescent Medicine; Visit Provider Chiropractor
DX: R42 Dizziness and giddiness (principal); I25.10 Atherosclerotic heart disease of native coronary artery without angina pectoris; I11.9 Hypertensive heart disease without heart failure; C34.90 Malignant neoplasm of unspecified part of unspecified bronchus or lung; G45.0 Vertebro-basilar artery syndrome; E78.00 Pure hypercholesterolemia, unspecified; R26.2 Difficulty in walking, not elsewhere classified; R51.9 Headache, unspecified; J44.9 Chronic obstructive pulmonary disease, unspecified; M19.90 Unspecified osteoarthritis, unspecified site; Z20.822 Contact with and (suspected) exposure to COVID-19; G47.33 Obstructive sleep apnea (adult) (pediatric); R06.02 Shortness of breath; R94.31 Abnormal electrocardiogram [ECG] [EKG]; Z87.891 Personal history of nicotine dependence; Z79.51 Long term (current) use of inhaled steroids; Z79.82 Long term (current) use of aspirin; Z79.899 Other long term (current) drug therapy; Z82.49 Family history of ischemic heart disease and other diseases of the circulatory system
CPT/HCPCS: 36415; 70496; 70498; 71046; 80048; 80053; 80061; 83690; 84443; 84484; 85025; 85610; 85730; 87636; 93005; 93306; 93880; 97161; 97165; 99285; A9270; G0378; Q9967

== ENCOUNTER → 2022-05-16 10:50 | Outpatient (CLI) | payer MEDICARE, SELFPAY ==
--- NOTE | ~2022-05-16 | XR_ITS ---
Clinical Indication: Cough PA and lateral views of the chest: Comparison: 02/12/2022 Findings: The lungs are clear, without evidence of focal consolidation or pleural effusion. Cardiome diastinal silhouette is within normal limits. Bones and soft tissues are unremarkable. Impression: Normal chest. Reviewed, dictated and finalized at [facility]. [address] Impression: Normal chest.
== END ==
PROVIDERS: PCP Family Medicine Adolescent Medicine; Visit Provider Physician Assistant
DX: R05.9 Cough, unspecified (principal); J44.9 Chronic obstructive pulmonary disease, unspecified; Z87.891 Personal history of nicotine dependence
CPT/HCPCS: 71046

== ENCOUNTER 2022-07-31 09:42 | Outpatient (CLI) | payer MEDICARE, SELFPAY ==
--- NOTE | ~2022-07-31 | MM_ITS ---
EXAMINATION: MM screening [facility] BI w claire HISTORY: Screening mammogram TECHNIQUE: Craniocaudal and mediolateral oblique 3-D tomosynthesis images were obtained and synthetic 2-D images were generated. CAD analysis was submitted and interpreted. COMPARISON: 07/27/2021, 07/12/2020, 07/05/2018 BREAST PARENCHYMAL COMPOSITION: The breasts are almost entirely fatty. FINDINGS: No suspicious mass, calcification, or architectural distortion are identified in either [place] ast to suggest malignancy. There has been no suspicious interval change. IMPRESSION: 1. No mammographic evidence of malignancy. 2. Recommend routine screening mammography in one year. BI-RADS Category 1: Negative Reviewed, dictated and finalized at location A.
== END 2022-07-31 09:43 | disposition home or self-care (01) ==
PROVIDERS: PCP Family Medicine Adolescent Medicine; Visit Provider Family Medicine Adolescent Medicine
DX: Z12.31 Encounter for screening mammogram for malignant neoplasm of breast (principal)
CPT/HCPCS: 77063; 77067

== ENCOUNTER 2023-01-27 09:46 | Outpatient (CLI) | payer MEDICARE, SELFPAY ==
[2023-01-27 10:23] LABS: Basophils Absolute Auto 0.1 K/mm3 (0.0-0.1); Basophils Percent Auto 0.7 % (0.2-1.2); Eosinophils Absolute Auto 0.2 K/mm3 (0-0.3); Eosinophils Percent Auto 1.7 % (0-4.4); Hematocrit 39.6 % (37.0-47.0); Hemoglobin 12.4 g/dL (12.0-15.0); Immature Granulocyte Absolute 0.02 K/mm3 (0.00-0.031); Immature Granulocyte Percent A 0.2 % (0-0.5); Lymphocytes Absolute Auto 1.92 K/mm3 (0.9-3.2); Lymphocytes Percent Auto 21.7 % (18.3-44.2); Mean Corpuscular HGB Conc 31.3 g/dl (32-36); Mean Corpuscular Hemoglobin 28.8 pg (26-34); Mean Corpuscular Volume 92.1 fl (80-100); Mean Platelet Volume 10.2 fl (7.4-10.4); Monocytes Absolute Auto 0.5 K/mm3 (0.1-0.6); Monocytes Percent Auto 5.3 % (2.6-8.5); Neutrophils Absolute Auto 6.2 K/mm3 (1.3-6.7); Neutrophils Percent Auto 70.4 % (45.5-73.1); Platelet Count Result 326 k/mm3 (150-375); Red Cell Distribution Width 13.7 % (11.5-14.5); White Blood Count 8.9 K/mm3 (4.5-10.0)
[2023-01-27 10:30] LABS: Creatinine Urine 34.9 mg/dL
[2023-01-27 10:34] LABS: Alanine Aminotransferase 21 U/L (6-35); Albumin Level 4.3 g/dL (3.5-5.1); Alkaline Phosphatase 76 U/L (38-126); Anion Gap 10 mmol/L (8-16); Aspartate Amino Transferase 23 U/L (14-36); Bilirubin,Total 0.5 mg/dL (0.2-1.3); Blood Urea Nitrogen 15 mg/dL (7-17); Calcium 9.4 mg/dL (8.4-10.2); Carbon Dioxide 26 mmol/L (22-30); Chloride 105 mmol/L (98-107); Cholesterol 174 mg/dL (0-200); Estimated Glomerular Filt Rate > 60; Glucose 89 mg/dL (65-110); HDL Direct 52 mg/dL; Sodium 141 mmol/L (137-145); Triglycerides 143 mg/dL (<150)
[2023-01-27 10:47] LABS: LDL Cholesterol Direct 86 mg/dL
[2023-01-27 11:04] LABS: MALB Creatinine Ratio < 17.2 mg/g (0-30); Microalbumin Urine Random < 6.0 mg/L (0-16.7)
== END 2023-01-27 09:47 | disposition home or self-care (01) ==
PROVIDERS: PCP Family Medicine Adolescent Medicine; Visit Provider Nurse Practitioner Family
DX: I25.10 Atherosclerotic heart disease of native coronary artery without angina pectoris (principal); I10 Essential (primary) hypertension; M85.80 Other specified disorders of bone density and structure, unspecified site
CPT/HCPCS: 36415; 80053; 80061; 82043; 84443; 85025

== ENCOUNTER → 2024-06-21 10:09 | Outpatient (CLI) | payer MEDICARE, SELFPAY ==
--- NOTE | ~2024-06-21 | XR_ITS ---
[id number] Ordering provider: Sara Corral APRN History: . M54.2 - Cervicalgia . Comparison: None. FINDINGS: VERTEBRAL BODIES: Normal height and alignment. No visible fracture or subluxation. The dens is intact . Degenerative changes of the spine. DISK SPACES: Well maintained. Multilevel uncovertebral joint osteoarthritic changes. PARASPINOUS SOFT TISSUES: No prevertebral soft tissue swelling. IMPRESSION: No acute osseous abnormality cervical spine. Reviewed, dictated and finalized at location A.
== END ==
PROVIDERS: PCP Nurse Practitioner Family; Visit Provider Nurse Practitioner Family
DX: M54.2 Cervicalgia (principal)
CPT/HCPCS: 72040

== ENCOUNTER 2024-09-13 09:26 | Emergency (ER) | payer MEDICARE, SELFPAY ==
[2024-09-13] VITALS (16 sets, daily range): BP systolic 102–149; BP diastolic 43–76; PULSE 55–70; RESP 12–19; TEMP 36.4; O2SAT 94–99
--- NOTE | ~2024-09-13 | CT_ITS ---
EXAMINATION: CT brain wo con DATE: 09/13/2024 09:48 INDICATION: Stroke TECHNIQUE: Computed tomography (CT) of the head was performed without intravenous contrast. Sagittal and coronal reconstructions were performed. The mA was adjusted according to patient size. Iterative reconstruction technique was employed. The dose-length product was 605.33 mGy-cm. COMPARISON: head CT dated 02/12/22 FINDINGS: No acute intracranial hemorrhage, acute infarction or abnormal extra axial fluid collection. There is mild scattered white matter hypoattenuation consistent with chronic small vessel ischemic disease. Ventricles are normal and symmetric. No mass/mass effect. Changes of bilateral intraocular lens repla cement. The orbits and mastoid air cells are normal. Mild mucosal thickening in the left maxillary si nus. IMPRESSION: 1. Stable appearance of mild scattered white matter hypoattenuation consistent with chronic small ves jonny ischemic disease. No acute intracranial process. Reviewed, dictated and finalized at location B. IMPRESSION: 1. Stable appearance of mild scattered white matter hypoattenuation consistent with chronic small vessel ischemic disease. No acute intracranial process.
--- NOTE | ~2024-09-13 | XR_ITS ---
EXAMINATION: XR chest 1V portable DATE: 09/13/2024 10:30 INDICATION: Stroke TECHNIQUE: frontal view of the chest was obtained. COMPARISON: Chest radiograph dated 05/16/2022 FINDINGS: The lungs are clear with no focal airspace opacities, pulmonary edema, pleural effusion or pneumothor ax. The cardiomediastinal silhouette is normal. Visualized bones and soft tissues are unremarkable. IMPRESSION: 1. No acute cardiopulmonary disease. Reviewed, dictated and finalized at location B.
--- NOTE | ~2024-09-13 | CT_ITS ---
EXAMINATION: CTA BRAIN/CAROTID DATE: 09/13/2024 09:51 INDICATION: Stroke TECHNIQUE: Computed tomographic angiography (CTA) of the head and neck was performed with 100 mL Omni paque-350 intravenous contrast. Multiplanar reconstructions and maximum intensity projection 3D-recon structions of the carotid arteries and of the intracranial arteries were created by the technologist on a separate workstation. Automated exposure control and iterative reconstruction technique were emp loyed.The dose-length product was 984.89 mGy-cm. COMPARISON: None. FINDINGS: Carotid arteries: Nonhemodynamically significant atherosclerotic plaque and no dissection along the visualized portion of the aortic arch and the great vessels arising from the arch. The bilateral vertebral arteries are codominant. There is suspicion of a dissection in the left subclavian artery involving the origin of the left vertebral artery. Remainder of the bilateral vertebral arteries are unremarkable. There is 2 0% stenosis of the right carotid bulb relative to normal distal artery lumen diameter (NASCET criteri a). There is atherosclerotic plaque with 0% stenosis of the left carotid bulb relative to normal dist al artery lumen diameter. Intracranial arteries Vertebral arteries are codominant. Small amount of nonhemodynamically significant atherosclerotic dennis que at the bilateral carotid siphons. There is no hemodynamically significant stenosis in the vertebr al, basilar and internal carotid arteries. Both A1 and P1 segments are patent. There are also patent intercommunicating and bilateral posterior communicating arteries. There are no aneurysms identified. Cerebral arterial arborization appears symmetric. IMPRESSION: 1. 20% stenosis of the right carotid bulb relative to normal distal artery lumen diameter (NASCET cri teria). 2. 0% stenosis of the left carotid bulb relative to normal distal artery lumen diameter. 3. 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 4. Unremarkable cerebral CT angiogram with no hemodynamically significant stenosis, thrombosis or ane urysm. Reviewed, dictated and finalized at location B. IMPRESSION: 1. 20% stenosis of the right carotid bulb relative to normal distal artery lume n diameter (NASCET criteria). 2. 0% stenosis of the left carotid bulb relative to normal distal artery lumen diameter. 3. 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 4. Unremarkable cerebral CT angiogram with no hemodynamically significant steno sis, thrombosis or aneurysm.
--- NOTE | 2024-09-13 09:34 | ECG_ITS ---
Test Date: 2024-09-13 09:57:13 Measurements Intervals [place] Rate: 70 P: 73 TN: 209 QRS: 53 QRSD: 87 T: 44 QT: 399 QTc: 433 Interpretive Statements SINUS RHYTHM POSSIBLE LEFT ATRIAL ENLARGEMENT [-0.1mV P-WAVE IN V1/V2] SEPTAL MYOCARDIAL INFARCTION , PROBABLY OLD [40+ ms Q WAVE IN V1/V2] No previous ECG available for comparison Electronically Signed On 09-13-2024 18:02:25 CDT by Javan Barba
--- OUTSIDE RECORDS SUMMARY | 2024-09-13 09:37 | XMS_ITS | Referral Summary ---
Author Organization [facility] [address] Address [address] [place] [address] Care Team Providers Care Stock Puller Name Role Phone Sherif Anguiano MD Primary Care Prov ider Leonora Fierro MD Unavailable [phone] Gerard García MD PhD Unavailable [phone] Rolan Monzon MD Unavailable Jarvis Cano MD Unavailable Jordan Hernandez MD Unavailable Cesar Ahsraf MD Unavailable Sherif Navarro MD Unavailable [phone] Shauna Solomon MD Unavailable [phone] Wale Gutierrez MD Unavailable [phone] Encounters Date Type Department Care Team Description 09/13/2024 Telephone [facility] 2 Radiation Oncology [address] [place] [id number] Gemini Da Silva PA 09/06/2024 4:00 PM CDT Office Visit [facility] 2 Radiation Oncology [address] [place] [address] [phone] Gemini Da Silva, PA Malignant neoplasm of right upper lobe of lung (HCC) (Primary Dx); Personal history of radiation therapy 08/30/2024 10:05 AM CDT - 08/30/2024 11:59 PM CDT Hospital Encounter [facility] [address] [place] [address] Malignant neoplasm of right upper lobe of lung (HCC) Discharge Disposition: Discharge to home or self care 06/27/2024 9:45 AM CDT Office Visit [facility] [address] [place] [phone] Eric Jaramillo MD Obstructive sleep apnea (Primary Dx) from Last 3 Months Allergies Active Allergy Reactions Criticality Noted Date Comments Cilantro Vomiting Low 12/09/2019 Nitroglycerin Hypotension High 02/08/2020 Medications albuterol HFA (PROVENTIL HFA,VENTOLIN HFA,PROAIR HFA) 90 mcg/actuation inhaler Inhale 1 puff 2 (two) times a day Active multivitamin capsule Take 1 capsule by mouth daily Active biotin 5,000 mcg tablet,disinteg rating Take 2 tablets by mouth daily Active Atrovent HFA 17 mcg/actuation inhaler Inhale 1 puff 2 (two) times a day 2 Active ezetimibe (ZETIA) 10 mg tablet Take 1 tablet (10 mg total) by mouth daily 30 tablet 2 Active meclizine (ANTIVERT) 25 mg tablet TAKE 1 TABLET BY MOUTH FOUR TIMES DAILY NEEDED FOR DIZZINESS 4 Active acidophilus-pec tin, citrus 100 million cell-10 mg capsule Take 1 capsule by mouth daily Active docusate sodium (COLACE) 100 mg capsule Take 1 capsule (100 mg total) by mouth daily Active topiramate (TOPAMAX) 100 mg tablet Take 1 tablet (100 mg total) by mouth nightly 4 Active aspirin 81 mg enteric coated tablet Take 1 tablet (81 mg total) by mouth daily 30 tablet 11 4 09/22/19 25 Active B-complex with vitamin C (VITAMIN B COMPLEX WITH C ORAL) Take 1 tablet/chew tab by mouth daily Active nortriptyline (PAMELOR) 10 mg capsule TAKE 1 CAPSULE BY MOUTH EVERY DAY AT BEDTIME 4 Active losartan (COZAAR) 50 mg tablet Take 0.5 tablets (25 mg total) by mouth daily 45 tablet 3 4 02/04/20 25 Active nitroglycerin (NITROSTAT) 0.[address] 1 tablet (0.4 mg total) under the tongue every 5 (five) minutes as needed for chest pain May repeat dose q 5 min, up to 3 doses total 30 tablet 4 02/04/20 25 Active fluticasone-ume clidin-vilanter (TRELEGY ELLIPTA) 100-62.5-25 mcg inhaler Inhale 1 puff daily 30 each 11 4 Active ipratropium-alb uteroL (DUO-NEB) 0.5-2.5 mg/3 mL nebulizer solutionIndicat ions:Chronic obstructive pulmonary disease, unspecified COPD type (HCC) Take 3 mL by nebulization 3 (three) times a day 810 mL 3 5 Active metoprolol XL (TOPROL-XL) 25 mg extended release tablet TAKE 1 TABLET BY MOUTH DAILY 100 tablet 2 5 Active Active Problems Patient Care Coordination No te Formatting of this note migh t be different from the original. Referring provider: Dr. Gerard García Ms. Heather Solorzano is a 65-year-old with lung cancer. Patient was being followed for a lung nodule. On 02/18/2021 the patient underwent a chest CT without contrast which showed a stable 7mm right upper lobe nodule with central cavity superimposed centrilobular emphysema, consistent with known right upper lobe squamous cell carcinoma. Additional findings include stable less than 4 mm pulmonary nodules in the pulmonary apex and right lower lobes. On 03/04/2021 the patient underwent a CT-guided biopsy of the right upper lobe lung nodule. Final pathology showed squamous cell carcinoma. On 04/02/2021 the patient underwent a PET scan which showed the partially cavitary nodule in the right upper lobe measuring 1 x 0.8 cm with a maximum SUV of 7.4. There were no other metabolic activity nodules or masses. There is a small ground- glass density in the posterior right upper lobe there is no evidence of FDG avid thoracic lymphadenopathy. There was moderately FDG avid bilateral level II cervical lymph nodes. These are nonspecific. On 04/03/2021 the patient underwent pulmonary function testing On 11/23/2019 the patient underwent a transthoracic echocardiogram which showed an ejection fraction of 65-70% is well as grade 1 diastolic dysfunction. Patient is a former smoker who quit in 2016 and has an 80 pack year smoking history. Patient has a history of a STEMI s/p stent placement and is currently on Plavix. Patient presents today for further surgical evaluation. Problem Noted Date Diagnosed Date Acute blood loss anemia 05/19/2024 Blood loss anemia 05/19/2024 Influenza A 05/17/2024 Acute blood loss anemia (ABLA) 05/17/2024 Abdominal pain 05/15/2024 Hematochezia 05/15/2024 Migraine without aura and wi th status migrainosus, not intractable 01/26/2024 Migraine-cluster headache syndrome 01/26/2024 Upper extremity weakness 01/25/2024 Dizziness 01/25/2024 S/P PTCA (percutaneous transluminal coronary ang ioplasty) 06/08/2023 Statin intolerance 06/08/2023 Morbid (severe) obesity due to excess calories 0 06/08/2023 Mixed hyperlipidemia 10/01/2022 Assessment & Plan (10/01/2022 4:53 PM CDT): Impression: Chronic and stable. Plan: Continue Zetia Primary hypertension 10/01/2022 Assessment & Plan (10/01/2022 4:55 PM CDT): Impression: Patient has a history of hypertension however her blood pressures have been running low and she has been symptomatic. Patient complains of lightheadedness. Primary care providers currently adjusting blood pressure medications. Plan: Continue recommendations as per primary care provider. Generalized weakness 09/11/2022 Weakness 09/11/2022 Coronary artery disease invo lving [place] coronary artery of [place] heart without angina pectoris 09/11/2022 Obstructive sleep apnea 04/10/2022 Assessment & Plan (06/27/2024 9:47 AM CDT): The patient continues to benefit from the auto titrating CPAP unit with a range of 5-15 cm water pressure for ongoing symptoms of BRIAN. Her DME supplier is [employer]. She will follow up here in 1 year. Assessment & Plan (03/24/2024 10:17 AM ROLL TABLE OPERATOR): The patient continues to benefit from the auto titrating CPAP unit with a range of 5-15 cm water pressure but has an old CPAP unit. I will order a new auto titrating CPAP unit for her with a range of 5-15 cm water pressure through [employer]. She will follow up here in 3 months. I will have her sign a release to get the home sleep test that she had long ago either through her primary care physician's office or [employer]. Occlusion and stenosis of vertebral artery 03/14 Assessment & Plan (03/14/2022 6:11 PM ROLL TABLE OPERATOR): Per prior duplex performed at an outside institution there was no mention of either vertebral artery. Patient had a CT scan which suggested stenosis of the left vertebral artery. Will follow up with carotid duplex. Bilateral carotid artery stenosis 03/14/2022 Assessment & Plan (05/11/2024 4:06 PM ROLL TABLE OPERATOR): Patient with no obvious carotid, vertebral stenosis on most recent CTA. She is being followed with surveillance studies annually. Will repeat 1 more surveillance study in a year with a bilateral carotid artery duplex. If no significant stenosis seen may follow up in the office on as needed basis Assessment & Plan (04/13/2023 9:24 AM ROLL TABLE OPERATOR): Bilateral carotid stenosis asymptomatic and nonprogressive. Remains compliant with medications. Plan: Follow-up in 1 year for routine surveillance with a carotid duplex. Assessment & Plan (10/01/2022 4:52 PM CDT): Impression: Moderate internal carotid artery stenosis bilaterally seen on carotid duplex. Patient remains asymptomatic. Plan: Continue ongoing risk factor modifications. -follow-up in 6 months for re-evaluation with repeat carotid duplex. Assessment & Plan (03/28/2022 1:55 PM ROLL TABLE OPERATOR): Bilateral carotid duplex obtained for intermittent dizziness shows mild carotid stenosis both sides measuring 16-49% with velocities in the 80s. States her symptoms have gotten better since her blood pressure medications has been readjusted and her blood pressure is now much better. She continues to have the dizzy spells however they are not as severe and less frequent and not associated with any other neurological symptoms. Discussed the patient with Dr. Gisselle Navarro. Return in 6 months for routine surveillance with bilateral carotid duplex. Assessment & Plan (03/14/2022 6:10 PM ROLL TABLE OPERATOR): Per prior imaging from an outside institution patient has less than 50% stenosis bilateral internal carotid arteries. Will repeat carotid duplex also evaluate for vertebral flow. Follow-up 1-2 weeks after that study is performed. Diastolic dysfunction without heart failure 08/2021 Centrilobular emphysema 11/19/2021 Class 2 obesity due to exces s calories without serious comorbidity with body mass index (BMI) of 37.0 to 37.9 in adult 11/19/2021 Musculoskeletal chest pain 11/12/2021 Smoking greater than 40 pack years 10/15/2021 Personal history of radiation therapy 09/05/2021 Malignant neoplasm of right upper lobe of lung 0 03/21/2021 Cancer Staging:Clinical stage from 04/03/2021:Stage IA1(cT1a, cN0, cM0) - Signed by Wale Gutierrez MD on 04/03/2021 Pain of left hand 06/08/2017 Dyspnea on exertion Chronic obstructive pulmonary disease Assessment & Plan (03/14/2022 6:09 PM ROLL TABLE OPERATOR): COPD is chronic and controlled. Continue current medical therapy. Immunizations Immunization Administration Dates Next Due Influenza, Quadrivalent, Hig h Dose, Preservative Free, Intrr 02/19/2022,01/13/2020 Influenza, Unspecified 01/14/2024 Moderna SARS-CoV-2 Monovalen t Vaccination (12+ YRS) 04/14/2021,05/26/2020 Pneumococcal Conjugate Pcv20 11/01/2022,08/20/19 23,03/19/2022 ZOSTER Recombinant 10/29/2021,11/07/2020 Social History Tobacco Use Types Packs/Day Years Used Date Smoking Tobacco: Former Cigarettes 2 50 1 966 - 2016 Smokeless Tobacco: Never Tobacco Cessation:Counseling Given: Not Answered Alcohol Use Standard Drinks/Week Comments Never 0 (1 standard drink = 0.6 oz pur e alcohol) [facility] Utilities Answer Date Recorded In the past 12 months has th e electric, gas, oil, or water company threatened to shut off services in your home? No 05/17/2024 Social Connection and Isolat ion Panel [NHANES] Answer Date Recorded In a typical week, how many times do you talk on the phone with family, friends, or neighbors? More than three times a week 05/17/2024 How often do you get togethe r with friends or relatives? More than three times a week 05/17/2024 How often do you attend chur ch or muslim services? Never 05/17/2024 Do you belong to any clubs o r organizations such as mosque groups, unions, fraternal or athletic groups, or school groups? No 05/17/2024 How often do you attend meet ings of the clubs or organizations you belong to? Never 05/17/2024 Are you , , di vorced, , never , or living with a partner? 05/17/2024 AUDIT-C Answer Date Recorded Q1: How often do you have a drink containing alcohol? Never 05/23/2024 Q2: How many drinks containi ng alcohol do you have on a typical day when you are drinking? Patient does not drink Q3: How often do you have si x or more drinks on one occasion? Never 05/23/2024 Overall Financial Resource Strain (CARDIA) Answe r Date Recorded How hard is it for you to pa y for the very basics like food, housing, medical care, and heating? Not hard at all 05/17/2024 Hunger Vital Sign Answer Date Recorded Within the past 12 months, y ou worried that your food would run out before you got the money to buy more. Never true 05/18/19 25 Within the past 12 months, t he food you bought just didn't last and you didn't have money to get more. Never true 05/17/2024 PRAPARE - Transportation Answer Date Re corded In the past 12 months, has l ack of transportation kept you from medical appointments or from getting medications? No 06/2024 In the past 12 months, has l ack of transportation kept you from meetings, work, or from getting things needed for daily living? No 05/17/2024 Housing Stability Vital Sign Answer Alessandro e Recorded In the last 12 months, was t here a time when you were not able to pay the mortgage or rent on time? No 09/11/2022 Number of Places Lived in the Last Year Not on f ile 09/11/2022 In the last 12 months, was t here a time when you did not have a steady place to sleep or slept in a fdc (including now)? No 09/11/2022 Housing Stability Vital Sign Answer Alessandro e Recorded In the last 12 months, was t here a time when you were not able to pay the mortgage or rent on time? No 05/17/2024 In the past 12 months, how m any times have you moved where you were living? 0 05/17/2024 At any time in the past 12 m [facility], were you homeless or living in a fdc (including now)? No 05/17/2024 Personal Safety Answer Date Recorded Have you ever been in or are you currently in a harmful physical or emotional relationship or is someone making you feel afraid or unsafe? Denies 05/23/2024 Comments No Sex and Gender Information Value Date Recorded Sex Assigned at Not on file Legal Sex Female 12:30 AM ROLL TABLE OPERATOR Gender Identity Not on file Sexual Orientation Not on file Last Filed Vital Signs Vital Sign Reading Time Taken Comments Blood Pressure 97/50 09/06/2024 3:42 PM CDT Pulse 87 09/06/2024 3:42 PM CDT Temperature 36.6 C (97.9 F) 06/27/2024 9:30 AM CDT Respiratory Rate 18 06/27/2024 9:30 AM CDT Oxygen Saturation 95% 09/06/2024 3:42 PM CDT Inhaled Oxygen Concentration - - Weight 91.2 kg (201 lb) 09/06/2024 3:42 PM CDT Height 162.6 cm (5' 4) 06/27/2024 9:30 AM CDT Body Mass Index 34.5 06/27/2024 9:30 AM CDT Plan of Treatment Not on file Procedures Procedure Name Priority Date/Time Associated Diagnosis Comments CT CHEST WO CONTRAST Schedule Routine, Read Routine (OP Routine) 08/30/2024 10:18 AM CDT Malignant neoplasm of right upper lobe of lung (HCC) COLONOSCOPY 05/23/2024 11:54 AM CDT from Last 3 Months or Most Recently Relevant to Health Maintenance Results * CT Chest WO Contrast (08/30/2024 10:18 AM CDT) Anatomical Region Laterality Modality Body N/A Computed Tomogra phy 09/13/2024 8:26 AM CDT Narrative 09/13/2024 8:33 AM CDT EXAM DESCRIPTION: CT CHEST WO CONTRAST REASON FOR STUDY: Non-small cell lung cancer (NSCLC), non-metastatic, assess treatment response 3 month lung cancer f/u. No complaints. TECHNIQUE: CT scan of the chest performed without intravenous contrast using helical scanning technique. Reconstructed coronal and sagittal MPR images reviewed. All images stored on PACS. Automated exposure control was used as a dose optimization technique for this examination. COMPARISON: 05/15/2024. FINDINGS: The sensitivity for detection of solid visceral lesions is diminished without the use of intravenous contrast. LUNGS: Central airways are patent. Moderate emphysema. Area of ground-glass opacity and fibrosis anterior right upper lobe likely an area of post treatment change 4.6 x 3.5 cm (series 3, image 43), grossly unchanged as remeasured. There is a right lower lobe pulmonary nodule 0.6 cm (image 63) unchanged. There is a small nodule right upper lobe 0.4 cm (image 21) stable to decreased in size. There is a nodule in the lingula 0.5 cm (image 60) unchanged. No new pulmonary nodules or masses. PLEURA: No pleural effusion or pneumothorax. MEDIASTINUM/DERIC: No mediastinal or hilar mass. HEART: Heart size is normal. There is no pericardial effusion. CORONARY ARTERY CALCIFICATION: Coronary artery calcifications are seen. VASCULATURE: Thoracic aorta nonaneurysmal. The ascending thoracic aorta 3.1 cm, the descending thoracic aorta is 2.5 cm. AXILLA: No axillary lymphadenopathy. CHEST WALL: No chest wall mass or subcutaneous emphysema. HARDWARE/LINES/TUBES: None. UPPER ABDOMEN: In the included upper abdomen, no significant abnormalities are seen. MUSCULOSKELETAL: Bone windows demonstrate no acute or aggressive osseous abnormality. OTHER: No other significant abnormality. IMPRESSION: 1. Stable examination with no evidence of new metastatic disease within the chest. 2. Stable post treatment change anterior right upper lobe. 3. Previous pulmonary nodules unchanged. No new pulmonary nodules. 4. Emphysema. Recommend evaluation for annual lung cancer screening enrollment if the patient qualifies based on clinical factors and smoking history. 5. Coronary artery calcifications. THIS IS AN ELECTRONICALLY VERIFIED FINAL REPORT 09/13/2024 8:33 AM - Electronically signed by Jamison Lama M.D. CH: VITALY Report ID: [id number] Reading Location: [id number] Procedure Note Jamison Lama Jr., MD - 09/13/2024 EXAM DESCRIPTION: CT CHEST WO CONTRAST REASON FOR STUDY: Non-small cell lung cancer (NSCLC), non-metastatic,assess treatment response 3 month lung cancer f/u. No complaints. TECHNIQUE: CT scan of the chest performed without intravenous contrastusing helical scanning technique. Reconstructed coronal and sagittal MPR images reviewed. All images stored on PACS. Automated exposure control was usedas a dose optimization technique for this examination. COMPARISON: 05/15/2024. FINDINGS: The sensitivity for detection of solid visceral lesions is diminished without the use of intravenous contrast. LUNGS: Central airways are patent. Moderate emphysema. Area of ground-glass opacity and fibrosis anterior right upper lobe likely an areaof post treatment change 4.6 x 3.5 cm (series 3, image 43), grossly unchangedas remeasured. There is a right lower lobe pulmonary nodule 0.6 cm (image63) unchanged. There is a small nodule right upper lobe 0.4 cm (image 21)stable to decreased in size. There is a nodule in the lingula 0.5 cm (image 60) unchanged. No new pulmonary nodules or masses. PLEURA: No pleural effusion or pneumothorax. MEDIASTINUM/DERIC: No mediastinal or hilar mass. HEART: Heart size is normal. There is no pericardial effusion. CORONARY ARTERY CALCIFICATION: Coronary artery calcifications are seen. VASCULATURE: Thoracic aorta nonaneurysmal. The ascending thoracic aorta3.1 cm, the descending thoracic aorta is 2.5 cm. AXILLA: No axillary lymphadenopathy. CHEST WALL: No chest wall mass or subcutaneous emphysema. HARDWARE/LINES/TUBES: None. UPPER ABDOMEN: In the included upper abdomen, no significantabnormalities are seen. MUSCULOSKELETAL: Bone windows demonstrate no acute or aggressive osseous abnormality. OTHER: No other significant abnormality. IMPRESSION: 1. Stable examination with no evidence of new metastatic disease withinthe chest. 2. Stable post treatment change anterior right upper lobe. 3. Previous pulmonary nodules unchanged. No new pulmonary nodules. 4. Emphysema. Recommend evaluation for annual lung cancer screening enrollment if the patient qualifies based on clinical factors and smoking history. 5. Coronary artery calcifications. THIS IS AN ELECTRONICALLY VERIFIED FINAL REPORT 09/13/2024 8:33 AM - Electronically signed by Jamison Lama M.D. CH: VITALY Report ID: [id number] Reading Location: [place] [address] [facility] [place] PROCEDURES Final Res ult * Colonoscopy (05/23/2024 11:54 AM CDT) Anatomical Region Laterality Modality Other Narrative Procedure Note Jaime Nolen MD - 05/23/2024 11:[address] [facility] GI ENDOSCOPY Patient Name: Heather Solorzano Procedure Date: 05/23/2024 11:54 AM Date of : 1955 Admit Type: Outpatient Age: 68 Gender: Female Attending MD: Jaime Nolen M.D. Room: [facility] ENDOSCOPY ROOM 06 Note Status: Finalized Procedure: Colonoscopy Indications: Rectal bleeding Normocytic anemia Average risk Referring MD: Providers: Jaime Nolen M.D. Medicines: See the Anesthesia note for documentation of the administered medications Complications: No immediate complications. Estimated Blood Loss: Estimated blood loss was minimal. Procedure: Pre-Anesthesia Assessment: - Prior to the procedure, a History and Physicalwas performed, and patient medications and allergieswere reviewed. The risks and benefits of the procedureand the sedation options and risks were discussed withthe patient. All questions were answered and informed consent was obtained. Patient identification and proposed procedure were verified. After reviewingthe risks and benefits, the patient was deemed in satisfactory condition to undergo the procedure.The anesthesia plan was to use monitored anesthesiacare (MAC). Immediately prior to administration of medications, the patient was re-assessed foradequacy to receive sedatives. The heart rate, respiratory rate, oxygen saturations, blood pressure, adequacyof pulmonary ventilation, and response to care were monitored throughout the procedure. The physical status of the patient was re-assessed after the procedure. The benefits, risks and alternatives of theprocedure and sedation were discussed and informed consentwas obtained. All questions were answered. Please referto the signed informed consent document in the medical record. The scope was passed under direct vision.The Colonoscope was introduced through the anus and advanced to the terminal ileum, with identificationof the appendiceal orifice and IC valve. Thecolonoscopy was performed without difficulty. The patient tolerated the procedure well. The quality of thebowel preparation was good. Scope insertion time was 2 minutes. Scope withdrawal time was 28 minutes. Prep was administered in a split dose. Findings: The perianal and digital rectal examinations were normal. The visualized terminal ileum appeared normal. Two sessile polyps were found in the cecum. The polyps were 5 - 7 mmin size. These polyps were removed with a cold snare. Resection and retrieval were complete. Two sessile polyps were found in the ascending colon. The polyps were6 - 12 mm in size. These polyps were removed with a cold snare.Resection (larger polyp resected piecemeal) and retrieval were complete. Two sessile polyps were found in the recto-sigmoid colon. The polyps were 6 - 10 mm in size. These polyps were removed with a cold snare. Resection and retrieval were complete. There was mild oozing from the larger colon polyp resection site afterwards s/p successfulhemostasis with deployment of a single clip. Diverticula (mild) were found in the sigmoid colon. External and internal hemorrhoids were found. The hemorrhoids werelarge. Impression: - The examined portion of the terminal ileum was normal. - Two 5 - 7 mm polyps in the cecum, removed with a cold snare. Resected and retrieved. - Two 6 - 12 mm polyps in the ascending colon,removed with a cold snare. Resected and retrieved. - Two 6 - 10 mm polyps at the recto-sigmoid colon, removed with a cold snare. Resected and retrieved. There was mild oozing from the larger colon polyp resection site afterwards s/p successful hemostasis with deployment of a single clip. - Diverticulosis in the sigmoid colon. - External and internal hemorrhoids. Recommendation: - Await pathology results. - Resume previous diet today. - Discharge patient to home. - Rectal bleeding with associated anemia likely dueto large hemorrhoids - increase fiber, hydration,avoid from straining. If progressive/persistent, then see Colorectal Surgery in consideration of definitive management. - Patient has a contact number available for emergencies. The signs and symptoms of potential delayed complications were discussed with thepatient. Return to normal activities tomorrow. Written discharge instructions were provided to thepatient. - I would be happy to see you in my GI clinic ifyou have further questions or concerns or if symptoms progress Jaime Nolen M.D. 05/23/2024 12:40:49 PM Number of Addenda: 0 Note Initiated On: 05/23/2024 11:54 AM Recognized by the [place] for promoting quality in endoscopy Jaime Nolen MD ENDOSCOPY PROCEDURES Sarah l Result from Last 3 Months or Most Recently Relevant to Health Maintenance Insurance [employer] MEDICARE ADVANTAGE Advance Directives For more information, please contact: [phone] Documents on File Type Date Recorded Patient Health Insurance Agent Expl anation ADVANCE DIRECTIVE 01/26/2024 11:11 AM [facility] er of Typesetting Supervisor-Medical * Full Code (Latest Code Status on File) Date Activated Date Inactivated Comments 05/15/2024 2:25 PM 05/19/2024 3:49 PM * Full Code Date Activated Date Inactivated Comments 01/25/2024 2:58 PM 01/28/2024 4:22 PM * Full Code Date Activated Date Inactivated Comments 09/11/2022 12:01 AM 09/12/2022 12:16 AM * Full Code Date Activated Date Inactivated Comments 11/13/2021 12:08 AM 11/13/2021 7:59 PM Care Teams Stock Puller Relationship Specialty Start Date End Date Sherif Anguiano MD [address] [place] [address] PCP - General Family Medicine 10/04/18 Leonora Fierro MD [address] [facility] 202 [place], [place] [id number] Referring Physician Pulmonary Disease 03/21/21 eGrard García MD PhD 14[address] [facility], [facility] 180 [place] [address] Medical Oncologist/Hematologis t Medical Oncology 03/21/21 [place] [place] [address] Consulting Physician Otolaryngology 04/03/21 Jarvis Cano [place] [address] Surgeon Thoracic Surgery 05/01/21 Jordan Hernandez MD [address] [place] [address] Consulting Physician Cardiology 11/13/21 Cesar Ashraf MD [address] [place] [address] Surgeon Pulmonary Disease 02/11/22 Sherif Navarro MD [address] [facility] [address] [place] [employer] [facility] [address] [address] Surgeon Vascular Surgery 03/04/22 Shauna Solomon MD [address] [facility] [address] [place] [employer] [facility] [address] [address] Consulting Physician Interventional Cardiology 09/11/22 Wale Gutierrez MD [address] [place] [address] Radiation Oncologist Radiation Oncology 12/10/23
--- OUTSIDE RECORDS SUMMARY | 2024-09-13 09:37 | XMS_ITS | Encounter Summary ---
Author Organization [facility] Healthcare Address [address] [place] [address] Care Team Providers Care Chef German Name Role Phone Sherif Anguiano MD Primary Care Prov ider Leonora Fierro MD Unavailable [phone] Gerard García MD PhD Unavailable [phone] Rolan Monzon MD Unavailable [phone] Wale Gutierrez MD Unavailable [phone] Jarvis Cano MD Unavailable Jordan Hernandez MD Unavailable Cesar Ashraf MD Unavailable [phone] Sherif Navarro MD Unavailable [phone] Shauna Solomon MD Unavailable [phone] Wale Gutierrez MD Unavailable [phone] Encounter Details Date Type Department Care Team (Late st Contact Info) Description 10/04/2018 Orders Only [facility] Health Information Management [address] [place] [address] Scanning, Provider Social History Tobacco Use Types Packs/Day Years Used Date Smoking Tobacco: Every Day Comments Unknown Sex and Gender Information Value Date Recorded Sex Assigned at Not on file Legal Sex Female 12:30 AM CROTCH BREAKER Gender Identity Not on file Sexual Orientation Not on file documented as of this encounter Plan of Treatment Not on file documented as of this encounter Procedures Procedure Name Priority Date/Time Associated Diagnosis Comments SCAN - RADIOLOGY/IMAGING 10/04/2018 documented in this encounter Results * SCAN - RADIOLOGY/IMAGING (10/04/2018) Anatomical Region Laterality Modality Other us Provider Scanning Final Result documented in this encounter Visit Diagnoses Not on filedocumented in this encounter Additional Health Concerns Infection Onset Date Last Indicated Resolved Time COVID: Suspected 11/12/2021 11/12/2021 11/12/2021 6:30 PM CDT COVID: Suspected 05/15/2024 05/15/2024 05/15/2024 9:41 AM CROTCH BREAKER Influenza, adult 05/15/2024 05/15/2024 05/22/2024 3:06 AM CDT documented as of this encounter Care Teams Chef German Relationship Specialty Start Date End Date Sherif Anguiano MD [address] [place] [address] PCP - General Family Medicine 10/04/18 Leonora Fierro MD [address] [place], [place] [id number] Referring Physician Pulmonary Disease 03/21/21 Gerard García MD PhD [facility] [place]8 [facility], [address] [place] [address] Medical Oncologist/Hematologis t Medical Oncology 03/21/21 [place] [address] Consulting Physician Otolaryngology 04/03/21 [place] [address] Radiation Oncologist Radiation Oncology 04/03/21 Jarvis Cano MD [address] [place] [address] Surgeon Thoracic Surgery 05/01/21 Jordan Hernandez MD [address] [facility] [address] [place] [address] Consulting Physician Cardiology 11/13/21 Cesar Ashraf MD [address] [place] [address] Surgeon Pulmonary Disease 02/11/22 Sherif Navarro MD [address] [facility] [address] [place] [employer] [facility] [employer] [facility] [place] [address] [place] [address] Surgeon Vascular Surgery 03/04/22 Shauna Solomon MD [address] [facility] [address] [place] [address] [place] [address] [place] [address] Consulting Physician Interventional Cardiology 09/11/22 Wale Gutierrez MD [address] [place] [address] Radiation Oncologist Radiation Oncology 12/10/23 documented as of this encounter
--- OUTSIDE RECORDS SUMMARY | 2024-09-13 09:37 | XMS_ITS | Clinical Summary ---
Author Organization [facility] [address] Address [address] [place] [address] Care Team Providers Care Production Boring Machine Operator Name Role Phone Sherif Anguiano MD Primary Care Prov ider Leonora Fierro MD Unavailable [phone] Gerard García MD PhD Unavailable Rolan Monzon MD Unavailable [phone] Jarvis Cano MD Unavailable Jordan Hernandez MD Unavailable Cesar Ashraf MD Unavailable Sherif Navarro MD Unavailable [phone] Shauna Solomon MD Unavailable [phone] Wale Gutierrez MD Unavailable [phone] Allergies Active Allergy Reactions Criticality Noted Date [...] Weakness 09/11/2022 Coronary artery disease invo lving hopi coronary artery of hopi heart without angina pectoris 09/11/2022 Obstructive sleep apnea 04/10/2022 Assessment & Plan (06/27/2024 9:47 AM CDT): The patient continues to benefit from the auto titrating CPAP unit with a range of 5-15 cm water pressure for ongoing symptoms of BRIAN. Her DME supplier is [employer]. She will follow up here in 1 year. Assessment & Plan (03/24/2024 10:17 AM STAGE ELECTRICIAN): The patient continues to benefit from the auto titrating CPAP unit with a range of 5-15 cm water pressure but has an old CPAP unit. I will order a new auto titrating CPAP unit for her with a range of 5-15 cm water pressure through [employer]. She will follow up here in 3 months. I will have her sign a release to get the home sleep test that she had long ago either through her primary care physician's office or [facility]. Occlusion and stenosis of vertebral artery 03/14 Assessment & Plan (03/14/2022 6:11 PM STAGE ELECTRICIAN): Per prior duplex performed at an outside institution there was no mention of either vertebral artery. Patient had a CT scan which suggested stenosis of the left vertebral artery. Will follow up with carotid duplex. Bilateral carotid artery stenosis 03/14/2022 Assessment & Plan (05/11/2024 4:06 PM STAGE ELECTRICIAN): Patient with no obvious carotid, vertebral stenosis on most recent CTA. She is being followed with surveillance studies annually. Will repeat 1 more surveillance study in a year with a bilateral carotid artery duplex. If no significant stenosis seen may follow up in the office on as needed basis Assessment & Plan (04/13/2023 9:24 AM STAGE ELECTRICIAN): Bilateral carotid stenosis asymptomatic and nonprogressive. Remains [...] duplex. Assessment & Plan (03/28/2022 1:55 PM STAGE ELECTRICIAN): Bilateral carotid duplex obtained for intermittent dizziness [...] duplex. Assessment & Plan (03/14/2022 6:10 PM STAGE ELECTRICIAN): Per prior imaging from an outside institution [...] disease Assessment & Plan (03/14/2022 6:09 PM STAGE ELECTRICIAN): COPD is chronic and controlled. Continue current medical therapy. Encounters Date Type Department Care Team Description 09/13/2024 Telephone [facility] 2 Radiation Oncology [address] [place] [address] Gemini Da Silva PA 09/06/2024 4:00 PM CDT Office Visit [facility] 2 Radiation Oncology [address] [place] [address] Gemini Da Silva PA Malignant neoplasm of right upper lobe of lung (HCC) (Primary Dx); Personal history of radiation therapy 08/30/2024 10:05 AM CDT - 08/30/2024 11:59 PM CDT Hospital Encounter [facility] [address] [place] [address] Malignant neoplasm of right upper lobe of lung (HCC) Discharge Disposition: Discharge to home or self care 06/27/2024 9:45 AM CDT Office Visit [facility] Pulmonary [address] [place] [phone] Eric Jaramillo MD Obstructive sleep apnea (Primary Dx) from Last 3 Months Immunizations Immunization Administration Dates Next Due Influenza, Quadrivalent, Hig h Dose, Preservative Free, Intrr 02/19/2022,01/13/2020 Influenza, Unspecified 01/14/2024 Moderna SARS-CoV-2 Monovalen t Vaccination (12+ YRS) 04/14/2021,05/26/2020 Pneumococcal Conjugate Pcv20 11/01/2022,08/20/19 23,03/19/2022 ZOSTER Recombinant 10/29/2021,11/07/2020 Surgical History Surgery Date Site/Laterality Comments CORONARY ANGIOPLASTY CORONARY ANGIOPLASTY WITH STENT PLACEMENT 11/23/2019 OOPHORECTOMY HYSTERECTOMY SECTION 1974 COLONOSCOPY Medical History Medical History Date Comments COPD (chronic obstructive pulmonary disease) (HC C) Hypertension Coronary artery disease STEMI involving right coronary artery (HCC) 11/2019 Osteoporosis Sinusitis Tinnitus Nasal congestion Lung cancer (HCC) Hyperlipidemia Migraine Chest pain Chronic constipation Colon polyp Stroke (HCC) no residual Family History Medical History Relation Name Comments Heart attack Father Aneurysm Maternal Grandfather COPD Maternal Grandmother Lung cancer Mother Heart attack Paternal Grandfather Relation Name Status Comments Father Maternal Grandfather Maternal Grandmother Mother Paternal Grandfather Social History Tobacco Use Types Packs/Day Years Used Date Smoking Tobacco: Former Cigarettes 2 50 1 966 - 2016 Smokeless Tobacco: Never Tobacco Cessation:Counseling Given: Not Answered Alcohol Use Standard Drinks/Week Comments Never 0 (1 standard drink = 0.6 oz pur e alcohol) [facility] Utilities Answer Date Recorded In the [...] often do you attend chur ch or shinto services? Never 05/17/2024 Do you belong to any clubs o r organizations such as sikhism groups, unions, fraternal or athletic groups, or [...] place to sleep or slept in a long-term (including now)? No 09/11/2022 Housing Stability Vital Sign Answer Alessandro e Recorded In the last 12 months, was t here a time when you were not able to pay the mortgage or rent on time? No 05/17/2024 In the past 12 months, how m any times have you moved where you were living? 0 05/17/2024 At any time in the past 12 m [facility], were you homeless or living in a long-term (including now)? No 05/17/2024 Personal Safety Answer Date Recorded Have you ever been in or are you currently in a harmful physical or emotional relationship or is someone making you feel afraid or unsafe? Denies 05/23/2024 Comments No Sex and Gender Information Value Date Recorded Sex Assigned at Not on file Legal Sex Female 12:30 AM STAGE ELECTRICIAN Gender Identity Not on file Sexual Orientation Not on file Obstetrics History Last Filed Vital Signs Vital Sign Reading [...] 06/27/2024 9:30 AM CDT Plan of Treatment Health Maintenance Due Date Last Done Comments Breast Cancer Screening-Mammogram 1955 Depression Screening 1955 Hepatitis C Screening 1955 Osteoporosis Screening-Bone Density Scan 1955 DTaP/Tdap/Td Vaccine (1 - Tdap) 1965 Hepatitis B Screening 1972 Well Visit 65+ 06/13/2019 Covid-19 Vaccine (5 - 2023-2 5 season) 2024 11/25/2023, 04/14/2021, 05/26/2020, Additional history exists Influenza Vaccine (#1) 2024 4, 11/25/2023, 02/19/2022, Additional history exists Fall Risk Assessment 05/18/2025 05/18/2024, 12/09/19 Colon Cancer Screening-Colonoscopy 05/23/2034 05/23/2024 Zoster Vaccine Completed 10/29/2021, 11/07/2020 Pneumococcal vaccine 65+ Completed 024, 11/01/2022, 08/19/2022, Additional history exists Colon Cancer Screening-CT Colonography Discontinued 05/23/2024 Colon Cancer Screening-DNA Stool Discontinued 05/24/19 Colon Cancer Screening-FIT Discontinued 05/23/2024 Colon Cancer Screening-Sigmoidoscopy Discontinued 05/23/2024 Procedures Procedure Name Priority Date/Time Associated Diagnosis [...] Jamison Lama M.D. CH: VITALY Report ID: [id number] Reading Location: [place] [address] Procedure Note Jamison Lama Jr., MD - [...] Jamison Lama M.D. CH: VITALY Report ID: [id number] Reading Location: [id number] us Gemini CASTRO IM CT PROCEDURES Final Res ult * Colonoscopy (05/23/2024 11:54 AM CDT) Anatomical Region Laterality Modality Other Narrative Procedure Note Jaime Nolen MD - 05/23/2024 11:54 AM CDT [facility] GI ENDOSCOPY Patient Name: Heather Solorzano Procedure Date: 05/23/2024 11:54 AM Date of : 1955 Admit Type: Outpatient Age: 68 Gender: Female Attending MD: Jaime Nolen M.D. Room: [facility] ENDOSCOPY ROOM 06 Note Status: [...] On: 05/23/2024 11:54 AM Recognized by the [place] [employer] for promoting quality in endoscopy us Jaime Nolen MD ENDOSCOPY PROCEDURES Sarah l Result from Last 3 Months or Most Recently Relevant to Health Maintenance Insurance [facility] MEDICARE Address: [address] [place] [address] [facility] MEDIC[facility] Address: [address] [place] [address] Advance Directives For more information, please contact: [phone] Documents on File Type Date Recorded Patient Deputy Register Of Deeds Expl anation ADVANCE DIRECTIVE 01/26/2024 11:11 AM Pow er of Full Stack Python Developer-Medical * Full Code (Latest Code Status on File) Date Activated Date Inactivated Comments 05/15/2024 2:25 PM 05/19/2024 3:49 PM * Full Code Date Activated Date Inactivated Comments 01/25/2024 2:58 PM 01/28/2024 4:22 PM * Full Code Date Activated Date Inactivated Comments 09/11/2022 12:01 AM 09/12/2022 12:16 AM * Full Code Date Activated Date Inactivated Comments 11/13/2021 12:08 AM 11/13/2021 7:59 PM Care Teams Production Boring Machine Operator Relationship Specialty Start Date End Date Sherif Anguiano MD [address] [place] [address] PCP - General Family Medicine 10/04/18 Leonora Fierro MD [address] [facility] 202 [place], [place] [address] Referring Physician Pulmonary Disease 03/21/21 Gerard García MD PhD 1418 [facility] MEDICAL ON[facility]OGY, [facility] 180 [place], [place] [id number] Medical Oncologist/Hematologis t Medical Oncology 03/21/21 Rolan Monzon MD [address] [place] [address] Consulting Physician Otolaryngology 04/03/21 Jarvis Cano MD [address] [place] [address] Surgeon Thoracic Surgery 05/01/21 Jordan Hernandez MD [address] [facility] C [facility] 2310 [facility] C, [facility] [address] [place] [address] Consulting Physician Cardiology 11/13/21 Cesar Ashraf MD [address] [facility] [address] [place] [address] Surgeon Pulmonary Disease 02/11/22 Sherif Navarro MD [address] [facility] [address] [place] [facility] [address] [address] Surgeon Vascular Surgery 03/04/22 Shauna Solomon MD [address] [facility] [address] [place] [facility] [address] [address] Consulting Physician Interventional Cardiology 09/11/22 Wale Gutierrez MD [address] [place] [id number] Radiation Oncologist Radiation Oncology 12/10/23
--- OUTSIDE RECORDS SUMMARY | 2024-09-13 09:37 | XMS_ITS ---
Author Organization [facility] [address] Address [address] [place] [address] Care Team Providers Care Rotary Cutter Name Role Phone Sherif Anguiano MD Primary Care Prov ider Leonora Fierro MD Unavailable [phone] Gerard García MD PhD Unavailable Rolan Monzon MD Unavailable [phone] Jarvis Cano MD Unavailable Jordan Hernandez MD Unavailable Cesar Ashraf MD Unavailable Sherif Navarro MD Unavailable [phone] Shauna Solomon MD Unavailable [phone] Wale Gutierrez MD Unavailable [phone] Active Problems Patient Care Coordination No te [...] is a former smoker who quit in 2015 and has an 80 pack year smoking [...] Weakness 09/11/2022 Coronary artery disease invo lving lytton coronary artery of lytton heart without angina pectoris 09/11/2022 Obstructive sleep apnea 04/10/2022 Assessment & Plan (06/27/2024 9:47 AM CDT): The patient continues to benefit from the auto titrating CPAP unit with a range of 5-15 cm water pressure for ongoing symptoms of BRIAN. Her DME supplier is [employer]. She will follow up here in 1 year. Assessment & Plan (03/24/2024 10:17 AM LEADED GLASS INSTALLER): The patient continues to benefit from the auto titrating CPAP unit with a range of 5-15 cm water pressure but has an old CPAP unit. I will order a new auto titrating CPAP unit for her with a range of 5-15 cm water pressure through [employer]. She will follow up here in 3 months. I will have her sign a release to get the home sleep test that she had long ago either through her primary care physician's office or [employer]. Occlusion and stenosis of vertebral artery 03/14 Assessment & Plan (03/14/2022 6:11 PM LEADED GLASS INSTALLER): Per prior duplex performed at an outside institution there was no mention of either vertebral artery. Patient had a CT scan which suggested stenosis of the left vertebral artery. Will follow up with carotid duplex. Bilateral carotid artery stenosis 03/14/2022 Assessment & Plan (05/11/2024 4:06 PM LEADED GLASS INSTALLER): Patient with no obvious carotid, vertebral stenosis on most recent CTA. She is being followed with surveillance studies annually. Will repeat 1 more surveillance study in a year with a bilateral carotid artery duplex. If no significant stenosis seen may follow up in the office on as needed basis Assessment & Plan (04/13/2023 9:24 AM LEADED GLASS INSTALLER): Bilateral carotid stenosis asymptomatic and nonprogressive. Remains [...] duplex. Assessment & Plan (03/28/2022 1:55 PM LEADED GLASS INSTALLER): Bilateral carotid duplex obtained for intermittent dizziness [...] duplex. Assessment & Plan (03/14/2022 6:10 PM LEADED GLASS INSTALLER): Per prior imaging from an outside institution [...] disease Assessment & Plan (03/14/2022 6:09 PM LEADED GLASS INSTALLER): COPD is chronic and controlled. Continue current medical therapy. Current Treatment and Therapy Plans No current plan information found. Past Treatment and Therapy Plans No past plan information found. Radiation Treatments * Course C1 R LUNG 202106/03/2021 - 06/07/2021 Treatment Period Energy Fraction Dose Fractions Total Dose Plans Planned SBRT_RUL LUNG 06/03/2021 - 06/07/2021 1,800 3 / 5,400 Reference Points Delivered lung dpv 06/03/2021 - 06/07/2021 5,400
[2024-09-13 09:52] LABS: Estimated CRCL calculation 57 ml/min; Estimated Glomerular Filt Rate > 60
--- NOTE | 2024-09-13 09:55 | ED_ITS ---
HPI - Neuro Symptoms/Deficit General Chief Complaint: Neuro Symptoms/Deficit Stated Complaint: I think I'm having a stroke. Time Seen by Provider: 09/13/24 09:30 History of Present Illness HPI Narrative: Patient is a 69-year-old female who presents ER with concerns for CVA. She was driving her car when she began to feel tingling to her right face and tongue and looked in the rearview mirror and felt like her face was drooping. She also thought she had a little tingling in her right arm. Symptoms have improved. No history of CVA. She is not on any blood thinning medications. She does take Plavix. No history of CVA. She has had cancer in the past. Related Data Home Medications ?Medication ?Instructions ?Recorded ?Confirmed ?Last Taken ?Type biotin 5,000 mcg disintegrating See Rx Instructions PO DAILY 05/19/22 09/06/24 Unknown History tablet herbal drugs tablet PO 05/19/22 09/06/24 Unknown History lactobacillus combination no.4 3 3,000 mmu cells PO DAILY 05/19/22 09/06/24 Unknown History billion cell capsule (Probiotic) magnesium 250 mg tablet 250 mg PO DAILY 05/19/22 09/06/24 Unknown History multivitamin 1 tablet PO DAILY 05/19/22 09/06/24 Unknown History nhnavaeo-culrzq-tvq-snl-rba-ffpn-horse tablet PO 05/19/22 09/06/24 Unknown History 100 mg-100 mg-100 mg-125 mg tab vitamin B12 2,500 mcg-folic acid tablet PO 05/19/22 09/06/24 Unknown History 400 mcg disintegrating tablet vitamin D3 125 mcg (5,000 1 tablet PO DAILY 05/19/22 09/06/24 Unknown History unit)-folic acid 1 mg tablet metoprolol tartrate 25 mg tablet 25 mg PO DAILY 02/26/23 09/06/24 Unknown History aspirin 81 mg tablet,delayed 81 mg PO DAILY 03/19/23 09/06/24 Unknown History release Allergies Allergy/AdvReac Type Severity Reaction Status Date / Time CILANTRO Allergy Vomiting Verified 09/13/24 09:56 lisinopril AdvReac Mild Cough Verified 09/13/24 09:56 ciprofloxacin (From Cipro) AdvReac Unknown Rash Verified 09/13/24 09:56 Penicillins AdvReac Unknown Rash Verified 09/13/24 09:56 propranolol AdvReac Unknown Ulcer Verified 09/13/24 10:37 trouble nitroglycerin AdvReac Hypotension Verified 09/13/24 09:56 Review of Systems 2 Review of Systems: All systems reviewed & are unremarkable except as noted in HPI and below Constitutional: Constitutional: Reports no additional constitutional complaints ENT: Reports system reviewed and no additional complaints, except as documented Cardiovascular: Cardiovascular: Reports no additional cardiovascular complaints Respiratory: Respiratory: Reports no additional respiratory complaints Gastrointestinal: Gastrointestinal: Reports no additional gastrointestinal complaints Musculoskeletal: Musculoskeletal: Reports no additional musculoskeletal complaints Integumentary/Breasts: Skin/Breast: Reports system reviewed and no additional complaints, except as docu Neurologic: Reports system reviewed and no additional complaints, except as documented [facility] Past Medical History Medical History (Updated 09/13/24 @ 15:43 by Jacinto Hubbard MD) GERD (gastroesophageal reflux disease) History of ST elevation myocardial infarction (STEMI) History of lung cancer History of CVA (cerebrovascular accident) Hyperlipidemia History of trigger finger (~01/2017) right ESR raised Obstructive sleep apnea Muscle cramps (~12/2018) RT lower extremity Inflammatory arthritis COPD (chronic obstructive pulmonary disease) Surgical History Surgical History S/P angioplasty with stent NM with stents placed x2 2020 History of carpal tunnel release (~08/2016) left History of carpal tunnel release (~07/2016) Right H/O: hysterectomy Family History Family History Mother Lung cancer Grandparent COPD (chronic obstructive pulmonary disease) Father Acute myocardial infarction Lung cancer Grandparent Congestive heart failure Social History Social History Social History: Caffeine-daily Smoking packs per day: 2 Smoking cigarettes per day: 40.0 Years smoked: 30 Smoking pack-years: 60.00 Smoking status: Former smoker Tobacco type: cigarettes Second hand tobacco smoke exposure: No Smoking end date: 03/16/16 Alcohol intake: never Substance use: never Substance use type: does not use Lack of Transportation: No Lack of Food: Never True Current Housing: I Have Housing Concerned About Future Housing: No Difficulty Paying Gas/Electric Bills: No Difficulty Paying for Meds: No Currently Unemployed: No Education: High School Diploma/GED Difficulty w/ Childcare or Family Care: No Living arrangements: alone Occupation/Education: occupation Gender identity (if verbalized by the patient): Female Sexual Orientation (if Verbalized by the Patient): Straight or Heterosexual Spiritual care concerns: No Agree to blood products: Yes Exam 2 Narrative: GENERAL: Anxious-appearing, well-nourished, and in no acute distress. HEAD: Normocephalic, atraumatic. EYES: PERRL and EOMI. ENT: Mucous membranes moist. Normal appearing posterior oropharynx without angioedema of the tongue/uvula. NECK: Supple. CHEST: Clear to auscultation. No respiratory distress. HEART: Regular rate and rhythm. Normal peripheral pulses. ABDOMEN: Soft, nontender, nondistended. EXTREMITIES: Normal range of motion. No edema. SKIN: Warm, dry, no rash. NEURO: No focal deficits. See NIH stroke scale. No upper/lower extremity drift. No discernible sharp touch deficit. No facial droop. Normal hzlbbq-cf-kqaj testing and zyuh-mj-sxot testing. No dysarthria or expressive aphasia. Sharp touch intact in face/arm/leg. Alert and oriented x3. PSYCH: Appropriately anxious given situation. Course Course Emergency Course: 1022: Patient informed of imaging results. 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 Will contact [facility]. Patient reports that last night she had sudden onset dizziness that was atypical for her. No dizziness right now. Denies any trauma or neck manipulation. 1030: Spoke with Dr. Wood here at [facility]. Recommends oral anti-platelet therapy with aspirin and Plavix. Discussed this with the patient. She did take her Plavix this morning and a baby aspirin so we will give her a full-dose aspirin. She has mild headache and will be given Tylenol. 1540: Patient now has a bed at [facility] and we will arrange transport. Chart review shows that she had a CTA of the head and neck 01/2024, and there is no evidence of dissection that time. She was being evaluated for subclavian steal. Vital Signs Vital signs: Vital Signs Temperature 97.6 F 09/13/24 09:33 Pulse Rate 62 09/13/24 09:33 Respiratory Rate 18 09/13/24 09:33 Blood Pressure 144/67 H 09/13/24 09:33 Pulse Oximetry 95 09/13/24 09:33 Oxygen Delivery Room Air 09/13/24 09:33 Temperature 97.6 F 09/13/24 09:33 Pulse Rate 61 09/13/24 16:00 Respiratory Rate 15 09/13/24 16:00 Blood Pressure 134/55 L 09/13/24 16:00 Pulse Oximetry 99 09/13/24 16:00 Oxygen Delivery Room Air 09/13/24 09:33 MDM - Neuro Symptoms/Deficit Lab Data 09/13/24 09:43 09/13/24 09:45 Labs: Lab Results 09/13/24 09/13/24 09/13/24 Range/Units 09:40 09:43 09:45 WBC 7.6 (4.5-10.0) K/mm3 RBC 4.87 (4.2-5.4) M/mm3 Hgb 12.6 (12.0-15.0) g/dL Hct 40.0 (37.0-47.0) % MCV 82.1 (80-100) fl MCH 25.9 L (26-34) pg MCHC 31.5 L (32-36) g/dl RDW 14.6 H (11.5-14.5) % Plt Count 378 H (150-375) k/mm3 MPV 9.9 (7.4-10.4) fl Immature Gran % (Auto) 0.3 (0-0.5) % Neut % (Auto) 60.3 (45.5-73.1) % Lymph % (Auto) 29.4 (18.3-44.2) % [place] % (Auto) 7.1 (2.6-8.5) % Eos % (Auto) 2.2 (0-4.4) % Baso % (Auto) 0.7 (0.2-1.2) % Lymph # (Auto) 2.24 (0.9-3.2) K/mm3 [place] # (Auto) 0.5 (0.1-0.6) K/mm3 Eos # (Auto) 0.2 (0-0.3) K/mm3 Baso # (Auto) 0.1 (0.0-0.1) K/mm3 Abs Immat Gran (auto) 0.02 (0.00-0.031) K/mm3 Absolute Neuts (auto) 4.6 (1.3-6.7) K/mm3 Absolute Nucleated RBC 0.000 (0.0-0.012) K/mm3 Nucleated RBC % 0.0 (0.0-0.2) % PT 13.7 (11.1-14.7) Seconds INR 1.0 APTT 26.4 (22.3-36.8) Seconds Sodium 137 (137-145) mmol/L Potassium 4.1 (3.4-5.0) mmol/L Chloride 105 (98-107) mmol/L Carbon Dioxide 22 (22-30) mmol/L Anion Gap 10 (4-12) mmol/L BUN 18 H (7-17) mg/dL Creatinine 0.83 0.90 (0.7-1.0) mg/dL Estim Creat Clear Calc 61 57 ml/min Estimated GFR > 60 > 60 (59 - ) Glucose 93 (65-110) mg/dL POC Capillary Glucose 91 (65-105) mg/dl Calcium 10.1 (8.4-10.2) mg/dL Total Bilirubin 0.6 (0.2-1.3) mg/dL AST 30 (14-36) U/L ALT 18 (6-35) U/L Alkaline Phosphatase 89 (38-126) U/L Troponin I < 0.012 (0.000-0.034) ng/mL Total Protein 8.3 H (6.3-8.2) g/dL Albumin 4.4 (3.5-5.1) g/dL Urine Color (Yellow) Urine Appearance (Clear) Urine pH (5.0-9.0) Ur Specific [place] (1.001-1.035) Urine Protein (Negative) mg/dL Urine Glucose (UA) (Negative) mg/dL Urine Ketones (Negative) mg/dL Ur Blood (Man) (Negative) Urine Nitrate (Negative) Urine Bilirubin (Negative) Urine Urobilinogen (<2.0) mg/dL Leukocyte Esterase Rfl (Negative) PEDRO/UL 09/13/24 Range/Units 10:55 WBC (4.5-10.0) K/mm3 RBC (4.2-5.4) M/mm3 Hgb (12.0-15.0) g/dL Hct (37.0-47.0) % MCV (80-100) fl MCH (26-34) pg MCHC (32-36) g/dl RDW (11.5-14.5) % Plt Count (150-375) k/mm3 MPV (7.4-10.4) fl Immature Gran % (Auto) (0-0.5) % Neut % (Auto) (45.5-73.1) % Lymph % (Auto) (18.3-44.2) % [place] % (Auto) (2.6-8.5) % Eos % (Auto) (0-4.4) % Baso % (Auto) (0.2-1.2) % Lymph # (Auto) (0.9-3.2) K/mm3 [place] # (Auto) (0.1-0.6) K/mm3 Eos # (Auto) (0-0.3) K/mm3 Baso # (Auto) (0.0-0.1) K/mm3 Abs Immat Gran (auto) (0.00-0.031) K/mm3 Absolute Neuts (auto) (1.3-6.7) K/mm3 Absolute Nucleated RBC (0.0-0.012) K/mm3 Nucleated RBC % (0.0-0.2) % PT (11.1-14.7) Seconds INR APTT (22.3-36.8) Seconds Sodium (137-145) mmol/L Potassium (3.4-5.0) mmol/L Chloride (98-107) mmol/L Carbon Dioxide (22-30) mmol/L Anion Gap (4-12) mmol/L BUN (7-17) mg/dL Creatinine (0.7-1.0) mg/dL Estim Creat Clear Calc ml/min Estimated GFR (59 - ) Glucose (65-110) mg/dL POC Capillary Glucose (65-105) mg/dl Calcium (8.4-10.2) mg/dL Total Bilirubin (0.2-1.3) mg/dL AST (14-36) U/L ALT (6-35) U/L Alkaline Phosphatase (38-126) U/L Troponin I (0.000-0.034) ng/mL Total Protein (6.3-8.2) g/dL Albumin (3.5-5.1) g/dL Urine Color Yellow (Yellow) Urine Appearance Clear (Clear) Urine pH 6.5 (5.0-9.0) Ur Specific [place] 1.020 (1.001-1.035) Urine Protein Negative (Negative) mg/dL Urine Glucose (UA) Negative (Negative) mg/dL Urine Ketones Negative (Negative) mg/dL Ur Blood (Man) Negative (Negative) Urine Nitrate Negative (Negative) Urine Bilirubin Negative (Negative) Urine Urobilinogen 0.2 (<2.0) mg/dL Leukocyte Esterase Rfl Negative (Negative) PEDRO/UL Imaging Data Radiologist's impression: ITS Impressions Head CT 09/13/24 09:58 IMPRESSION: 1. Stable appearance of mild scattered white matter hypoattenuation consistent with chronic small vessel ischemic disease. No acute intracranial process. Head/Neck CTA 09/13/24 10:05 IMPRESSION: 1. 20% stenosis of the right carotid bulb relative to normal distal artery lumen diameter (NASCET criteria). 2. 0% stenosis of the left carotid bulb relative to normal distal artery lumen diameter. 3. 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 4. Unremarkable cerebral CT angiogram with no hemodynamically significant stenosis, thrombosis or aneurysm. Chest X-Ray 09/13/24 10:39 IMPRESSION: 1. No acute cardiopulmonary disease. ECG Data EKG #1: ECG completion date: 09/13/24 ECG completion time: 09:57 EKG Interpretation: normal rate (70), sinus rhythm, normal QRS, normal QT and NL axis Critical Care Time Critical Care Time Critical Care Time: Yes Total Critical Care Time: 35 Discharge Plan Discharge Clinical Impression: Dissection, vertebral artery, Stroke-like symptoms Patient Disposition: Acute Care Hospital Condition: Stable Patient Language: Grenadian Prescriptions: No Action pantoprazole 20 mg tablet,delayed release (DR/EC) 20 mg PO QAM Qty: 90 3RF vitamin D69-vrvjx acid 2,500-400 mcg tablet,disintegrating PO vitamin D3-folic acid 125 mcg (5,000 unit)-1 mg tablet 1 tablet PO DAILY Probiotic 3 billion cell capsule 3,000 mmu cells PO DAILY Rx Instructions: administer with a meal multivitamin Tablet 1 tablet PO DAILY ttxj-mpcv-hxk-voi-vbl-wypm-[facility] [phone] mg tablet PO magnesium 250 mg tablet 250 mg PO DAILY herbal drugs Tablet PO biotin 5,000 mcg tablet,disintegrating See Rx Instructions PO DAILY Rx Instructions: orally daily; aspirin 81 mg tablet,delayed release (DR/EC) 81 mg PO DAILY metoprolol tartrate 25 mg tablet 25 mg PO DAILY Sofiatri Aerosphere 160-9-4.8 mcg/actuation HFA aerosol inhaler 2 inh inhalation BID Qty: 10.7 0RF nortriptyline 10 mg capsule See Rx Instructions .ROUTE .COMPLEX Qty: 30 0RF Dose Instruction: TAKE 1 CAPSULE BY MOUTH EVERY DAY AT BEDTIME Rx Instructions: TAKE 1 CAPSULE BY MOUTH EVERY DAY AT BEDTIME albuterol sulfate 90 mcg/actuation HFA aerosol inhaler See Rx Instructions .ROUTE .COMPLEX Qty: 34 3RF Dose Instruction: USE 2 INHALATIONS BY MOUTH 4 TIMES DAILY NEEDED FOR SHORTNESS OF BREATH OR WHEEZING Rx Instructions: USE 2 INHALATIONS BY MOUTH 4 TIMES DAILY NEEDED FOR SHORTNESS OF BREATH OR WHEEZING hydrochlorothiazide 12.5 mg tablet See Rx Instructions .ROUTE .COMPLEX Qty: 100 2RF Dose Instruction: TAKE 1 TABLET BY MOUTH DAILY Rx Instructions: TAKE 1 TABLET BY MOUTH DAILY losartan 25 mg tablet See Rx Instructions .ROUTE .COMPLEX Qty: 100 2RF Dose Instruction: TAKE 1 TABLET BY MOUTH DAILY Rx Instructions: TAKE 1 TABLET BY MOUTH DAILY clopidogrel 75 mg tablet See Rx Instructions .ROUTE .COMPLEX Qty: 100 2RF Dose Instruction: TAKE 1 TABLET BY MOUTH DAILY Rx Instructions: TAKE 1 TABLET BY MOUTH DAILY pravastatin 40 mg tablet See Rx Instructions .ROUTE .COMPLEX Qty: 90 0RF Dose Instruction: TAKE 1 TABLET BY MOUTH EVERY DAY AT BEDTIME Rx Instructions: TAKE 1 TABLET BY MOUTH EVERY DAY AT BEDTIME Follow-up/Referrals: Johann Lobato DO [Primary Care Provider] - Quality Stroke Date of last known normal: 09/13/24 Time of last known normal: 09:15 Stroke Scale Stroke Scale 1: Stroke scale date:: 09/13/24 Stroke scale time:: 09:30 1a Level of consciousness: alert-0 1b Level of consciousness questions: answers both correctly-0 1c Level of consciousness commands: obeys both correctly-0 2 Best gaze: normal-0 3 Visual: no visual loss-0 4 Facial palsy: normal-0 5a Motor: left arm: no drift-0 5b Motor: right arm: no drift-0 6a Motor: left leg: no drift-0 6b Motor: right leg: no drift-0 7 Limb ataxia: absent-0 8 Sensory: normal-0 9 Best language: no aphasia-0 10 Dysarthria: normal-0 11 Extinction and inattention: no abnormality-0 Level:: 0
[2024-09-13 09:58] LABS: Hematocrit 40.0 % (37.0-47.0); Hemoglobin 12.6 g/dL (12.0-15.0); Immature Granulocyte Percent A 0.3 % (0-0.5); Lymphocytes Absolute Auto 2.24 K/mm3 (0.9-3.2); Mean Corpuscular HGB Conc 31.5 g/dl (32-36); Mean Corpuscular Hemoglobin 25.9 pg (26-34); Mean Corpuscular Volume 82.1 fl (80-100); Nucleated Red Blood Cells Absolute Auto 0.000 K/mm3 (0.0-0.012); Nucleated Red Blood Cells Perc 0.0 % (0.0-0.2); Platelet Count Result 378 k/mm3 (150-375); Red Blood Count 4.87 M/mm3 (4.2-5.4); White Blood Count 7.6 K/mm3 (4.5-10.0)
--- OUTSIDE RECORDS SUMMARY | 2024-09-13 10:02 | XMS_ITS | Encounter Summary ---
Author Organization [facility] Healthcare Address [address] [place] [address] Care Team Providers Care Heat Engineering Teacher Name Role Phone Sherif Anguiano MD Primary Care Prov ider Leonora Fierro MD Unavailable [phone] Gerard García MD PhD Unavailable [phone] Rolan Monzon MD Unavailable [phone] Jarvis Cano MD Unavailable Jordan Hernandez MD Unavailable Cesar Ashraf MD Unavailable Sherif Navarro MD Unavailable [phone] Shauna Solomon MD Unavailable [phone] Wale Gutierrez MD Unavailable [phone] Reason for Referral * MRI/CAT/PET Scan (Routine) - Pending Review Specialty Diagnoses / Procedures Referred By Contac t Referred To Contact Radiology Diagnoses Malignant neoplasm of right upper lobe of lung (HCC) Procedures CT Chest WO Contrast Gemini Da Silva PA [address] [address] Phone: tel: fax: [address] [phone] Referral ID Status Reason Start Date Expiration Date V isits Requested Visits Authorized [id number] Pending Review 09/13/2024 10/13/2025 1 1 Encounter Details Date Type Department Care Team (Late st Contact Info) Description 09/13/2024 Telephone [facility] [place] [facility] Building 2 Radiation Oncology [address] [place] [address] Gemini Da Silva PA [address] [facility] [address] [place] [address] Social History Tobacco Use Types Packs/Day Years Used Date Smoking Tobacco: Former Cigarettes 2 50 1 966 - 2016 Smokeless Tobacco: Never Alcohol Use Standard Drinks/Week Comments Never 0 (1 standard drink = 0.6 oz pur e alcohol) [facility] Utilities Answer Date Recorded In the past 12 months has e [employer], gas, oil, or water company threatened to [...] often do you attend chur ch or faith services? Never 05/17/2024 Do you belong to any clubs o r organizations such as hinduism groups, unions, fraternal or athletic groups, or [...] place to sleep or slept in a [place] (including now)? No 09/11/2022 Housing Stability Vital Sign Answer Alessandro e Recorded In the last 12 months, was t here a time when you were not able to pay the mortgage or rent on time? No 05/17/2024 In the past 12 months, how m any times have you moved where you were living? 0 05/17/2024 At any time in the past 12 m [facility], were you homeless or living in a [place] facility (including now)? No 05/17/2024 Personal Safety Answer Date Recorded Have you ever been in or are you currently in a harmful physical or emotional relationship or is someone making you feel afraid or unsafe? 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 Left call back # CT ordered for February documented in this encounter Plan of Treatment Scheduled Orders Name Type Priority Associated Diagnoses Orde r Schedule CT Chest WO Contrast Imaging Schedule Routine, Read Routine (OP Routine) Malignant neoplasm of right upper lobe of lung (HCC) Expected: 03/01/2025 (Approximate), Expires: 09/13/2025 documented as of this encounter Visit Diagnoses Diagnosis Malignant neoplasm of right upper lobe of lung (HCC)- Primary documented in this encounter Care Teams Heat Engineering Teacher Relationship Specialty Start Date End Date Sherif Anguiano MD [address] [place] [address] PCP - General Family Medicine 10/04/18 Leonora Fierro MD [address] [facility] [address] [place] [address] Referring Physician Pulmonary Disease 03/21/21 Gerard García MD PhD [address] [facility] MEDICAL ONCOLOGY, [facility] [address] [place] [address] Medical Oncologist/Hematologis t Medical Oncology 03/21/21 [place] [address] Consulting Physician Otolaryngology 04/03/21 Jarvis Cano MD [address] [place] [address] Surgeon Thoracic Surgery 05/01/21 Jordan Hernandez MD [address] [place] [address] [place] [address] Consulting Physician Cardiology 11/13/21 Cesar Ashraf MD [address] [address] Surgeon Pulmonary Disease 02/11/22 Sherif Navarro MD [address] [facility] [address] [place] [address] [id number] Surgeon Vascular Surgery 03/04/22 Shauna Solomon MD [address] [facility] [address] [place] [id number] [place], [place] [id number] Consulting Physician Interventional Cardiology 09/11/22 Wale Gutierrez MD [address] [address] Radiation Oncologist Radiation Oncology 12/10/23 documented as of this encounter
--- OUTSIDE RECORDS SUMMARY | 2024-09-13 10:02 | XMS_ITS | Clinical Summary ---
Author Organization [facility] [address] Address [address] [place] [address] Care Team Providers Care Creative Guru Name Role Phone Sherif Anguiano MD Primary Care Prov ider Leonora Fierro MD Unavailable [phone] Gerard García MD PhD Unavailable [phone] Rolan Monzon MD Unavailable [phone] Jarvis Cano MD Unavailable Jordan Hernandez MD Unavailable Cesar Ashraf MD Unavailable Sherif Navarro MD Unavailable [phone] Shauna Solomon MD Unavailable [phone] Wale Gutierrez MD Unavailable [phone] Allergies Active Allergy Reactions Criticality Noted [...] Weakness 09/11/2022 Coronary artery disease invo lving [place] coronary artery of [place] heart without angina pectoris 09/11/2022 Obstructive sleep apnea 04/10/2022 Assessment & Plan (06/27/2024 9:47 AM CDT): The patient continues to benefit from the auto titrating CPAP unit with a range of 5-15 cm water pressure for ongoing symptoms of BRIAN. Her DME supplier is [employer]. She will follow up here in 1 year. Assessment & Plan (03/24/2024 10:17 AM VACUUM REPAIRER): The patient continues to benefit from the auto titrating CPAP unit with a range of 5-15 cm water pressure but has an old CPAP unit. I will order a new auto titrating CPAP unit for her with a range of 5-15 cm water pressure through [employer]. She will follow up here in 3 months. I will have her sign a release to get the home sleep test that she had long ago either through her primary care physician's office or [facility]. Occlusion and stenosis of vertebral artery 03/14 Assessment & Plan (03/14/2022 6:11 PM VACUUM REPAIRER): Per prior duplex performed at an outside institution there was no mention of either vertebral artery. Patient had a CT scan which suggested stenosis of the left vertebral artery. Will follow up with carotid duplex. Bilateral carotid artery stenosis 03/14/2022 Assessment & Plan (05/11/2024 4:06 PM VACUUM REPAIRER): Patient with no obvious carotid, vertebral stenosis on most recent CTA. She is being followed with surveillance studies annually. Will repeat 1 more surveillance study in a year with a bilateral carotid artery duplex. If no significant stenosis seen may follow up in the office on as needed basis Assessment & Plan (04/13/2023 9:24 AM VACUUM REPAIRER): Bilateral carotid stenosis asymptomatic and nonprogressive. Remains [...] duplex. Assessment & Plan (03/28/2022 1:55 PM VACUUM REPAIRER): Bilateral carotid duplex obtained for intermittent dizziness [...] duplex. Assessment & Plan (03/14/2022 6:10 PM VACUUM REPAIRER): Per prior imaging from an outside institution [...] disease Assessment & Plan (03/14/2022 6:09 PM VACUUM REPAIRER): COPD is chronic and controlled. Continue current medical therapy. Encounters Date Type Department Care Team Description 09/13/2024 Telephone [facility] Building 2 Radiation Oncology [address] [place] [address] Gemini Da Silva PA 09/06/2024 4:00 PM CDT Office Visit [facility] 2 Radiation Oncology [address] [place] [address] Gemini Da Silva PA Malignant neoplasm of right upper lobe of lung (HCC) (Primary Dx); Personal history of radiation therapy 08/30/2024 10:05 AM CDT - 08/30/2024 11:59 PM CDT Hospital Encounter [facility] [address] [place] [address] Malignant neoplasm of right upper lobe of lung (HCC) Discharge Disposition: Discharge to home or self care 06/27/2024 9:45 AM CDT Office Visit [facility] Pulmonary [address] [place] [phone] Eric Jaramillo MD Obstructive sleep apnea (Primary [...] drink = 0.6 oz pur e alcohol) [facility] Utilities Answer Date Recorded In the past [...] often do you attend chur ch or taoist services? Never 05/17/2024 Do you belong to any clubs o r organizations such as oriental orthodox groups, unions, fraternal or athletic groups, or [...] place to sleep or slept in a fpc (including now)? No 09/11/2022 Housing Stability Vital Sign Answer Alessandro e Recorded In the last 12 months, was t here a time when you were not able to pay the mortgage or rent on time? No 05/17/2024 In the past 12 months, how m any times have you moved where you were living? 0 05/17/2024 At any time in the past [address] [facility], were you homeless or living in a fpc (including now)? No 05/17/2024 Personal Safety Answer Date Recorded Have you ever been in or are you currently in a harmful physical or emotional relationship or is someone making you feel afraid or unsafe? Denies 05/23/2024 Comments No Sex and Gender Information Value Date Recorded Sex Assigned at Not on file Legal Sex Female 12:30 AM VACUUM REPAIRER Gender Identity Not on file Sexual Orientation [...] Jamison Lama M.D. CH: VITALY Report ID: [id number] Reading Location: [place] [address] Procedure Note Jamison Lama Jr., MD - [...] Jamison Lama M.D. CH: VITALY Report ID: [id number] Reading Location: [id number] us Gemini CASTRO IM CT PROCEDURES Final Res ult * Colonoscopy (05/23/2024 11:54 AM CDT) Anatomical Region Laterality Modality Other Narrative Procedure Note Jaime Nolen MD - 05/23/2024 11:54 AM CDT [facility] GI ENDOSCOPY Patient Name: Heather Solorzano Procedure Date: 05/23/2024 11:54 AM Date of : 1955 Admit Type: Outpatient Age: 68 Gender: Female Attending MD: Jaime Nolen M.D. Room: [facility] ENDOSCOPY ROOM 06 Note Status: [...] or concerns or if symptoms progress Jaime oNlen M.D. 05/23/2024 12:40:49 PM Number of Addenda: 0 Note Initiated On: 05/23/2024 11:54 AM Recognized by the [place] for promoting quality in endoscopy us Jaime Nolen MD ENDOSCOPY PROCEDURES Sarah l Result from Last 3 Months or Most Recently Relevant to Health Maintenance Insurance [facility] MEDIC[facility] Address: [address] [place] [address] [facility] MEDIC[facility] Address: [address] [place] [address] Advance Directives For more information, please contact: [phone] Documents on File Type Date Recorded Patient Patient Intake Coordinator Expl anation ADVANCE DIRECTIVE 01/26/2024 11:11 AM Pow er of Digital Strategist-Medical * Full Code (Latest Code Status on File) Date Activated Date Inactivated Comments 05/15/2024 2:25 PM 05/19/2024 3:49 PM * Full Code Date Activated Date Inactivated Comments 01/25/2024 2:58 PM 01/28/2024 4:22 PM * Full Code Date Activated Date Inactivated Comments 09/11/2022 12:01 AM 09/12/2022 12:16 AM * Full Code Date Activated Date Inactivated Comments 11/13/2021 12:08 AM 11/13/2021 7:59 PM Care Teams Creative Guru Relationship Specialty Start Date End Date Sherif Anguiano MD [address] [place] [address] PCP - General Family Medicine 10/04/18 Leonora Fierro MD [address] [facility] [address] [place], [place] [id number] Referring Physician Pulmonary Disease 03/21/21 Gerard García MD PhD 1418 [facility] MEDICAL ONCOLOGY, [facility] [address] [place], [place] [id number] Medical Oncologist/Hematologis t Medical Oncology 03/21/21 Rolan Monzon MD [address] [place] [address] Consulting Physician Otolaryngology 04/03/21 Jarvis Cano MD [address] [place] [address] Surgeon Thoracic Surgery 05/01/21 Jordan Hernandez MD [address] [facility] C [facility] 23[address] [facility] C, [facility] [address] [place] [address] Consulting Physician Cardiology 11/13/21 Cesar Ashraf MD 1418 [facility] 350 [place] [address] Surgeon Pulmonary Disease 02/11/22 Sherif Navarro MD [address] [facility] [address] [facility] [address] [address] Surgeon Vascular Surgery 03/04/22 Shauna Solomon MD [address] [facility] [facility] [address] [address] Consulting Physician Interventional Cardiology 09/11/22 Wale Gutierrez MD [address] [place] [id number] Radiation Oncologist Radiation Oncology 12/10/23
--- OUTSIDE RECORDS SUMMARY | 2024-09-13 10:02 | XMS_ITS ---
Author Organization [facility] [address] Address [address] [place] [address] Care Team Providers Care Freelance Digital Project Manager Name Role Phone Sherif Anguiano MD Primary Care Prov ider Leonora Fierro MD Unavailable [phone] Gerard García MD PhD Unavailable Rolan Monzon MD Unavailable [phone] Jarvis Cano MD Unavailable Jordan Hernandez MD Unavailable Cesar Ashraf MD Unavailable Sherif Navarro MD Unavailable [phone] Shauna Solomon MD Unavailable [phone] Wale Gutierrez MD Unavailable [phone] Active Problems Patient Care Coordination No [...] Weakness 09/11/2022 Coronary artery disease invo lving [place] coronary artery of [place] heart without angina pectoris 09/11/2022 Obstructive sleep apnea 04/10/2022 Assessment & Plan (06/27/2024 9:47 AM CDT): The patient continues to benefit from the auto titrating CPAP unit with a range of 5-15 cm water pressure for ongoing symptoms of BRIAN. Her DME supplier is [employer]. She will follow up here in 1 year. Assessment & Plan (03/24/2024 10:17 AM JOINT CUTTER MACHINE): The patient continues to benefit from the [...] 03/14 Assessment & Plan (03/14/2022 6:11 PM JOINT CUTTER MACHINE): Per prior duplex performed at an outside institution there was no mention of either vertebral artery. Patient had a CT scan which suggested stenosis of the left vertebral artery. Will follow up with carotid duplex. Bilateral carotid artery stenosis 03/14/2022 Assessment & Plan (05/11/2024 4:06 PM JOINT CUTTER MACHINE): Patient with no obvious carotid, vertebral stenosis on most recent CTA. She is being followed with surveillance studies annually. Will repeat 1 more surveillance study in a year with a bilateral carotid artery duplex. If no significant stenosis seen may follow up in the office on as needed basis Assessment & Plan (04/13/2023 9:24 AM JOINT CUTTER MACHINE): Bilateral carotid stenosis asymptomatic and nonprogressive. Remains [...] duplex. Assessment & Plan (03/28/2022 1:55 PM JOINT CUTTER MACHINE): Bilateral carotid duplex obtained for intermittent dizziness [...] duplex. Assessment & Plan (03/14/2022 6:10 PM JOINT CUTTER MACHINE): Per prior imaging from an outside institution [...] disease Assessment & Plan (03/14/2022 6:09 PM JOINT CUTTER MACHINE): COPD is chronic and controlled. Continue current [...]
--- OUTSIDE RECORDS SUMMARY | 2024-09-13 10:02 | XMS_ITS | Referral Summary ---
Author Organization [facility] [address] Address [address] [place] [address] Care Team Providers Care Subway Guard Name Role Phone Sherif Anguiano MD Primary Care Prov ider Leonora Fierro MD Unavailable [phone] Gerard García MD PhD Unavailable [phone] Rolan Monzon MD Unavailable Jarvis Cano MD Unavailable Jordan Hernandez MD Unavailable Cesar Ashraf MD Unavailable [phone] Sherif Navarro MD Unavailable [phone] Shauna Solomon MD Unavailable [phone] Wale Gutierrez MD Unavailable [phone] Encounters Date Type Department Care Team Description 09/13/2024 Telephone [facility] Medical Office Building 2 Radiation Oncology [address] [place] [address] Gemini Da Silva PA 09/06/2024 4:00 PM CDT Office Visit [facility] Medical Office Building 2 Radiation Oncology [address] [place] [address] [id number] Gemini Da Silva, PA Malignant neoplasm of right upper lobe of lung (HCC) (Primary Dx); Personal history of radiation therapy 08/30/2024 10:05 AM CDT - 08/30/2024 11:59 PM CDT Hospital Encounter [facility] Medical Office Building [address] [place] [address] Malignant neoplasm of right upper lobe of lung (HCC) Discharge Disposition: Discharge to home or self care 06/27/2024 9:45 AM CDT Office Visit [facility] Medical Group Pulmonary [address] [place] [phone] Eric Jaramillo MD Obstructive sleep apnea (Primary [...] Weakness 09/11/2022 Coronary artery disease invo lving [place] coronary artery of crow heart without angina pectoris 09/11/2022 Obstructive sleep apnea 04/10/2022 Assessment & Plan (06/27/2024 9:47 AM CDT): The patient continues to benefit from the auto titrating CPAP unit with a range of 5-15 cm water pressure for ongoing symptoms of BRIAN. Her DME supplier is [employer]. She will follow up here in 1 year. Assessment & Plan (03/24/2024 10:17 AM SENIOR MECHANICAL DESIGN ENGINEER): The patient continues to benefit from the auto titrating CPAP unit with a range of 5-15 cm water pressure but has an old CPAP unit. I will order a new auto titrating CPAP unit for her with a range of 5-15 cm water pressure through [employer]. She will follow up here in 3 months. I will have her sign a release to get the home sleep test that she had long ago either through her primary care physician's office or [employer]. Occlusion and stenosis of vertebral artery 03/14 Assessment & Plan (03/14/2022 6:11 PM SENIOR MECHANICAL DESIGN ENGINEER): Per prior duplex performed at an outside institution there was no mention of either vertebral artery. Patient had a CT scan which suggested stenosis of the left vertebral artery. Will follow up with carotid duplex. Bilateral carotid artery stenosis 03/14/2022 Assessment & Plan (05/11/2024 4:06 PM SENIOR MECHANICAL DESIGN ENGINEER): Patient with no obvious carotid, vertebral stenosis on most recent CTA. She is being followed with surveillance studies annually. Will repeat 1 more surveillance study in a year with a bilateral carotid artery duplex. If no significant stenosis seen may follow up in the office on as needed basis Assessment & Plan (04/13/2023 9:24 AM SENIOR MECHANICAL DESIGN ENGINEER): Bilateral carotid stenosis asymptomatic and nonprogressive. Remains [...] duplex. Assessment & Plan (03/28/2022 1:55 PM SENIOR MECHANICAL DESIGN ENGINEER): Bilateral carotid duplex obtained for intermittent dizziness [...] duplex. Assessment & Plan (03/14/2022 6:10 PM SENIOR MECHANICAL DESIGN ENGINEER): Per prior imaging from an outside institution [...] disease Assessment & Plan (03/14/2022 6:09 PM SENIOR MECHANICAL DESIGN ENGINEER): COPD is chronic and controlled. Continue current [...] drink = 0.6 oz pur e alcohol) [facility] Utilities Answer Date Recorded In [...] often do you attend chur ch or anabaptist services? Never 05/17/2024 Do you belong to any clubs o r organizations such as quaker groups, unions, fraternal or athletic groups, or [...] place to sleep or slept in a care home (including now)? No 09/11/2022 Housing Stability Vital Sign Answer Alessandro e Recorded In the last 12 months, was t here a time when you were not able to pay the mortgage or rent on time? No 05/17/2024 In the past 12 months, how m any times have you moved where you were living? 0 05/17/2024 At any time in the past 12 m [facility], were you homeless or living in a care home (including now)? No 05/17/2024 Personal Safety Answer Date Recorded Have you ever been in or are you currently in a harmful physical or emotional relationship or is someone making you feel afraid or unsafe? Denies 05/23/2024 Comments No Sex and Gender Information Value Date Recorded Sex Assigned at Not on file Legal Sex Female 12:30 AM SENIOR MECHANICAL DESIGN ENGINEER Gender Identity Not on file Sexual Orientation [...] Jamison Lama M.D. CH: VITALY Report ID: [id number] Reading Location: [id number] Procedure Note Jamison Lama Jr., MD - [...] Jamison Lama M.D. CH: VITALY Report ID: [id number] Reading Location: [place] [address] Gemini CASTRO [facility] CT PROCEDURES Final Res ult * Colonoscopy (05/23/2024 11:54 AM CDT) Anatomical Region Laterality Modality Other Narrative Procedure Note Jaime Nolen MD - 05/23/2024 11:54 AM CDT [facility] GI ENDOSCOPY Patient Name: Heather Solorzano Procedure Date: 05/23/2024 11:54 AM Date of : 1955 Admit Type: Outpatient Age: 68 Gender: Female Attending MD: Jaime Nolen M.D. Room: [facility] ENDOSCOPY ROOM 06 Note [...] On: 05/23/2024 11:54 AM Recognized by the [place] [employer] for promoting quality in endoscopy Jaime Nolen MD ENDOSCOPY PROCEDURES Sarah l Result from Last 3 Months or Most Recently Relevant to Health Maintenance Insurance [facility] Address: [address] [place] [id number] [employer] MEDICARE [employer]VANTAGE [facility] Address: [address] [address] [place] [address] Advance Directives For more information, please contact: [phone] Documents on File Type Date Recorded Patient Code Inspector Expl anation ADVANCE DIRECTIVE 01/26/2024 11:11 AM [facility] er of Liquefaction Plant Operator-Medical * Full Code (Latest Code Status on File) Date Activated Date Inactivated Comments 05/15/2024 2:25 PM 05/19/2024 3:49 PM * Full Code Date Activated Date Inactivated Comments 01/25/2024 2:58 PM 01/28/2024 4:22 PM * Full Code Date Activated Date Inactivated Comments 09/11/2022 12:01 AM 09/12/2022 12:16 AM * Full Code Date Activated Date Inactivated Comments 11/13/2021 12:08 AM 11/13/2021 7:59 PM Care Teams Subway Guard Relationship Specialty Start Date End Date Sherif Anguiano MD [address] [place] [address] PCP - General Family Medicine 10/04/18 Leonora Fierro MD [address] [facility] [address] [place], [place] [id number] Referring Physician Pulmonary Disease 03/21/21 Gerard García MD PhD 1418 [facility] MEDICAL ONCOLOGY, [facility] [address] [place] [address] Medical Oncologist/Hematologis t Medical Oncology 03/21/21 Rolan [place] [address] Consulting Physician Otolaryngology 04/03/21 Jarvis [place] [address] Surgeon Thoracic Surgery 05/01/21 Jordan Hernandez MD [address] [place] [address] Consulting Physician Cardiology 11/13/21 Cesar Ashraf MD [address] [place] [address] Surgeon Pulmonary Disease 02/11/22 Sherif Navarro MD [address] [facility] [address] [facility] [address] [address] Surgeon Vascular Surgery 03/04/22 Shauna Solomon MD [address] [facility] [address] [facility] [address] [address] Consulting Physician Interventional Cardiology 09/11/22 Wale Gutierrez MD [address] [place] [address] Radiation Oncologist Radiation Oncology 12/10/23
--- OUTSIDE RECORDS SUMMARY | 2024-09-13 10:02 | XMS_ITS | Encounter Summary ---
Author Organization [facility] Healthcare Address [address] [place] [address] Care Team Providers Care Exhauster Name Role Phone Sherif Anguiano MD Primary Care Prov ider Leonora Fierro MD Unavailable [phone] Gerard García MD PhD Unavailable Rolan Monzon MD Unavailable [phone] Wale Gutierrez MD Unavailable [phone] Jarvis Cano MD Unavailable Jordan Hernandez MD Unavailable Cesar Ashraf MD Unavailable [phone] Sherif Navarro MD Unavailable [phone] Shauna Solomon MD Unavailable [phone] Wale Gutierrez MD Unavailable [phone] Encounter Details Date Type Department Care Team (Late st Contact Info) Description 10/04/2018 Orders Only [facility] Health Information Management [address] [place] [address] Scanning, Provider Social History Tobacco Use Types Packs/Day Years Used Date Smoking Tobacco: Every Day Comments Unknown Sex and Gender Information Value Date Recorded Sex Assigned at Not on file Legal Sex Female 12:30 AM HEALTH PROMOTION OFFICER Gender Identity Not on file Sexual Orientation [...] COVID: Suspected 05/15/2024 05/15/2024 05/15/2024 9:41 AM HEALTH PROMOTION OFFICER Influenza, adult 05/15/2024 05/15/2024 05/22/2024 3:06 AM CDT documented as of this encounter Care Teams Exhauster Relationship Specialty Start Date End Date Sherif Anguiano MD [address] [place] [address] PCP - General Family Medicine 10/04/18 Leonora Fierro MD [address] [place], [place] [id number] Referring Physician Pulmonary Disease 03/21/21 Gerard García MD PhD [facility] MEDICAL ONCOLOGY, [address] [place] [address] Medical Oncologist/Hematologis t Medical Oncology 03/21/21 Rolan [place] [address] Consulting Physician Otolaryngology 04/03/21 Wale [place] [address] Radiation Oncologist Radiation Oncology 04/03/21 Jarvis Cano MD [address] [place] [address] Surgeon Thoracic Surgery 05/01/21 Jordan Hernandez MD [address] [facility] [address] [place] [address] Consulting Physician Cardiology 11/13/21 Cesar Ashraf MD [address] [place] [address] Surgeon Pulmonary Disease 02/11/22 Sherif Navarro MD [address] [facility] [address] [facility]0 [place] [address] [place] [address] Surgeon Vascular Surgery 03/04/22 Shauna Solomon MD [address] [place] [address] [place] [address] Consulting Physician Interventional Cardiology 09/11/22 Wale Gutierrez MD [address] [place] [address] Radiation Oncologist Radiation Oncology 12/10/23 documented as of this encounter
[2024-09-13 10:10] LABS: Alanine Aminotransferase 18 U/L (6-35); Albumin Level 4.4 g/dL (3.5-5.1); Alkaline Phosphatase 89 U/L (38-126); Anion Gap 10 mmol/L (4-12); Aspartate Amino Transferase 30 U/L (14-36); Bilirubin,Total 0.6 mg/dL (0.2-1.3); Blood Urea Nitrogen 18 mg/dL (7-17); Calcium 10.1 mg/dL (8.4-10.2); Carbon Dioxide 22 mmol/L (22-30); Chloride 105 mmol/L (98-107); Estimated CRCL calculation 61 ml/min; Estimated Glomerular Filt Rate > 60; Glucose 93 mg/dL (65-110); Potassium 4.1 mmol/L (3.4-5.0); Sodium 137 mmol/L (137-145); Total Protein 8.3 g/dL (6.3-8.2)
[2024-09-13 10:14] LABS: INR 1.0; Prothrombin Time 13.7 Seconds (11.1-14.7)
[2024-09-13 10:15] LABS: Partial Thromboplastin Time 26.4 Seconds (22.3-36.8)
[2024-09-13 10:21] LABS: Troponin I < 0.012 ng/mL (0.000-0.034)
[2024-09-13] MEDS: ASPIRIN 325 MG TABLET PO (10:38)
[2024-09-13 11:06] LABS: Add Urine Microscopic? NO; Appearance Urine Clear (Clear); Glucose Urine UA Negative (Negative); Leukocyte Esterase Ur Negative LEU/UL (Negative); Nitrate Urine Negative (Negative); Specific Grav Ur 1.020 (1.001-1.035)
[2024-09-13] MEDS: ACETAMINOPHEN 325 MG TABLET 650 MG PO (14:53)
== END 2024-09-13 16:30 | disposition short-term general hospital (02) ==
PROVIDERS: Emergency Provider Emergency Medicine; PCP Family Medicine
DX: I77.74 Dissection of vertebral artery (principal); I25.2 Old myocardial infarction; E78.5 Hyperlipidemia, unspecified; J44.9 Chronic obstructive pulmonary disease, unspecified; G47.33 Obstructive sleep apnea (adult) (pediatric); K21.9 Gastro-esophageal reflux disease without esophagitis; M19.90 Unspecified osteoarthritis, unspecified site; Z95.5 Presence of coronary angioplasty implant and graft; Z85.118 Personal history of other malignant neoplasm of bronchus and lung; Z86.73 Personal history of transient ischemic attack (TIA), and cerebral infarction without residual deficits; Z87.891 Personal history of nicotine dependence; Z90.710 Acquired absence of both cervix and uterus; Z79.02 Long term (current) use of antithrombotics/antiplatelets; Z79.82 Long term (current) use of aspirin; Z79.899 Other long term (current) drug therapy; R94.31 Abnormal electrocardiogram [ECG] [EKG]
CPT/HCPCS: 36415; 70450; 70496; 70498; 71045; 80053; 81003; 82948; 84484; 85025; 85610; 85730; 93005; 99285; A9270; Q9967

== ENCOUNTER 2024-09-21 13:20 | Outpatient (CLI) | payer MEDICARE, SELFPAY ==
--- NOTE | ~2024-09-21 | XR_ITS ---
CHEST RADIOGRAPH, PA AND LATERAL CLINICAL HISTORY: R06.02 - Shortness of breath RECENT TIA . COMPARISON: 09/14/2019 TECHNIQUE: PA and lateral views of the chest. FINDINGS The cardiomediastinal silhouette is unremarkable. The lungs are clear. IMPRESSION: No focal infiltrate or effusion. Reviewed, dictated and finalized at location A.
--- OUTSIDE RECORDS SUMMARY | 2024-09-21 13:34 | XMS_ITS | Encounter Summary ---
Author Organization [facility] Healthcare Address [address] [place] [address] Care Team Providers Care Internet Marketing Specialist Name Role Phone Sherif Anguiano MD Primary Care Prov ider Leonora Fierro MD Unavailable [phone] Gerard García MD PhD Unavailable Rolan Monzon MD Unavailable [phone] Jarvis Cano MD Unavailable Jordan Hernandez MD Unavailable Cesar Ashraf MD Unavailable Sherif Navarro MD Unavailable [phone] Shauna Solomon MD Unavailable [phone] Wale Gutierrez MD Unavailable [phone] Reason for Visit * Reason Onset Date Comments Transient Ischemic Attack 09/20/2024 Encounter Details Date Type Department Care Team (Late st Contact Info) Description 09/20/2024 Telephone [facility] Medical Group Cardiology [address] [place] [address] [place] [phone] Filipe Patel MD [address] [facility] [place] [address] Transient Ischemic Attack Social History Tobacco Use Types Packs/Day Years Used Date Smoking Tobacco: Former Cigarettes 2 50 1 966 - 2016 Smokeless Tobacco: Never Alcohol Use Standard Drinks/Week Comments Never 0 (1 standard drink = 0.6 oz pur e alcohol) [facility] Utilities Answer Date Recorded In the past [...] often do you attend chur ch or religion services? Never 05/17/2024 Do you belong to any clubs o r organizations such as religion groups, unions, fraternal or athletic groups, or [...] place to sleep or slept in a assisted (including now)? No 09/11/2022 Housing Stability Vital Sign Answer Alessandro e Recorded In the last 12 months, was t here a time when you were not able to pay the mortgage or rent on time? No 05/17/2024 In the past 12 months, how m any times have you moved where you were living? 0 05/17/2024 At any time in the past 12 m [facility], were you homeless or living in a assisted (including now)? No 05/17/2024 Personal Safety Answer Date Recorded Have you ever been in or are you currently in a harmful physical or emotional relationship or is someone making you feel afraid or unsafe? 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 She was told to notify of this. She states that since the TIA her oxygen is lower than normal. She states the lowest readingshe got was 92. She is scheduled to see on 10/19/24 documented in this encounter Plan of Treatment Not on file documented as of this encounter Visit Diagnoses Not on filedocumented in this encounter Care Teams Internet Marketing Specialist Relationship Specialty Start Date End Date Sherif Anguiano MD [address] [facility] [address] PCP - General Family Medicine 10/04/18 Leonora Fierro MD [address] [place], [place] [id number] Referring Physician Pulmonary Disease 03/21/21 Gerard García MD PhD 14[address] [facility] MEDICAL ON[facility]OGY, [facility] [address] [place] [address] Medical Oncologist/Hematologis t Medical Oncology 03/21/21 Rolan Monzon MD [address] [place] [address] Consulting Physician Otolaryngology 04/03/21 Jarvis Cano MD [address] [place] [address] Surgeon Thoracic Surgery 05/01/21 Jordan Hernandez MD [address] [facility] [address] [facility] [address]10 [facility] C, [facility] [address] [place] [address] Consulting Physician Cardiology 11/13/21 Cesar Ashraf MD [address] [facility] [address] [place], [place] [id number] Surgeon Pulmonary Disease 02/11/22 Sherif Navarro MD [address] [facility] [address] [facility] [address] [place] [address] Surgeon Vascular Surgery 03/04/22 Shauna Solomon MD [address] [facility] [address] [facility] [address] [place] [address] Consulting Physician Interventional Cardiology 09/11/22 Wale Gutierrez MD 14[address] [facility] [address] [place] [address] Radiation Oncologist Radiation Oncology 12/10/23 documented as of this encounter
--- OUTSIDE RECORDS SUMMARY | 2024-09-21 13:34 | XMS_ITS ---
Author Organization [facility] [address] Address [address] [place] [address] Care Team Providers Care Youth Counselor Name Role Phone Sherif Anguiano MD Primary Care Prov ider Leonora Fierro MD Unavailable [phone] Gerard García MD PhD Unavailable Rolan Monzon MD Unavailable [phone] Jarvis Cano MD Unavailable Jordan Hernandez MD Unavailable Cesar Ashraf MD Unavailable Sherif Navarro MD Unavailable [phone] Shauna Solomon MD Unavailable [phone] Wale Gutierrez MD Unavailable [phone] Active Problems Patient Care Coordination No [...] Weakness 09/11/2022 Coronary artery disease invo lving [place] coronary artery of [place] heart without angina pectoris 09/11/2022 Obstructive sleep apnea 04/10/2022 Assessment & Plan (06/27/2024 9:47 AM CDT): The patient continues to benefit from the auto titrating CPAP unit with a range of 5-15 cm water pressure for ongoing symptoms of BRIAN. Her DME supplier is [employer]. She will follow up here in 1 year. Assessment & Plan (03/24/2024 10:17 AM SERVICE STATION MANAGER): The patient continues to benefit from the [...] 03/14 Assessment & Plan (03/14/2022 6:11 PM SERVICE STATION MANAGER): Per prior duplex performed at an outside institution there was no mention of either vertebral artery. Patient had a CT scan which suggested stenosis of the left vertebral artery. Will follow up with carotid duplex. Bilateral carotid artery stenosis 03/14/2022 Assessment & Plan (05/11/2024 4:06 PM SERVICE STATION MANAGER): Patient with no obvious carotid, vertebral stenosis on most recent CTA. She is being followed with surveillance studies annually. Will repeat 1 more surveillance study in a year with a bilateral carotid artery duplex. If no significant stenosis seen may follow up in the office on as needed basis Assessment & Plan (04/13/2023 9:24 AM SERVICE STATION MANAGER): Bilateral carotid stenosis asymptomatic and nonprogressive. Remains [...] duplex. Assessment & Plan (03/28/2022 1:55 PM SERVICE STATION MANAGER): Bilateral carotid duplex obtained for intermittent dizziness [...] duplex. Assessment & Plan (03/14/2022 6:10 PM SERVICE STATION MANAGER): Per prior imaging from an outside institution [...] disease Assessment & Plan (03/14/2022 6:09 PM SERVICE STATION MANAGER): COPD is chronic and controlled. Continue current [...]
--- OUTSIDE RECORDS SUMMARY | 2024-09-21 13:34 | XMS_ITS | Encounter Summary ---
Author Organization [facility] Address [address] [place] [address] Care Team Providers Care Therapeutic Radiologist Name Role Phone Sherif Anguiano MD Primary Care Provider + Encounter Details Date Type Department Care Team (Late st Contact Info) Description 09/15/2024 Orders Only SL 5N ACUTE [address] [place] [id number] Yanira Alexandre DO [address] [facility] [place] [address] Social History Tobacco Use Types Packs/Day Years Used Date Smoking Tobacco: Former Cigarettes Smokeless Tobacco: Never Alcohol Use Standard Drinks/Week Comments No 0 (1 standard drink = 0.6 oz pur e alcohol) AUDIT-C Answer Date Recorded Q1: How often do you have a drink containing alcohol? Never 09/13/2024 Q2: How many drinks containi ng alcohol do you have on a typical day when you are drinking? Patient does not drink Q3: How often do you have si x or more drinks on one occasion? Less than monthly 09/13/2024 Overall Financial Resource Strain (CARDIA) Answe r Date Recorded How hard is it for you to pa y for the very basics like food, housing, medical care, and heating? Not very hard 09/13/2024 PHQ-2 Answer Date Recorded Patient Health Questionnaire-2 Score 0 09/15/2024 [facility] [place] [facility] Occupat ional Health - Occupational Stress Questionnaire Answer Date Recorded Do you feel stress - tense, restless, nervous, or anxious, or unable to sleep at night because your mind is troubled all the time - these days? Not at all 09/13/2024 Hunger Vital Sign Answer Date Recorded Within the past 12 months, y ou worried that your food would run out before you got the money to buy more. Never true 09/14/19 25 Within the past 12 months, t he food you bought just didn't last and you didn't have money to get more. Never true 09/13/2024 PRAPARE - Transportation Answer Date Re corded In the past 12 months, has l ack of transportation kept you from medical appointments or from getting medications? No 03/2024 In the past 12 months, has l ack of transportation kept you from meetings, work, or from getting things needed for daily living? No 09/13/2024 Housing Stability Vital Sign Answer Alessandro e Recorded In the last 12 months, was t here a time when you were not able to pay the mortgage or rent on time? No 09/13/2024 In the past 12 months, how m any times have you moved where you were living? 0 09/13/2024 At any time in the past 12 m [facility], were you homeless or living in a chcf (including now)? 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 Answer Date of Assessment Author No 09/13/2024 8:12 PM CDT Josseline Story RN * Is person blind or have serious difficulty seeing? Answer Date of Assessment Author No 09/13/2024 8:12 PM CDT Josseline Story, OLAYINKA * Does person have serious difficulty walking/climbing stairs? Answer Date of Assessment Author Yes 09/13/2024 8:12 PM CDT Josseline Story, OLAYINKA * Does person have difficulty dressing/bathing? Answer Date of Assessment Author No 09/13/2024 8:12 PM CDT Josseline Story, OLAYINKA * Does person have difficulty doing errands alone? Answer Date of Assessment Author No 09/13/2024 8:12 PM CDT Josseline Story RN * Over the past 2 weeks, how often have you been bothered by any of the following problems? Question Answer Date of Assessment Author Little interest or pleasure in doing things Not at all 09/15/2024 11:09 AM CDT Melonie Costa RN Feeling down, depressed, or hopeless Not at all 09/15/2024 11:09 AM CDT Melonie Costa RN Patient Health Questionnaire -2 Score 0 09/15/2024 11:09 AM CDT Melonie Costa RN documented as of this encounter Mental Status * Does person have difficulty concentrating/remembering/making decisions? Answer Entry Date Author No 09/13/2024 8:12 PM CDT Josseline Story RN documented in this encounter Plan of Treatment Upcoming Encounters Date Type Department Care Team (Late st Contact Info) Description 10/19/2024 8:30 AM CDT Video Visit [facility] - Neurology [address] [facility] [place] [phone] Ksenia Mayberry PA-C [address] [facility] [address] [place] [phone] documented as of this encounter Visit Diagnoses Not on filedocumented in this encounter Care Teams Therapeutic Radiologist Relationship Specialty Start Date End Date Sherif Anguiano MD [address] [address] PCP - General 06/08/17 documented as of this encounter
--- OUTSIDE RECORDS SUMMARY | 2024-09-21 13:34 | XMS_ITS | Referral Summary ---
Author Organization [facility] [address] Address [address] [place] [address] Care Team Providers Care Dental Appliance Mechanic Name Role Phone Sherif Anguiano MD Primary Care Prov ider Leonora Fierro MD Unavailable [phone] Gerard García MD PhD Unavailable Rolan Monzon MD Unavailable Jarvis Cano MD Unavailable Jordan Hernandez MD Unavailable Cesar Ashraf MD Unavailable Sherif Navarro MD Unavailable [phone] Shauna Solomon MD Unavailable [phone] Wale Gutierrez MD Unavailable [phone] Encounters Date Type Department Care Team Description 09/20/2024 Telephone [facility] Medical Group Cardiology [address] [facility] [address] [place] [address] Filipe Patel MD Transient Ischemic Attack 09/13/2024 Telephone [facility] 2 Radiation Oncology [address] [place] [address] Gemini Da Silva PA 09/06/2024 4:00 PM CDT Office Visit [facility] 2 Radiation Oncology [address] [place] [address] Gemini Da Silva PA Malignant neoplasm of right upper lobe of lung (HCC) (Primary Dx); Personal history of radiation therapy 08/30/2024 10:05 AM CDT - 08/30/2024 11:59 PM CDT Hospital Encounter [facility] [address] [place] [address] Malignant neoplasm of right upper lobe of lung (HCC) Discharge Disposition: Discharge to home or self care 06/27/2024 9:45 AM CDT Office Visit [facility] Medical Group Pulmonary [address] [place] [phone] Eric Jaramillo MD Obstructive sleep apnea (Primary [...] by mouth daily 30 tablet 11 4 Active B-complex with vitamin C (VITAMIN B [...] Weakness 09/11/2022 Coronary artery disease invo lving [place] coronary artery of [place] heart without angina pectoris 09/11/2022 Obstructive sleep apnea 04/10/2022 Assessment & Plan (06/27/2024 9:47 AM CDT): The patient continues to benefit from the auto titrating CPAP unit with a range of 5-15 cm water pressure for ongoing symptoms of BRIAN. Her DME supplier is [employer]. She will follow up here in 1 year. Assessment & Plan (03/24/2024 10:17 AM STILL OPERATOR GIN): The patient continues to benefit from the auto titrating CPAP unit with a range of 5-15 cm water pressure but has an old CPAP unit. I will order a new auto titrating CPAP unit for her with a range of 5-15 cm water pressure through [employer]. She will follow up here in 3 months. I will have her sign a release to get the home sleep test that she had long ago either through her primary care physician's office or [facility]. Occlusion and stenosis of vertebral artery 03/14 Assessment & Plan (03/14/2022 6:11 PM STILL OPERATOR GIN): Per prior duplex performed at an outside institution there was no mention of either vertebral artery. Patient had a CT scan which suggested stenosis of the left vertebral artery. Will follow up with carotid duplex. Bilateral carotid artery stenosis 03/14/2022 Assessment & Plan (05/11/2024 4:06 PM STILL OPERATOR GIN): Patient with no obvious carotid, vertebral stenosis on most recent CTA. She is being followed with surveillance studies annually. Will repeat 1 more surveillance study in a year with a bilateral carotid artery duplex. If no significant stenosis seen may follow up in the office on as needed basis Assessment & Plan (04/13/2023 9:24 AM STILL OPERATOR GIN): Bilateral carotid stenosis asymptomatic and nonprogressive. Remains [...] duplex. Assessment & Plan (03/28/2022 1:55 PM STILL OPERATOR GIN): Bilateral carotid duplex obtained for intermittent dizziness [...] duplex. Assessment & Plan (03/14/2022 6:10 PM STILL OPERATOR GIN): Per prior imaging from an outside institution [...] disease Assessment & Plan (03/14/2022 6:09 PM STILL OPERATOR GIN): COPD is chronic and controlled. Continue current [...] drink = 0.6 oz pur e alcohol) [facility] Utilities Answer Date Recorded In the past 12 months has e electric, gas, oil, or water company [...] often do you attend chur ch or sabianist services? Never 05/17/2024 Do you belong to any clubs o r organizations such as holiness groups, unions, fraternal or athletic groups, or [...] place to sleep or slept in a long term (including now)? No 09/11/2022 Housing Stability Vital Sign Answer Alessandro e Recorded In the last 12 months, was t here a time when you were not able to pay the mortgage or rent on time? No 05/17/2024 In the past 12 months, how m any times have you moved where you were living? 0 05/17/2024 At any time in the past [address] [facility], were you homeless or living in a long term (including now)? No 05/17/2024 Personal Safety Answer Date Recorded Have you ever been in or are you currently in a harmful physical or emotional relationship or is someone making you feel afraid or unsafe? Denies 05/23/2024 Comments No Sex and Gender Information Value Date Recorded Sex Assigned at Not on file Legal Sex Female 12:30 AM STILL OPERATOR GIN Gender Identity Not on file Sexual Orientation [...] Jamison Lama M.D. CH: VITALY Report ID: [id number] Reading Location: [place] [address] Procedure Note Jamison Lama Jr., MD - [...] Electronically signed by Jamison Lama M.D. CH: Report ID: [id number] Reading Location: [id number] us [facility] CASTRO IMG CT PROCEDURES Final Res ult * Colonoscopy (05/23/2024 11:54 AM CDT) Anatomical Region Laterality Modality Other Narrative Procedure Note Jaime Nolen MD - 05/23/2024 11:54 AM CDT [facility] GI ENDOSCOPY Patient Name: Heather Solorzano Procedure Date: 05/23/2024 11:54 AM Date of : 1955 Admit Type: Outpatient Age: 68 Gender: Female Attending MD: Jaime Nolen M.D. Room: [facility] ENDOSCOPY ROOM 06 Note Status: Finalized Procedure: [...] On: 05/23/2024 11:54 AM Recognized by the [place] [employer] for promoting quality in endoscopy Jaime Nolen MD ENDOSCOPY PROCEDURES Sarah l Result from Last 3 Months or Most Recently Relevant to Health Maintenance Insurance [facility] Address: [address] [address] [facility] Address: [address] [address] [address] [place] [id number] Advance Directives For more information, please contact: [phone] Documents on File Type Date Recorded Patient Courtesy Bus Driver Expl anation ADVANCE DIRECTIVE 01/26/2024 11:11 AM [facility] [employer] * Full Code (Latest Code Status on File) Date Activated Date Inactivated Comments 05/15/2024 2:25 PM 05/19/2024 3:49 PM * Full Code Date Activated Date Inactivated Comments 01/25/2024 2:58 PM 01/28/2024 4:22 PM * Full Code Date Activated Date Inactivated Comments 09/11/2022 12:01 AM 09/12/2022 12:16 AM * Full Code Date Activated Date Inactivated Comments 11/13/2021 12:08 AM 11/13/2021 7:59 PM Care Teams Dental Appliance Mechanic Relationship Specialty Start Date End Date Sherif Anguiano MD [address] [place] [address] PCP - General Family Medicine 10/04/18 Leonora Fierro MD [address] [facility] [address] [place] [address] Referring Physician Pulmonary Disease 03/21/21 Gerard García MD PhD [address] [place] [address] MEDICAL ONCOLOGY, [facility] [address] [place] [address] Medical Oncologist/Hematologis t Medical Oncology 03/21/21 Rolan Mon[place] [address] Consulting Physician Otolaryngology 04/03/21 Jarvis Cano MD [address] [place] [address] Surgeon Thoracic Surgery 05/01/21 Jordan Hernandez MD [address] [place] [address] Consulting Physician Cardiology 11/13/21 Cesar Ashraf MD [facility] [address] [place], [place] [id number] Surgeon Pulmonary Disease 02/11/22 Sherif Navarro MD [address] [facility] [address] [place] [address] [place], [place] [id number] Surgeon Vascular Surgery 03/04/22 Shauna Solomon MD [address] [facility] [address] [place] [address] [place] [address] Consulting Physician Interventional Cardiology 09/11/22 Wale Gutierrez MD [facility] [address] [place] [address] Radiation Oncologist Radiation Oncology 12/10/23
--- OUTSIDE RECORDS SUMMARY | 2024-09-21 13:34 | XMS_ITS | Clinical Summary ---
Author Organization [facility] [employer] Address [address] [place] [address] Care Team Providers Care Data Typist Name Role Phone Sherif Anguiano MD Primary Care Provider + Source Comments [facility] [employer],non-owned Affiliates and Associated Physician Practices is amultiple site organization consisting of ambulatory clinics and hospital sitesin [place], [place], [place] and [place]. This disclosure is being madepursuant to the Care Everywhere program and may not contain all information available regarding this patient. Last updated 17.[facility] [employer] Medications * Be aware that medications may not be up to date on this document. Alwaysverify current medications with the patient. meloxicam (MOBIC) 15 MG tablet 0 05/29/19 18 Active albuterol HFA (Proventil; Ventolin; Proair) 108 (90 Base) MCG/ACT inhaler Inhale 1 (one) puff by mouth 2 times daily Active aspirin EC (Ecotrin) 81 MG tablet Take 1 (one) tablet by mouth once daily 09/22/19 24 Active Biotin 5 MG TBDP Take 2 (two) tablets by mouth once daily Active Docusate Sodium (DSS) 100 MG Take 100 mg by mouth once daily Active Fluticasone-U meclidin-Christen nt (Trelegy) 100-62.5-25 MCG/ACT Inhale 1 (one) puff by mouth once daily 02/08/20 24 Active albuterol-ipr atropium (Duo-Neb) 0.5-2.5 (3) MG/3ML nebulizer solution Inhale 3 mL by mouth 3 times daily 06/16/19 25 Active losartan (Cozaar) 50 MG tablet Take 0.5 (one-half) tablet by mouth once daily 02/04/20 24 025 Active meclizine (Antivert) 25 MG tablet Take 1 (one) tablet by mouth 4 times daily as needed For dizziness. 06/04/19 24 Active metoprolol succinate XL 24hr (Toprol XL) 25 MG tablet Take 1 (one) tablet by mouth once daily 08/12/19 25 Active nitroGLYCERIN (Nitrostat) 0.4 MG tablet Dissolve 1 (one) tablet under the tongue as needed 02/04/20 24 Active topiramate (Topamax) 100 MG tablet Take 1 (one) tablet by mouth at bedtime 04/13/19 24 Active nortriptyline (Pamelor) 10 MG capsule Take 1 (one) capsule by mouth at bedtime 01/29/20 24 Active acetaminophen (Tylenol) 325 MG tablet Take 2 (two) tablets by mouth every 4 hours as needed Maximum allowable Acetaminophen amount = 4 Grams (4000 mg) / 24 hours. 09/16/19 25 Active aspirin (Aspirin) 81 MG chew tablet Take 1 (one) tablet by mouth once daily (chew and swallow) 30 tablet 2 09/16/19 25 Active atorvastatin (Lipitor) 40 MG tablet Take 1 (one) tablet by mouth at bedtime 30 tablet 2 09/16/19 25 Active clopidogrel (plaVIX) 75 MG tabletIndicat ions:Myocardi al Infarction Take 1 (one) tablet by mouth once daily Reasons: Heart Attack Active clopidogrel (plaVIX) 75 MG tablet Take 1 (one) tablet by mouth once daily 09/16/19 25 Active clopidogrel (plaVIX) 75 MG tablet Take 1 (one) tablet by mouth once daily for 21 days 21 tablet 09/16/19 25 025 Discontinued Active Problems Problem Noted Date Diagnosed Date Ischemic stroke 09/13/2024 Pain in joint 06/08/2017 Pain of right hand 06/08/2017 Pain of left hand 06/08/2017 Encounters Date Type Department Care Team Description 09/15/2024 Telephone [facility] - Neurology [address] [place] [address] Ksenia Mayberry PA-C Future Appointment 09/15/2024 Orders Only [facility] [address] [place] [address] Yanira Alexandre, 09/13/2024 5:18 PM CDT - 09/15/2024 11:50 AM CDT Hospital Encounter [facility] [address] [place] [address] John Hayward MD Neurology Discharge Disposition: Home or Self Care 09/13/2024 Travel from Last 3 Months Family History Medical History Relation Name Comments CAD (Coronary Artery Disease) Father Cancer - Lung Mother Other - Cardiac Sister Relation Name Status Comments Father Mother Sister Social History Tobacco Use Types Packs/Day Years [...] Recorded Patient Health Questionnaire-2 Score 0 09/15/2024 [facility] [place] of Occupat ional Health - Occupational Stress [...] any time in the past 12 m [facility], were you homeless or living in a fpc (including now)? No 09/13/2024 Comments Unknown Sex and Gender Information Value Date Recorded Sex Assigned at Not on file Legal Sex Female 5:46 PM [employer] Gender Identity Not on file Sexual Orientation Not on file Last Filed Vital Signs Vital Sign Reading Time Taken Comments Blood Pressure 121/60 09/15/2024 11:17 AM CDT Pulse 79 09/15/2024 11:17 AM CDT Temperature 36.5 C (97.7 F) 09/15/2024 11:17 AM CDT Respiratory Rate 18 09/15/2024 11:1 7 AM CDT Oxygen Saturation 98% 09/15/2024 11: 17 AM CDT Inhaled Oxygen Concentration - - Weight 87.5 kg (192 lb 14.4 oz) 09/14/2024 3:24 PM CDT Height 162.6 cm (5' 4.02) 09/14/2024 3:24 PM CD T Body Mass Index 33.09 09/14/2024 3:24 PM CDT Plan of Treatment Upcoming Encounters Date Type Department Care Team (Late st Contact Info) Description 10/19/2024 8:30 AM CDT Video Visit [facility] - Neurology [address] [place] [address] Ksenia Mayberry PA-C [facility] [facility] [address] [place] [address] Health Maintenance Due Date Last Done Comments BONE DENSITY TESTING 1954 COLOGUARD (AGES 45-75) - COL ON CA SCREENING 1954 CT COLONOGRAPHY - COLON CA SCREENING 1954 FIT - COLON CA SCREENING 1954 FLEX SIG - COLON CA SCREENING 1955 MAMMOGRAM 1955 HEPATITIS C SCREENING 06/07/1972 DTAP/TDAP/TD VACCINES (1 - Tdap) 1973 PNEUMOCOCCAL VACCINE 50+ (1 of 1 - PCV) 2004 ZOSTER VACCINE (1 of 2) 2004 COVID-19 VACCINE (3 - 2023-2 5 season) 2023 04/14/2021, 05/26/2020 MEDICARE AWV CALENDAR YEAR 2024 INFLUENZA VACCINE (#1) 2024 01/14/2024 Respiratory Syncytial Virus (RSV) Vaccine Pt: or over 60 yrs (1 - 1-dose 75+ series) 2029 COLON MONITORING 05/23/2034 05/23/2024 COLONOSCOPY - COLON CA SCREENING 05/23/2034 05/23/2024 Colorectal Cancer Screening 05/23/2034 DEPRESSION SCREENING Completed 09/13/2024 HEPATITIS B VACCINE Aged Out No longe r eligible based on patient's age to complete this topic HIB VACCINE Aged Out No longer eligi ble based on patient's age to complete this topic HPV VACCINE Aged Out No longer eligi ble based on patient's age to complete this topic MENINGOCOCCAL (Group B) VACCINE SHARED DECISION-MAKING Aged Out No longer eligible based on patient's age to complete this topic MENINGOCOCCAL GROUPS A/C/Y/W VACCINE Aged Out No longer eligible b ased on patient's age to complete this topic Procedures Procedure Name Priority Date/Time Associated Diagnosis Comments HEMOGLOBIN A1C Add on 09/15/2024 9:02 AM CDT MRI ANGIO BRAIN ARTERIAL WO CONT Routine 09/15/2024 5:38 AM CDT Ischemic stroke (HCC) Right arm weakness MRI ANGIO NECK W CONTRAST Routine 09/15/2024 5:37 AM CDT Ischemic stroke (HCC) Right arm weakness MRI BRAIN WO CONTRAST Routine 09/15/2024 5:37 AM CDT Ischemic stroke (HCC) Right arm weakness PHOSPHORUS BLOOD Routine 09/15/2024 3:17 AM CDT MAGNESIUM BLOOD Routine 09/15/2024 3:17 AM CDT CBC W/O DIFFERENTIAL Routine 09/15/2024 3:17 AM CDT BASIC METABOLIC PANEL (CALCIUM TOTAL) Routine 09/15/2024 3:17 AM CDT GLUCOSE - POINT OF CARE Routine 09/14/2024 3:45 PM CDT GLUCOSE - POINT OF CARE Routine 09/14/2024 11:43 AM CDT GLUCOSE - POINT OF CARE Routine 09/14/2024 7:55 AM CDT OT EVAL AND TREAT Routine 09/14/2024 6:1 6 AM CDT TROPONIN-I HIGH SENSITIVE REFLEX 1HOUR Timed 09/14/2024 5:24 AM CDT PHOSPHORUS BLOOD Routine 09/14/2024 3:10 AM CDT MAGNESIUM BLOOD Routine 09/14/2024 3:10 AM CDT LIPID PROFILE Routine 09/14/2024 3:10 AM CDT CBC W/O DIFFERENTIAL Routine 09/14/2024 3:10 AM CDT BASIC METABOLIC PANEL (CALCIUM TOTAL) Routine 09/14/2024 3:10 AM CDT TROPONIN-I HIGH SENSITIVE BASELINE + 1HR STAT 09/14/2024 3:10 AM CDT GLUCOSE - POINT OF CARE Routine 09/13/2024 10:19 PM CDT from Last 3 Months Results * HEMOGLOBIN A1C (09/15/2024 9:02 AM CDT) Hemoglobin A1c 5.5 <=5.6 % 09/15/2024 10:06 AM CDT [facility] Estimated Average Glucose 111 mg/dL 09/15/2024 10:06 AM CDT [facility] Comment: HbA1c Interpretation: Normal : < 5.7% Pre-diabetes: 5.7-6.4% Diabetes: Equal to or greater than 6.5% Test results diagnostic of diabetes should be repeated for confirmation. Treatment target values recommended by ADA and other clinical organizations should be used to evaluate metabolic control in patients. Reference: [place] [employer], Standards of Care in Diabetes -2020 In patients 70 years and older consider HbA1c target range of 7.0-7.5% (Reference: Felix Longoria et al. JAMDA. 2012) The Sebia assay for the measurement of HbA1c is a National Glycohemoglobin Standardization Program (NGSP) certified method. Blood BLOOD SPECIMEN / Unknown Lab Venipuncture / Unknown 09/15/2024 9:02 AM CDT 09/15/2024 9:02 AM CDT us John Hayward MD LAB - CHEMISTRY ORDERABLES Final Result [facility] [address] [address], [facility] [phone] * MRI Angio Brain Arterial Wo Cont (09/15/2024 5:38 AM CDT) Anatomical Region Laterality Modality Head Magnetic Resonan ce 09/15/2024 9:10 AM CDT Impressions 09/15/2024 9:36 AM CDT IMPRESSION: 1. No evidence of restricted diffusion to suggest an acute infarction. 2. No large arterial occlusions or significant stenoses identified in the head or neck. > Interpreting Provider: Padmini Sales MD on 09/15/2024 9:36 AM Narrative 09/15/2024 9:36 AM CDT PROCEDURE: MRI BRAIN WO CONTRAST, MRI ANGIO NECK W CONTRAST, MRI ANGIO BRAIN ARTERIAL WO CONT, DATE/TIME OF EXAM: 09/15/2024 5:41 AM, LOCATION [facility] INDICATION: I63.9: Ischemic stroke (HCC) R29.898: Right arm weakness ADDITIONAL CLINICAL INFORMATION: Ordering Provider Reason For Exam: Stroke Technologist Note: Does the patient have a pacemaker or defibrillator?->No Does the patient have metal implants or stents?->No Additional: None. CONTRAST: GADOBUTROL 1 MMOL/ML IV SSM SO:9 mL EXAMINATION: 1. Magnetic resonance imaging (MRI) of the brain without contrast 2. Magnetic resonance angiography (MRA) of the head without contrast 3. MRA of the neck with contrast TECHNIQUE: MRI of the brain was performed without contrast according to standard protocol. MR arteriography of the head was performed without contrast utilizing time of flight technique. MR arteriography of the neck was performed utilizing fluoroscopy triggered contrast enhanced technique after the uneventful administration of 9 mL GADAVIST intravenous gadolinium contrast. COMPARISON: No prior study is available for comparison at the time of this dictation. FINDINGS: Brain: There is a tiny focus of susceptibility artifact in the left centrum semiovale and the cortex of the left parietal in the left temporal lobes, compatible with prior microhemorrhages. Otherwise, normal evidence of acute or chronic hemorrhage is identified. No evidence of acute cerebral infarction is seen. There is mild cerebral volume loss with associated ex vacuo ventricular dilatation. There is a tiny cavum septum pellucidum. No mass effect or midline shift is seen. Periventricular and subcortical white matter FLAIR hyperintensities likely represent sequelae of chronic small vessel ischemic disease. Small perivascular spaces are seen along the inferior aspect of the basal ganglia. The corpus callosum and sella appear normal. The posterior fossa, brainstem, and craniocervical junction appear normal. Other than bilateral cataract extractions, the visualized portions of the orbits appear grossly unremarkable. There is mild paranasal sinus disease. The nasal septum is mildly deviated to the right anteriorly. There is mild opacification in the left mastoid air cells. Normal flow voids are demonstrated in the carotid arteries and basilar artery. The calvarium and visualized cervical spine appear normal. Angiographic findings: There is atherosclerotic disease of the aortic arch. The configuration of the brachiocephalic vessels is typical. There is atherosclerotic calcification of the innominate and subclavian arteries. There is atherosclerotic disease of the right carotid bifurcation and origin of the right internal carotid artery with less than 50 percent focal stenosis. The right common and internal carotid arteries otherwise appear normal. There is atherosclerotic disease of the left carotid bifurcation and origin of the left internal carotid artery with less than 50 percent focal stenosis. The left common and internal carotid arteries otherwise appear normal. The left vertebral artery is dominant. There are disregard this is smaller in caliber. There is atherosclerotic disease involving the cervical vertebral arteries without significant focal stenosis. The cervical carotid and vertebral arteries are tortuous. There is atherosclerotic disease involving the distal internal carotid arteries without significant focal stenosis. The anterior and middle cerebral arteries appear normal. There is atherosclerotic disease involving the distal vertebral arteries without significant focal stenosis. The basilar artery and posterior cerebral arteries appear normal. A small artery coming off the P1 segment of the left OVEREDGE MACHINE OPERATOR, directed posteriorly likely one of the short or long circumflex arteries, (series 1, image 112). No aneurysms, vascular occlusions, or intracranial stenoses are identified. Procedure Note Padmini Sales MD - 09/15/2024 PROCEDURE: MRI BRAIN WO CONTRAST, MRI ANGIO NECK W CONTRAST, MRI ANGIO BRAIN ARTERIAL WO CONT, DATE/TIME OF EXAM: 09/15/2024 5:41 AM, [facility] INDICATION: I63.9: Ischemic stroke (HCC) R29.898: Right arm weakness ADDITIONAL CLINICAL INFORMATION: Ordering Provider Reason For Exam: Stroke Technologist Note: Does the patient have a pacemaker ordefibrillator?->No Does the patient have metal implants or stents?->No Additional: None. CONTRAST: GADOBUTROL 1 MMOL/ML IV SSM SO:9 mL EXAMINATION: 1. Magnetic resonance imaging (MRI) of the brain without contrast 2. Magnetic resonance angiography (MRA) of the head without contrast 3. MRA of the neck with contrast TECHNIQUE: MRI of the brain was performed without contrast according to standard protocol. MR arteriography of the head was performed without contrast utilizing time of flight technique. MR arteriography of theneck was performed utilizing fluoroscopy triggered contrast enhancedtechnique after the uneventful administration of 9 mL GADAVIST intravenousgadolinium contrast. COMPARISON: No prior study is available for comparison at the time ofthis dictation. FINDINGS: Brain: There is a tiny focus of susceptibility artifact in the left centrum semiovale and the cortex of the left parietal in the left temporallobes, compatible with prior microhemorrhages. Otherwise, normal evidence ofacute or chronic hemorrhage is identified. No evidence of acute cerebral infarction is seen. There is mild cerebral volume loss with associatedex vacuo ventricular dilatation. There is a tiny cavum septum pellucidum.No mass effect or midline shift is seen. Periventricular and subcorticalwhite matter FLAIR hyperintensities likely represent sequelae of chronic small vessel ischemic disease. Small perivascular spaces are seen along the inferior aspect of the basal ganglia. The corpus callosum and sellaappear normal. The posterior fossa, brainstem, and craniocervical junctionappear normal. Other than bilateral cataract extractions, the visualized portions ofthe orbits appear grossly unremarkable. There is mild paranasal sinusdisease. The nasal septum is mildly deviated to the right anteriorly. There ismild opacification in the left mastoid air cells. Normal flow voids are demonstrated in the carotid arteries and basilar artery. The calvariumand visualized cervical spine appear normal. Angiographic findings: There is atherosclerotic disease of the aortic arch. The configurationof the brachiocephalic vessels is typical. There is atherosclerotic calcification of the innominate and subclavian arteries. There is atherosclerotic disease of the right carotid bifurcation and origin ofthe right internal carotid artery with less than 50 percent focal stenosis.The right common and internal carotid arteries otherwise appear normal.There is atherosclerotic disease of the left carotid bifurcation and origin of the left internal carotid artery with less than 50 percent focalstenosis. The left common and internal carotid arteries otherwise appear normal.The left vertebral artery is dominant. There are disregard this is smallerin caliber. There is atherosclerotic disease involving the cervicalvertebral arteries without significant focal stenosis. The cervical carotid and vertebral arteries are tortuous. There is atherosclerotic disease involving the distal internal carotid arteries without significant focal stenosis. The anterior and middle cerebral arteries appear normal. There is atherosclerotic diseaseinvolving the distal vertebral arteries without significant focal stenosis. The basilar artery and posterior cerebral arteries appear normal. A small artery coming off the P1 segment of the left OVEREDGE MACHINE OPERATOR, directed posteriorly likely one of the short or long circumflex arteries, (series 1, ). No aneurysms, vascular occlusions, or intracranial stenoses areidentified. IMPRESSION: 1. No evidence of restricted diffusion to suggest an acute infarction. 2. No large arterial occlusions or significant stenoses identified inthe head or neck. > Interpreting Provider: Padmini Sales MD on 09/15/2024 9:36 AM us John Hayward MD MR ORDERABLES Final Resul t * MRI Brain Wo Contrast (09/15/2024 5:37 AM CDT) Anatomical Region Laterality Modality Head Magnetic Resonan ce 09/15/2024 9:10 AM CDT Impressions 09/15/2024 9:36 AM CDT IMPRESSION: 1. No evidence of restricted diffusion to suggest an acute infarction. 2. No large arterial occlusions or significant stenoses identified in the head or neck. > Interpreting Provider: Padmini Sales MD on 09/15/2024 9:36 AM Narrative 09/15/2024 9:36 AM CDT PROCEDURE: MRI BRAIN WO CONTRAST, MRI ANGIO NECK W CONTRAST, MRI ANGIO BRAIN ARTERIAL WO CONT, DATE/TIME OF EXAM: 09/15/2024 5:41 AM, LOCATION [facility] INDICATION: I63.9: Ischemic stroke (HCC) R29.898: Right arm weakness ADDITIONAL CLINICAL INFORMATION: Ordering Provider Reason For Exam: Stroke Technologist Note: Does the patient have a pacemaker or defibrillator?->No Does the patient have metal implants or stents?->No Additional: None. CONTRAST: GADOBUTROL 1 MMOL/ML IV SSM SO:9 mL EXAMINATION: 1. Magnetic resonance imaging (MRI) of the brain without contrast 2. Magnetic resonance angiography (MRA) of the head without contrast 3. MRA of the neck with contrast TECHNIQUE: MRI of the brain was performed without contrast according to standard protocol. MR arteriography of the head was performed without contrast utilizing time of flight technique. MR arteriography of the neck was performed utilizing fluoroscopy triggered contrast enhanced technique after the uneventful administration of 9 mL GADAVIST intravenous gadolinium contrast. COMPARISON: No prior study is available for comparison at the time of this dictation. FINDINGS: Brain: There is a tiny focus of susceptibility artifact in the left centrum semiovale and the cortex of the left parietal in the left temporal lobes, compatible with prior microhemorrhages. Otherwise, normal evidence of acute or chronic hemorrhage is identified. No evidence of acute cerebral infarction is seen. There is mild cerebral volume loss with associated ex vacuo ventricular dilatation. There is a tiny cavum septum pellucidum. No mass effect or midline shift is seen. Periventricular and subcortical white matter FLAIR hyperintensities likely represent sequelae of chronic small vessel ischemic disease. Small perivascular spaces are seen along the inferior aspect of the basal ganglia. The corpus callosum and sella appear normal. The posterior fossa, brainstem, and craniocervical junction appear normal. Other than bilateral cataract extractions, the visualized portions of the orbits appear grossly unremarkable. There is mild paranasal sinus disease. The nasal septum is mildly deviated to the right anteriorly. There is mild opacification in the left mastoid air cells. Normal flow voids are demonstrated in the carotid arteries and basilar artery. The calvarium and visualized cervical spine appear normal. Angiographic findings: There is atherosclerotic disease of the aortic arch. The configuration of the brachiocephalic vessels is typical. There is atherosclerotic calcification of the innominate and subclavian arteries. There is atherosclerotic disease of the right carotid bifurcation and origin of the right internal carotid artery with less than 50 percent focal stenosis. The right common and internal carotid arteries otherwise appear normal. There is atherosclerotic disease of the left carotid bifurcation and origin of the left internal carotid artery with less than 50 percent focal stenosis. The left common and internal carotid arteries otherwise appear normal. The left vertebral artery is dominant. There are disregard this is smaller in caliber. There is atherosclerotic disease involving the cervical vertebral arteries without significant focal stenosis. The cervical carotid and vertebral arteries are tortuous. There is atherosclerotic disease involving the distal internal carotid arteries without significant focal stenosis. The anterior and middle cerebral arteries appear normal. There is atherosclerotic disease involving the distal vertebral arteries without significant focal stenosis. The basilar artery and posterior cerebral arteries appear normal. A small artery coming off the P1 segment of the left OVEREDGE MACHINE OPERATOR, directed posteriorly likely one of the short or long circumflex arteries, (series 1, image 112). No aneurysms, vascular occlusions, or intracranial stenoses are identified. Procedure Note Padmini Sales MD - 09/15/2024 PROCEDURE: MRI BRAIN WO CONTRAST, MRI ANGIO NECK W CONTRAST, MRI ANGIO BRAIN ARTERIAL WO CONT, DATE/TIME OF EXAM: 09/15/2024 5:41 AM, [facility] INDICATION: I63.9: Ischemic stroke (HCC) R29.898: Right arm weakness ADDITIONAL CLINICAL INFORMATION: Ordering Provider Reason For Exam: Stroke Technologist Note: Does the patient have a pacemaker ordefibrillator?->No Does the patient have metal implants or stents?->No Additional: None. CONTRAST: GADOBUTROL 1 MMOL/ML IV SSM SO:9 mL EXAMINATION: 1. Magnetic resonance imaging (MRI) of the brain without contrast 2. Magnetic resonance angiography (MRA) of the head without contrast 3. MRA of the neck with contrast TECHNIQUE: MRI of the brain was performed without contrast according to standard protocol. MR arteriography of the head was performed without contrast utilizing time of flight technique. MR arteriography of theneck was performed utilizing fluoroscopy triggered contrast enhancedtechnique after the uneventful administration of 9 mL GADAVIST intravenousgadolinium contrast. COMPARISON: No prior study is available for comparison at the time ofthis dictation. FINDINGS: Brain: There is a tiny focus of susceptibility artifact in the left centrum semiovale and the cortex of the left parietal in the left temporallobes, compatible with prior microhemorrhages. Otherwise, normal evidence ofacute or chronic hemorrhage is identified. No evidence of acute cerebral infarction is seen. There is mild cerebral volume loss with associatedex vacuo ventricular dilatation. There is a tiny cavum septum pellucidum.No mass effect or midline shift is seen. Periventricular and subcorticalwhite matter FLAIR hyperintensities likely represent sequelae of chronic small vessel ischemic disease. Small perivascular spaces are seen along the inferior aspect of the basal ganglia. The corpus callosum and sellaappear normal. The posterior fossa, brainstem, and craniocervical junctionappear normal. Other than bilateral cataract extractions, the visualized portions ofthe orbits appear grossly unremarkable. There is mild paranasal sinusdisease. The nasal septum is mildly deviated to the right anteriorly. There ismild opacification in the left mastoid air cells. Normal flow voids are demonstrated in the carotid arteries and basilar artery. The calvariumand visualized cervical spine appear normal. Angiographic findings: There is atherosclerotic disease of the aortic arch. The configurationof the brachiocephalic vessels is typical. There is atherosclerotic calcification of the innominate and subclavian arteries. There is atherosclerotic disease of the right carotid bifurcation and origin ofthe right internal carotid artery with less than 50 percent focal stenosis.The right common and internal carotid arteries otherwise appear normal.There is atherosclerotic disease of the left carotid bifurcation and origin of the left internal carotid artery with less than 50 percent focalstenosis. The left common and internal carotid arteries otherwise appear normal.The left vertebral artery is dominant. There are disregard this is smallerin caliber. There is atherosclerotic disease involving the cervicalvertebral arteries without significant focal stenosis. The cervical carotid and vertebral arteries are tortuous. There is atherosclerotic disease involving the distal internal carotid arteries without significant focal stenosis. The anterior and middle cerebral arteries appear normal. There is atherosclerotic diseaseinvolving the distal vertebral arteries without significant focal stenosis. The basilar artery and posterior cerebral arteries appear normal. A small artery coming off the P1 segment of the left OVEREDGE MACHINE OPERATOR, directed posteriorly likely one of the short or long circumflex arteries, (series 1, [id number]). No aneurysms, vascular occlusions, or intracranial stenoses areidentified. IMPRESSION: 1. No evidence of restricted diffusion to suggest an acute infarction. 2. No large arterial occlusions or significant stenoses identified inthe head or neck. > Interpreting Provider: Padmini Sales MD on 09/15/2024 9:36 AM us John Hayward MD MR ORDERABLES Final Resul t * MRI Angio Neck W Contrast (09/15/2024 5:37 AM CDT) Anatomical Region Laterality Modality Head Magnetic Resonan ce 09/15/2024 9:10 AM CDT Impressions 09/15/2024 9:36 AM CDT IMPRESSION: 1. No evidence of restricted diffusion to suggest an acute infarction. 2. No large arterial occlusions or significant stenoses identified in the head or neck. > Interpreting Provider: Padmini Sales MD on 09/15/2024 9:36 AM Narrative 09/15/2024 9:36 AM CDT PROCEDURE: MRI BRAIN WO CONTRAST, MRI ANGIO NECK W CONTRAST, MRI ANGIO BRAIN ARTERIAL WO CONT, DATE/TIME OF EXAM: 09/15/2024 5:41 AM, LOCATION [facility] INDICATION: I63.9: Ischemic stroke (HCC) R29.898: Right arm weakness ADDITIONAL CLINICAL INFORMATION: Ordering Provider Reason For Exam: Stroke Technologist Note: Does the patient have a pacemaker or defibrillator?->No Does the patient have metal implants or stents?->No Additional: None. CONTRAST: GADOBUTROL 1 MMOL/ML IV SSM SO:9 mL EXAMINATION: 1. Magnetic resonance imaging (MRI) of the brain without contrast 2. Magnetic resonance angiography (MRA) of the head without contrast 3. MRA of the neck with contrast TECHNIQUE: MRI of the brain was performed without contrast according to standard protocol. MR arteriography of the head was performed without contrast utilizing time of flight technique. MR arteriography of the neck was performed utilizing fluoroscopy triggered contrast enhanced technique after the uneventful administration of 9 mL GADAVIST intravenous gadolinium contrast. COMPARISON: No prior study is available for comparison at the time of this dictation. FINDINGS: Brain: There is a tiny focus of susceptibility artifact in the left centrum semiovale and the cortex of the left parietal in the left temporal lobes, compatible with prior microhemorrhages. Otherwise, normal evidence of acute or chronic hemorrhage is identified. No evidence of acute cerebral infarction is seen. There is mild cerebral volume loss with associated ex vacuo ventricular dilatation. There is a tiny cavum septum pellucidum. No mass effect or midline shift is seen. Periventricular and subcortical white matter FLAIR hyperintensities likely represent sequelae of chronic small vessel ischemic disease. Small perivascular spaces are seen along the inferior aspect of the basal ganglia. The corpus callosum and sella appear normal. The posterior fossa, brainstem, and craniocervical junction appear normal. Other than bilateral cataract extractions, the visualized portions of the orbits appear grossly unremarkable. There is mild paranasal sinus disease. The nasal septum is mildly deviated to the right anteriorly. There is mild opacification in the left mastoid air cells. Normal flow voids are demonstrated in the carotid arteries and basilar artery. The calvarium and visualized cervical spine appear normal. Angiographic findings: There is atherosclerotic disease of the aortic arch. The configuration of the brachiocephalic vessels is typical. There is atherosclerotic calcification of the innominate and subclavian arteries. There is atherosclerotic disease of the right carotid bifurcation and origin of the right internal carotid artery with less than 50 percent focal stenosis. The right common and internal carotid arteries otherwise appear normal. There is atherosclerotic disease of the left carotid bifurcation and origin of the left internal carotid artery with less than 50 percent focal stenosis. The left common and internal carotid arteries otherwise appear normal. The left vertebral artery is dominant. There are disregard this is smaller in caliber. There is atherosclerotic disease involving the cervical vertebral arteries without significant focal stenosis. The cervical carotid and vertebral arteries are tortuous. There is atherosclerotic disease involving the distal internal carotid arteries without significant focal stenosis. The anterior and middle cerebral arteries appear normal. There is atherosclerotic disease involving the distal vertebral arteries without significant focal stenosis. The basilar artery and posterior cerebral arteries appear normal. A small artery coming off the P1 segment of the left OVEREDGE MACHINE OPERATOR, directed posteriorly likely one of the short or long circumflex arteries, (series 1, image 112). No aneurysms, vascular occlusions, or intracranial stenoses are identified. Procedure Note Padmini Sales MD - 09/15/2024 PROCEDURE: MRI BRAIN WO CONTRAST, MRI ANGIO NECK W CONTRAST, MRI ANGIO BRAIN ARTERIAL WO CONT, DATE/TIME OF EXAM: 09/15/2024 5:41 AM, [facility] INDICATION: I63.9: Ischemic stroke (HCC) R29.898: Right arm weakness ADDITIONAL CLINICAL INFORMATION: Ordering Provider Reason For Exam: Stroke Technologist Note: Does the patient have a pacemaker ordefibrillator?->No Does the patient have metal implants or stents?->No Additional: None. CONTRAST: GADOBUTROL 1 MMOL/ML IV SSM SO:9 mL EXAMINATION: 1. Magnetic resonance imaging (MRI) of the brain without contrast 2. Magnetic resonance angiography (MRA) of the head without contrast 3. MRA of the neck with contrast TECHNIQUE: MRI of the brain was performed without contrast according to standard protocol. MR arteriography of the head was performed without contrast utilizing time of flight technique. MR arteriography of theneck was performed utilizing fluoroscopy triggered contrast enhancedtechnique after the uneventful administration of 9 mL GADAVIST intravenousgadolinium contrast. COMPARISON: No prior study is available for comparison at the time ofthis dictation. FINDINGS: Brain: There is a tiny focus of susceptibility artifact in the left centrum semiovale and the cortex of the left parietal in the left temporallobes, compatible with prior microhemorrhages. Otherwise, normal evidence ofacute or chronic hemorrhage is identified. No evidence of acute cerebral infarction is seen. There is mild cerebral volume loss with associatedex vacuo ventricular dilatation. There is a tiny cavum septum pellucidum.No mass effect or midline shift is seen. Periventricular and subcorticalwhite matter FLAIR hyperintensities likely represent sequelae of chronic small vessel ischemic disease. Small perivascular spaces are seen along the inferior aspect of the basal ganglia. The corpus callosum and sellaappear normal. The posterior fossa, brainstem, and craniocervical junctionappear normal. Other than bilateral cataract extractions, the visualized portions ofthe orbits appear grossly unremarkable. There is mild paranasal sinusdisease. The nasal septum is mildly deviated to the right anteriorly. There ismild opacification in the left mastoid air cells. Normal flow voids are demonstrated in the carotid arteries and basilar artery. The calvariumand visualized cervical spine appear normal. Angiographic findings: There is atherosclerotic disease of the aortic arch. The configurationof the brachiocephalic vessels is typical. There is atherosclerotic calcification of the innominate and subclavian arteries. There is atherosclerotic disease of the right carotid bifurcation and origin ofthe right internal carotid artery with less than 50 percent focal stenosis.The right common and internal carotid arteries otherwise appear normal.There is atherosclerotic disease of the left carotid bifurcation and origin of the left internal carotid artery with less than 50 percent focalstenosis. The left common and internal carotid arteries otherwise appear normal.The left vertebral artery is dominant. There are disregard this is smallerin caliber. There is atherosclerotic disease involving the cervicalvertebral arteries without significant focal stenosis. The cervical carotid and vertebral arteries are tortuous. There is atherosclerotic disease involving the distal internal carotid arteries without significant focal stenosis. The anterior and middle cerebral arteries appear normal. There is atherosclerotic diseaseinvolving the distal vertebral arteries without significant focal stenosis. The basilar artery and posterior cerebral arteries appear normal. A small artery coming off the P1 segment of the left OVEREDGE MACHINE OPERATOR, directed posteriorly likely one of the short or long circumflex arteries, (series 1, [id number]). No aneurysms, vascular occlusions, or intracranial stenoses areidentified. IMPRESSION: 1. No evidence of restricted diffusion to suggest an acute infarction. 2. No large arterial occlusions or significant stenoses identified inthe head or neck. > Interpreting Provider: Padmini Sales MD on 09/15/2024 9:36 AM us John Hayward MD MR ORDERABLES Final Resul t * (ABNORMAL) CBC W/O DIFFERENTIAL (09/15/2024 3:17 AM CDT) Only the most recent of2 resultswithin the time period is included. WBC 6.5 4.0 - 10.7 x10E9/L 09/15/2024 3:57 AM [facility] RBC Count 4.30 3.90 - 5.20 x10E12/L 09/15/2024 3:57 AM [facility] Hemoglobin 11.2(L) 11.9 - 15.8 g/dL 09/15/2024 3:57 AM [facility] Hematocrit 35.1 34.8 - 46.1 % 09/15/2024 3:57 AM [facility] MCV 81.6 80.0 - 98.0 fL 09/15/2024 3:57 AM [facility] MCH 26.0(L) 26.7 - 33.6 pg 09/15/2024 3:57 AM [facility] MCHC 31.9 31.7 - 36.3 g/dL 09/15/2024 3:57 AM [facility] RDW-CV 14.8 11.3 - 14.8 % 09/15/2024 3:57 AM [facility] Platelet Count 295 150 - 420 x10E9/L 09/15/2024 3:57 AM [facility] MPV 10.3 7.8 - 11.4 fL 09/15/2024 3:57 AM [facility] Blood BLOOD SPECIMEN / Unknown Lab Venipuncture / Unknown 09/15/2024 3:17 AM CDT 09/15/2024 3:50 AM CDT us John Hayward MD LAB - HEMATOLOGY ORDERABLES Final Result Performing Organization Address City/State/[facility] Co de Phone Number [facility] [address] [place] [address] [phone] * (ABNORMAL) BASIC METABOLIC PANEL (CALCIUM TOTAL) (09/15/2024 3:17 AM CDT) Only the most recent of2 resultswithin the time period is included. BUN 16 7 - 26 mg/dL 09/15/2024 4:19 AM [facility] Creatinine 0.84 0.56 - 0.96 mg/dL 09/15/2024 4:19 AM [facility] Sodium 141 136 - 145 mmol/L 09/15/2024 4:19 AM [facility] Potassium 3.8 3.5 - 4.5 mmol/L 09/15/2024 4:19 AM [facility] Chloride 112(H) 98 - 107 mmol/L 09/15/2024 4:19 AM [facility] CO2 21(L) 22 - 29 mmol/L 09/15/2024 4:19 AM [facility] Glucose 94 70 - 99 mg/dL 09/15/2024 4:19 AM [facility] Calcium 8.9 8.4 - 10.2 mg/dL 09/15/2024 4:19 AM [facility] Anion Gap 8 6 - 16 09/15/2024 4:19 AM [facility] BUN/Creatinine Ratio 19 7 - 23 09/15/2024 4:19 AM [facility] Osmolality Calculated 293 275 - 295 mOsm/kg 09/15/2024 4:19 AM [facility] eGFR by CKD-EPI 75(L) >=90 mL/min/1.7 3 m2 09/15/2024 4:19 AM [facility] Comment:Estimated Glomerular Filtration Rate (eGFR) calculated using the CKD-EPI Creatinine Equation (2020), per the National Kidney Foundation and [place] [employer]ph[employer] recommendations. Blood BLOOD SPECIMEN / Unknown Lab Venipuncture / Unknown 09/15/2024 3:17 AM CDT 09/15/2024 3:48 AM T John Hayward MD LAB - CHEMISTRY ORDERABLES Final Result [facility] [address] [place] [address], [facility] [phone] * PHOSPHORUS BLOOD (09/15/2024 3:17 AM CDT) Only the most recent of2 resultswithin the time period is included. Phosphorus 4.2 2.9 - 5.1 mg/dL 09/15/2024 4:19 AM [facility] Blood BLOOD SPECIMEN / Unknown Lab Venipuncture / Unknown 09/15/2024 3:17 AM CDT 09/15/2024 3:48 AM CDT us John Hayward MD LAB - CHEMISTRY ORDERABLES Final Result [address] [address], [place] [phone] * MAGNESIUM BLOOD (09/15/2024 3:17 AM CDT) Only the most recent of2 resultswithin the time period is included. Magnesium 2.2 1.6 - 2.6 mg/dL 09/15/2024 4:19 AM CDT [facility] Blood BLOOD SPECIMEN / Unknown Lab Venipuncture / Unknown 09/15/2024 3:17 AM CDT 09/15/2024 3:48 AM CDT us John Hayward MD LAB - CHEMISTRY ORDERABLES Final Result Performing Organization Address [facility]/ZIP Co de Phone Number [address] [address], [place] [phone] * (ABNORMAL) GLUCOSE - POINT OF CARE (09/14/2024 3:45 PM CDT) Only the most recent of4 resultswithin the time period is included. Glucose WB/POC 121(H) 70 - 99 mg/dL 09/14/2024 3:51 PM CDT [facility] Specimen Type Arterial/C apillary 09/14/2024 3:51 PM CDT [facility] Blood BLOOD SPECIMEN / Unknown 09/14/2024 3:45 PM CDT 09/14/2024 3:51 PM CDT us John Hayward MD LAB - POINT OF CARE ORDERAB LES Final Result Performing Organization Address [facility]/ZIP Co de Phone Number [address] [address], [place] [phone] * TROPONIN-I HIGH SENSITIVE REFLEX 1HOUR (09/14/2024 5:24 AM CDT) Pathologist [facility] Troponin I High Sensitive <3 <=14 ng/L 09/14/2024 6:10 AM CDT [facility] Delta Troponin I HS 09/14/2024 6:10 AM CDT [facility] Comment:Delta value intentio teodora not calculated. Baseline to 1 hour specimen collection interval exceeded. Blood BLOOD SPECIMEN / Unknown Lab Venipuncture / Unknown 09/14/2024 5:24 AM CDT 09/14/2024 5:36 AM CDT us John Hayward MD LAB - CHEMISTRY ORDERABLES Final Result [address] [address], [facility] [phone] * TROPONIN-I HIGH SENSITIVE BASELINE + 1HR (09/14/2024 3:10 AM CDT) [facility] Troponin I High Sensitive <3 <=14 ng/L 09/14/2024 4:07 AM CDT [facility] Blood BLOOD SPECIMEN / Unknown Lab Venipuncture / Unknown 09/14/2024 3:10 AM CDT 09/14/2024 3:28 AM CDT us John Hayward MD LAB - CHEMISTRY ORDERABLES Final Result [address] [address], [place] [phone] * (ABNORMAL) LIPID PROFILE (09/14/2024 3:10 AM CDT) [facility] Cholesterol Total 187 <200 mg/dL 09/14/2024 4:03 AM CDT [facility] HDL 45 >40 mg/dL 09/14/2024 4:03 AM T [facility] Comment: ATP III Classification of HDL Cholesterol: <40 mg/dL: Considered a major risk factor. >60 mg/dL: Considered a negative risk factor. LDL Calculated 119(H) <100 mg/dL 09/14/2024 4:03 AM CDT [facility] Comment: ATP III Classification of LDL Cholesterol: <100 mg/dL: Optimal 100 - 129 mg/dL: Near Optimal/Above Optimal 130 - 159 mg/dL: Borderline High 160 - 189 mg/dL: High >190 mg/dL: Very High LDL is calculated using the Friedewald equation. Triglycerides 113 <150 mg/dL 09/14/2024 4:03 AM CDT [facility] Comment: ATP III Classification of Triglycerides: <150 mg/dL: Normal 150 - 199 mg/dL: Borderline High 200 - 400 mg/dL: High >500 mg/dL: Very High Blood BLOOD SPECIMEN / Unknown Lab Venipuncture / Unknown 09/14/2024 3:10 AM CDT 09/14/2024 3:28 AM CDT John Hayward MD LAB - CHEMISTRY ORDERABLES Final Result [facility] [address] [place] [address], [facility] [phone] from Last 3 Months Insurance [employer] MANAGED MEDICARE ADV [facility] MANAGED MEDICARE ADV Advance Directives * Full Code (Latest Code Status on File) Date Activated Date Inactivated Comments 09/13/2024 5:47 PM 09/15/2024 1:07 PM Care Teams Data Typist Relationship Specialty Start Date End Date Sherif Anguiano MD [address] [place] [id number] PCP - General 06/08/17
--- OUTSIDE RECORDS SUMMARY | 2024-09-21 13:34 | XMS_ITS | Clinical Summary ---
Author Organization [facility] [place] [address] Address [address] [place] [address] Care Team Providers Care Oyster Buyer Name Role Phone Sherif Anguiano MD Primary Care Prov ider Leonora Fierro MD Unavailable [phone] Gerard García MD PhD Unavailable Rolan Monzon MD Unavailable [phone] Jarvis Cano MD Unavailable Jordan Hernandez MD Unavailable Cesar Ashraf MD Unavailable Sherif Navarro MD Unavailable [phone] Shauna Solomon MD Unavailable [phone] Wale Gutierrez MD Unavailable [phone] Allergies Active Allergy Reactions Criticality Noted [...] Weakness 09/11/2022 Coronary artery disease invo lving [place] coronary artery of [place] heart without angina pectoris 09/11/2022 Obstructive sleep apnea 04/10/2022 Assessment & Plan (06/27/2024 9:47 AM CDT): The patient continues to benefit from the auto titrating CPAP unit with a range of 5-15 cm water pressure for ongoing symptoms of BRIAN. Her DME supplier is [employer]. She will follow up here in 1 year. Assessment & Plan (03/24/2024 10:17 AM IRON CARRIER): The patient continues to benefit from the auto titrating CPAP unit with a range of 5-15 cm water pressure but has an old CPAP unit. I will order a new auto titrating CPAP unit for her with a range of 5-15 cm water pressure through [employer]. She will follow up here in 3 months. I will have her sign a release to get the home sleep test that she had long ago either through her primary care physician's office or [employer]. Occlusion and stenosis of vertebral artery 03/14 Assessment & Plan (03/14/2022 6:11 PM IRON CARRIER): Per prior duplex performed at an outside institution there was no mention of either vertebral artery. Patient had a CT scan which suggested stenosis of the left vertebral artery. Will follow up with carotid duplex. Bilateral carotid artery stenosis 03/14/2022 Assessment & Plan (05/11/2024 4:06 PM IRON CARRIER): Patient with no obvious carotid, vertebral stenosis on most recent CTA. She is being followed with surveillance studies annually. Will repeat 1 more surveillance study in a year with a bilateral carotid artery duplex. If no significant stenosis seen may follow up in the office on as needed basis Assessment & Plan (04/13/2023 9:24 AM IRON CARRIER): Bilateral carotid stenosis asymptomatic and nonprogressive. Remains [...] duplex. Assessment & Plan (03/28/2022 1:55 PM IRON CARRIER): Bilateral carotid duplex obtained for intermittent dizziness [...] duplex. Assessment & Plan (03/14/2022 6:10 PM IRON CARRIER): Per prior imaging from an outside institution [...] disease Assessment & Plan (03/14/2022 6:09 PM IRON CARRIER): COPD is chronic and controlled. Continue current medical therapy. Encounters Date Type Department Care Team Description 09/20/2024 Telephone [facility] Cardiology [address] [place] [address] Filipe Patel MD Transient Ischemic Attack 09/13/2024 Telephone [facility] Office Building 2 Radiation Oncology [address] [place] [address] Gemini Da Silva PA 09/06/2024 4:00 PM CDT Office Visit [facility] Building 2 Radiation Oncology [address] [place] [address] Gemini Da Silva PA Malignant neoplasm of right upper lobe of lung (HCC) (Primary Dx); Personal history of radiation therapy 08/30/2024 10:05 AM CDT - 08/30/2024 11:59 PM CDT Hospital Encounter [facility] [address] [place] [address] Malignant neoplasm of right upper lobe of lung (HCC) Discharge Disposition: Discharge to home or self care 06/27/2024 9:45 AM CDT Office Visit [facility] Pulmonary [place] [address] [place] [address] [address] [place] [address] Eric Jaramillo MD Obstructive sleep apnea (Primary [...] drink = 0.6 oz pur e alcohol) [employer] Answer Date Recorded In the past 12 months has e [employer], gas, oil, or water [employer] threatened to shut off services in your [...] often do you attend chur ch or congregational services? Never 05/17/2024 Do you belong to any clubs o r organizations such as restorationism groups, unions, fraternal or athletic groups, or [...] place to sleep or slept in a halfway (including now)? No 09/11/2022 Housing Stability Vital Sign Answer Alessandro e Recorded In the last 12 months, was t here a time when you were not able to pay the mortgage or rent on time? No 05/17/2024 In the past 12 months, how m any times have you moved where you were living? 0 05/17/2024 At any time in the past 12 m [facility], were you homeless or living in a halfway (including now)? No 05/17/2024 Personal Safety Answer Date Recorded Have you ever been in or are you currently in a harmful physical or emotional relationship or is someone making you feel afraid or unsafe? Denies 05/23/2024 Comments No Sex and Gender Information Value Date Recorded Sex Assigned at Not on file Legal Sex Female 12:30 AM IRON CARRIER Gender Identity Not on file Sexual Orientation [...] Additional history exists Influenza Vaccine (#1) 2024 , 11/25/2023, 02/19/2022, Additional history exists Fall Risk [...] Jamison Lama M.D. CH: VITALY Report ID: [id number] Reading Location: [id number] Procedure Note Jamison Lama Jr., MD - [...] by Jamison Lama M.D. CH: Report ID: [id number] Reading Location: [place] [address] PROCEDURES Final Res ult * Colonoscopy (05/23/2024 11:54 AM CDT) Anatomical Region Laterality Modality Other Narrative Procedure Note Jaime Nolen MD - 05/23/2024 11:54 AM CDT [facility] END[facility]COPY Patient Name: Heather Solorzano Procedure Date: 05/23/2024 11:54 AM Date of : 1955 Admit Type: Outpatient Age: 68 Gender: Female Attending MD: Jaime Nolen M.D. Room: [facility] ENDOSCOPY ROOM 06 Note Status: Finalized [...] On: 05/23/2024 11:54 AM Recognized by the [employer] for promoting quality in endoscopy Jaime Nolen MD ENDOSCOPY PROCEDURES Sarah l Result from Last 3 Months or Most Recently Relevant to Health Maintenance Insurance [employer] MEDICARE ADVANTAGE Advance Directives For more information, please contact: [phone] Documents on File Type Date Recorded Patient Plastic Straightening Roll Operator Expl anation ADVANCE DIRECTIVE 01/26/2024 11:11 AM [facility] er of Supervisor [employer] Education-Medical * Full Code (Latest Code Status on File) Date Activated Date Inactivated Comments 05/15/2024 2:25 PM 05/19/2024 3:49 PM * Full Code Date Activated Date Inactivated Comments 01/25/2024 2:58 PM 01/28/2024 4:22 PM * Full Code Date Activated Date Inactivated Comments 09/11/2022 12:01 AM 09/12/2022 12:16 AM * Full Code Date Activated Date Inactivated Comments 11/13/2021 12:08 AM 11/13/2021 7:59 PM Care Teams Oyster Buyer Relationship Specialty Start Date End Date Sherif Anguiano MD [address] [place] [address] PCP - General Family Medicine 10/04/18 Leonora Fierro MD [address] [place], [place] [id number] Referring Physician Pulmonary Disease 03/21/21 Gerard García MD PhD [address] [facility], [facility] [address] [place] [address] Medical Oncologist/Hematologis t Medical Oncology 03/21/21 Rolan Monzon MD [address] [place] [address] Consulting Physician Otolaryngology 04/03/21 Jarvis Cano MD [address] [place] [address] Surgeon Thoracic Surgery 05/01/21 Jordan Hernandez MD [address] [place] [address] Consulting Physician Cardiology 11/13/21 Cesar Ashraf MD [address] [facility] [address] [place] [address] Surgeon Pulmonary Disease 02/11/22 Sherif Navarro MD [address] [facility] [address] [place] [address] [place] [address] Surgeon Vascular Surgery 03/04/22 Shauna Solomon MD [address] [facility] [address] [place] [address] [place] [address] Consulting Physician Interventional Cardiology 09/11/22 Wale Gutierrez MD [address] [facility] [address] [place] [address] Radiation Oncologist Radiation Oncology 12/10/23
--- OUTSIDE RECORDS SUMMARY | 2024-09-21 13:34 | XMS_ITS | Encounter Summary ---
Author Organization [facility] Healthcare Address [address] [place] [address] Care Team Providers Care Magnetic Prospecting Operator Name Role Phone Sherif Anguiano MD Primary Care Prov ider Leonora Fierro MD Unavailable [phone] Gerard García MD PhD Unavailable Rolan Monzon MD Unavailable [phone] Wale Gutierrez MD Unavailable [phone] Jarvis Cano MD Unavailable Jordan Hernandez MD Unavailable Cesar Ashraf MD Unavailable [phone] Sherif Navarro MD Unavailable [phone] Shauna Solomon MD Unavailable [phone] Wale Gutierrez MD Unavailable [phone] Encounter Details Date Type Department Care Team (Late st Contact Info) Description 10/04/2018 Orders Only [facility] [place] [address] [place] [address] Scanning, Provider Social History Tobacco Use Types Packs/Day Years Used Date Smoking Tobacco: Every Day Comments Unknown Sex and Gender Information Value Date Recorded Sex Assigned at Not on file 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ICAL ONCOL[facility]Y, [address] [place] [address] Medical Oncologist/Hematologis t Medical Oncology 03/21/21 [place] [place] [address] Consulting Physician Otolaryngology 04/03/21 Wale [place] [address] Radiation Oncologist Radiation Oncology 04/03/21 Jarvis Cano MD [address] [place] [address] Surgeon Thoracic Surgery 05/01/21 Jordan Hernandez MD [address] [facility] [address] [place] [address] Consulting Physician Cardiology 11/13/21 Cesar Ashraf MD [address] [place] [address] Surgeon Pulmonary Disease 02/11/22 Sherif Navarro MD [address] [facility] [address] [facility] [place] [place] [address] [place] [address] Surgeon Vascular Surgery 03/04/22 Shauna Solomon MD [address] [facility] [address] [place] [address] [place] [address] Consulting Physician Interventional Cardiology 09/11/22 Wale Gutierrez MD [address] [place] [address] Radiation Oncologist Radiation Oncology 12/10/23 documented as of this encounter
== END 2024-09-21 13:21 | disposition home or self-care (01) ==
PROVIDERS: PCP Family Medicine; Visit Provider Family Medicine
DX: R06.02 Shortness of breath (principal)
CPT/HCPCS: 71046

== ENCOUNTER 2024-09-30 15:52 | Emergency (ER) | payer MEDICARE, SELFPAY ==
--- NOTE | ~2024-09-30 | XR_ITS ---
EXAM: XR foot LT min 3V DATE: 09/30/2024 16:11 HISTORY: trauma, bruising, pain top of LT foot. yesterday . COMPARISON: X-ray left ankle 07/08/2017. FINDINGS: Normal mineralization. No fracture or dislocation. No lytic or blastic lesion. Mild scatte red degenerative changes.. Mild Achilles and plantar enthesopathy. No erosion or periosteal change. S oft tissues within normal limits. IMPRESSION: No acute osseous finding in the left foot. Reviewed, dictated and finalized at location K.
--- NOTE | 2024-09-30 15:53 | ED.LOWEXIN ---
HPI - Extremity Injury (Lower) General Chief Complaint: Extremity Injury, Lower Stated Complaint: swelling in left foot Time Seen by Provider: 09/30/24 15:53 Source: patient Mode of arrival: ambulatory Limitations: no limitations History of Present Illness HPI Narrative: Patient is a 6-year-old female who presents with swelling, bruising and pain to the top of left foot. Patient dropped a container of laundry detergent off of a shelf roughly 3-4 feet high and landed on the top of her foot. Patient immediate pain and symptoms have worsened since. Related Data Home Medications ?Medication ?Instructions ?Recorded ?Confirmed ?Last Taken ?Type biotin 5,000 mcg disintegrating See Rx Instructions PO DAILY 05/19/22 09/30/24 Unknown History tablet herbal drugs tablet PO 05/19/22 09/21/24 Unknown History lactobacillus combination no.4 3 3,000 mmu cells PO DAILY 05/19/22 09/30/24 Unknown History billion cell capsule (Probiotic) magnesium 250 mg tablet 250 mg PO DAILY 05/19/22 09/30/24 Unknown History multivitamin 1 tablet PO DAILY 05/19/22 09/21/24 Unknown History yxauvpkc-vbxqlk-sgq-ydm-leu-ldwi-horse tablet PO DAILY 05/19/22 09/21/24 Unknown History 100 mg-100 mg-100 mg-125 mg tab vitamin B12 2,500 mcg-folic acid tablet PO 05/19/22 09/21/24 Unknown History 400 mcg disintegrating tablet vitamin D3 125 mcg (5,000 1 tablet PO DAILY 05/19/22 09/30/24 Unknown History unit)-folic acid 1 mg tablet metoprolol tartrate 25 mg tablet 25 mg PO DAILY 02/26/23 09/21/24 Unknown History nortriptyline 10 mg capsule mg 09/30/24 Unknown History Allergies Allergy/AdvReac Type Severity Reaction Status Date / Time CILANTRO Allergy Vomiting Verified 09/30/24 16:00 lisinopril AdvReac Mild Cough Verified 09/30/24 16:00 ciprofloxacin (From Cipro) AdvReac Unknown Rash Verified 09/30/24 16:00 Penicillins AdvReac Unknown Rash Verified 09/30/24 16:00 propranolol AdvReac Unknown Ulcer Verified 09/30/24 16:00 trouble nitroglycerin AdvReac Hypotension Verified 09/30/24 16:00 Review of Systems Review of Systems: All systems reviewed & are unremarkable except as noted in HPI and below Constitutional: Constitutional: Denies body ache(s), Denies chills, Denies fatigue, Denies fever(s), Denies headache(s), Denies malaise and Denies weakness Eyes: Eyes: Denies blurry vision, Denies irritation and Denies loss of vision ENT: Denies otalgia, Denies headache(s), Denies nasal discharge, Denies sinus pain and Denies sore throat Cardiovascular: Cardiovascular: Denies chest pain, Denies irregular heart rhythm and Denies dyspnea Respiratory: Respiratory: Denies dyspnea Gastrointestinal: Gastrointestinal: Denies abdominal pain, Denies melena, Denies hematochezia, Denies diarrhea, Denies nausea and Denies vomiting Musculoskeletal: Musculoskeletal: Denies back pain, Denies myalgias, Reports arthralgias and Reports joint swelling Integumentary/Breasts: Skin/Breast: Denies pruritus and Denies rash Neurologic: Denies headache(s), Denies loss of vision and Denies weakness Psychiatric: Psychiatric: Reports no additional psychiatric complaints Endocrine: Endocrine: Denies fatigue PMF Past Medical History Medical History GERD (gastroesophageal reflux disease) History of ST elevation myocardial infarction (STEMI) History of lung cancer History of CVA (cerebrovascular accident) Hyperlipidemia History of trigger finger (~01/2017) right ESR raised Obstructive sleep apnea Muscle cramps (~12/2018) RT lower extremity Inflammatory arthritis COPD (chronic obstructive pulmonary disease) Surgical History Surgical History S/P angioplasty with stent CA with stents placed x2 2019 History of carpal tunnel release (~08/2016) left History of carpal tunnel release (~07/2016) Right H/O: hysterectomy Family History Family History Mother Lung cancer Grandparent COPD (chronic obstructive pulmonary disease) Father Acute myocardial infarction Lung cancer Grandparent Congestive heart failure Social History Social History Social History: Caffeine-daily Smoking packs per day: 2 Smoking cigarettes per day: 40.0 Years smoked: 30 Smoking pack-years: 60.00 Smoking status: Former smoker Tobacco type: cigarettes Second hand tobacco smoke exposure: No Smoking end date: 03/16/16 Alcohol intake: never Substance use: never Substance use type: does not use Lack of Transportation: No Lack of Food: Never True Current Housing: I Have Housing Concerned About Future Housing: No Difficulty Paying Gas/Electric Bills: No Difficulty Paying for Meds: No Currently Unemployed: No Education: High School Diploma/GED Difficulty w/ Childcare or Family Care: No Living arrangements: alone Occupation/Education: occupation Gender identity (if verbalized by the patient): Female Sexual Orientation (if Verbalized by the Patient): Straight or Heterosexual Spiritual care concerns: No Agree to blood products: Yes Comments At time of signature, agree with nursing past medical, surgical, social and family history. There is no relevant family history pertinent to the presenting complaint. Exam Const: General: cooperative, healthy appearing, comfortable, no acute distress and well nourished Nutritional Appearance: well nourished Orientation/consciousness: patient oriented x3 Limitations: no limitations HENMT: Head: normal to inspection, normocephalic and atraumatic Ears: hearing grossly normal bilaterally and external ears normal Face/Nose/Sinus: Normal external nose present, normal facial exam and face symmetric Face and sinus: normal facial exam and face symmetric Mouth: Yes lip normal Eyes: General: appearance normal, both eyes and all related structures Alignment and Position: alignment normal and position normal Periorbital: periorbital findings normal Eyelids: eyelids normal Pupils: Equal, round and reactive pupils present EOM: EOMs intact bilaterally Neck: Neck: normal visual inspection, full ROM and supple Chest: Chest palpation & inspection: normal inspection of the chest Resp: Effort & Inspection: normal respiratory effort and able to speak in complete sentences Auscultation: clear to auscultation bilaterally Cardio: Rate: regular rate Rhythm: regular rhythm Heart sounds: S1 normal heart sound present and S2 normal heart sound present GI: Inspection: normal to inspection Skin: General skin exam: normal color and no rashes or lesions noted Neuro: General: patient oriented x3 and moves all extremities Cranial nerves: Yes Equal, round and reactive pupils present Speech: normal speech Gait exam (Neuro): Normal gait present Extrem: General: normal to inspection, full ROM and no edema Left lower extremity: ankle Details: normal to inspection and normal ROM; no tenderness, no swelling and achilles tendon exam normal and foot Details: normal capillary refill, tenderness Location: of the dorsal foot, toes with normal ROM, ecchymosis dorsal , vascular exam Details: dorsalis pedis pulse present and normal capillary refill and tendon exam active flexion normal and active extension normal Psych: Appearance: grossly normal and well kempt Mental Status: mental status grossly normal Speech and movement: Normal speech and movement present Affect: normal affect Attitude: cooperative Thought process: Normal thought process present Course Course Emergency Course: Patient is aware of diagnosis, understands and agrees to treatment plan. Anticipatory guidance given. Patient agrees to follow-up as directed and is aware of reasons to seek care at the emergency department. Portions of this record may have been created with voice recognition software Level of Care: Express Care Visit Vital Signs Vital signs: Vital Signs Temperature 36.9 C 09/30/24 16:01 Pulse Rate 69 09/30/24 16:01 Respiratory Rate 18 09/30/24 16:01 Blood Pressure 137/66 09/30/24 16:01 Pulse Oximetry 100 09/30/24 16:01 Oxygen Delivery Room Air 09/30/24 16:01 Temperature 36.9 C 09/30/24 16:01 Pulse Rate 69 09/30/24 16:01 Respiratory Rate 18 09/30/24 16:01 Blood Pressure 137/66 09/30/24 16:01 Pulse Oximetry 100 09/30/24 16:01 Oxygen Delivery Room Air 09/30/24 16:01 Reviewed MDM - Extremity Injury (Lower) MDM Narrative Medical decision making narrative: Vishal wrap applied Pt well hydrated appearing, in no respiratory distress, hemodynamically stable. Recommend supportive care. The patient is stable at time of discharge the clinical impression was discussed and the patient was given the opportunity to ask questions, which were addressed as completely as possible given the information available at present. Anticipatory guidance and return to care precautions were discussed and the importance of primary care follow-up was stressed and encouraged. The patient voiced understanding of the plan, indications to return, and the need for follow-up. Exam findings show no acute concerns or changes Patient is appropriate for outpatient treatment and follow-up. Differential Diagnosis Differential diagnosis: Likely other (Foot fracture, foot strain, contusion) Imaging Data Radiologist's impression: EXAM: XR foot LT min 3V DATE: 09/30/2024 16:11 HISTORY: trauma, bruising, pain top of LT foot. yesterday . COMPARISON: X-ray left ankle 07/08/2017. FINDINGS: Normal mineralization. No fracture or dislocation. No lytic or blastic lesion. Mild scattered degenerative changes.. Mild Achilles and plantar enthesopathy. No erosion or periosteal change. Soft tissues within normal limits. IMPRESSION: No acute osseous finding in the left foot. Discharge Plan Discharge Clinical Impression: Contusion of foot, left Qualifiers: Encounter type: initial encounter Qualified Code(s): S90.32XA - Contusion of left foot, initial encounter Patient Disposition: Home Condition: Stable Instructions: Foot Contusion (ED) Additional Instructions: Xray showed no fracture. Minimize activities that aggravate the condition The RICE protocol. Follow the RICE protocol as soon as possible after your injury: Rest your ankle by not walking on it. Ice should be immediately applied to keep the swelling down. It can be used for 20 to 30 minutes, three or four times daily. Do not apply ice directly to your skin. Compression dressings, bandages or vishal-wraps will immobilize and support your injured foot. Elevate your foot above the level of your heart as often as possible during the first 48 hours. Medication: Nonsteroidal anti-inflammatory drugs (NSAIDs) such as ibuprofen and naproxen can help control pain and swelling. Because they improve function by both reducing swelling and controlling pain, they are a better option for mild sprains than narcotic pain medicines. Please schedule a follow-up visit with your personal physician for further evaluation and treatment within 1week OR If your symptoms persist, change or worsen significantly before you can contact your personal physician then please, without delay, go to the emergency department for further evaluation. Patient Language: Azerbaijani Prescriptions: No Action nortriptyline 10 mg capsule pantoprazole 20 mg tablet,delayed release (DR/EC) 20 mg PO QAM Qty: 90 3RF vitamin V14-vyxne acid 2,500-400 mcg tablet,disintegrating PO vitamin D3-folic acid 125 mcg (5,000 unit)-1 mg tablet 1 tablet PO DAILY Probiotic 3 billion cell capsule 3,000 mmu cells PO DAILY Rx Instructions: administer with a meal multivitamin Tablet 1 tablet PO DAILY dmkw-xkqk-dup-zla-eqs-xzru-hor [phone] mg tablet PO DAILY magnesium 250 mg tablet 250 mg PO DAILY herbal drugs Tablet PO biotin 5,000 mcg tablet,disintegrating See Rx Instructions PO DAILY Rx Instructions: orally daily; metoprolol tartrate 25 mg tablet 25 mg PO DAILY Breztri Aerosphere 160-9-4.8 mcg/actuation HFA aerosol inhaler 2 inh inhalation BID Qty: 10.7 0RF Repatha SureClick 140 mg/mL pen injector 140 mg subcut .complex Qty: 2 3RF Rx Instructions: 140 mg once every 2 weeks meclizine 25 mg tablet 25 mg PO Q6H PRN (Reason: dizziness) Qty: 20 0RF albuterol sulfate 90 mcg/actuation HFA aerosol inhaler See Rx Instructions .ROUTE .COMPLEX Qty: 34 3RF Dose Instruction: USE 2 INHALATIONS BY MOUTH 4 TIMES DAILY NEEDED FOR SHORTNESS OF BREATH OR WHEEZING Rx Instructions: USE 2 INHALATIONS BY MOUTH 4 TIMES DAILY NEEDED FOR SHORTNESS OF BREATH OR WHEEZING hydrochlorothiazide 12.5 mg tablet See Rx Instructions .ROUTE .COMPLEX Qty: 100 2RF Dose Instruction: TAKE 1 TABLET BY MOUTH DAILY Rx Instructions: TAKE 1 TABLET BY MOUTH DAILY losartan 25 mg tablet See Rx Instructions .ROUTE .COMPLEX Qty: 100 2RF Dose Instruction: TAKE 1 TABLET BY MOUTH DAILY Rx Instructions: TAKE 1 TABLET BY MOUTH DAILY pravastatin 40 mg tablet See Rx Instructions .ROUTE .COMPLEX Qty: 90 0RF Dose Instruction: TAKE 1 TABLET BY MOUTH EVERY DAY AT BEDTIME Rx Instructions: TAKE 1 TABLET BY MOUTH EVERY DAY AT BEDTIME Follow-up/Referrals: Johann Lobato DO [Primary Care Provider] - 3 Days Time of Disposition: 16:24
[2024-09-30 16:01] VITALS: BP 137/66; PULSE 69; RESP 18; TEMP 36.9; O2SAT 100
== END 2024-09-30 16:41 | disposition home or self-care (01) ==
PROVIDERS: Emergency Provider Nurse Practitioner Family; PCP Family Medicine
DX: S90.32XA Contusion of left foot, initial encounter (principal); W20.8XXA Other cause of strike by thrown, projected or falling object, initial encounter; J44.9 Chronic obstructive pulmonary disease, unspecified; M19.90 Unspecified osteoarthritis, unspecified site; E78.5 Hyperlipidemia, unspecified; K21.9 Gastro-esophageal reflux disease without esophagitis; I25.2 Old myocardial infarction; Z86.73 Personal history of transient ischemic attack (TIA), and cerebral infarction without residual deficits; Z85.118 Personal history of other malignant neoplasm of bronchus and lung; Z95.5 Presence of coronary angioplasty implant and graft; Z87.891 Personal history of nicotine dependence
CPT/HCPCS: 73630; 99213; G0463

== ENCOUNTER → 2024-10-18 09:53 | Outpatient (CLI) | payer MEDICARE, SELFPAY | LOC: EXPCRAD 09:56 | PROVIDERS: PCP Family Medicine; Visit Provider Family Medicine | DX: M79.672 Pain in left foot (principal) | CPT/HCPCS: 73630 ==

== ENCOUNTER → 2025-02-01 10:33 | Outpatient (CLI) | payer MEDICARE, SELFPAY ==
--- NOTE | ~2025-02-01 | XR_ITS ---
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 Findings: No acute fracture or malalignment. Minimal degenerative changes with calcific tendinopathy Soft tissues unremarkable. Impression: No acute fracture or malalignment. Reviewed, dictated and finalized at location P. TIC FIXTURE BUILDER Impression: No acute fracture or malalignment.
== END ==
LOC: EXPCRAD 10:36
PROVIDERS: PCP Family Medicine; Visit Provider Family Medicine
DX: M79.602 Pain in left arm (principal)
CPT/HCPCS: 73060

== ENCOUNTER → 2025-02-21 17:14 | Outpatient (CLI) | payer MEDICARE, SELFPAY ==
--- NOTE | ~2025-02-21 | XR_ITS ---
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 Findings: No acute fracture or malalignment. No significant degenerative changes. Soft tissues unremarkable. Impression: No acute fracture or malalignment. Reviewed, dictated and finalized at location P. ESTING SUPERVISOR Impression: No acute fracture or malalignment.
== END ==
LOC: EXPCRAD 17:15
PROVIDERS: PCP Family Medicine; Visit Provider Family Medicine
DX: M79.602 Pain in left arm (principal)
CPT/HCPCS: 73060